=== PATIENT | male | born 1965 ===

== ENCOUNTER 2016-08-28 23:39 | Inpatient (IN) | payer MEDICAID ==
[2016-08-29] MEDS ORDERED: Albuterol-Ipratrop 3 mg / 0.5 (3 ml) UD INH STA ×2 (00:10→00:28)
[2016-08-29] MEDS ORDERED: Azithromycin 500 MG in Sodium Chloride 0.9% 250 ML IVPB STA (00:14)
[2016-08-29] MEDS ORDERED: Albuterol-Ipratrop 3 mg / 0.5 (3 ml) UD ONE (00:34)
[2016-08-29 01:06] LABS: VENOUS BLOOD GAS BASE EXCESS -0.1 mmol/L (0.0-2.0); VENOUS BLOOD GAS MODE ROOM AIR; VENOUS BLOOD GAS PCO2 36 mmHg (40-60); VENOUS BLOOD PH 7.43 (7.32-7.43)
[2016-08-29 01:21] LABS: BASO % 0.1 % (0.0-2.0); HEMATOCRIT 39.1 % (35.0-51.0); LYMPH # 0.8 K/uL (1.0-4.3); LYMPH % 11.5 % (20.0-40.0); MEAN CORPUSCULAR HEMOGLOBIN 27.6 pg (27.0-31.0); MEAN CORPUSCULAR HGB CONC 32.5 g/dL (33.0-37.0); MEAN PLATELET VOLUME 8.6 fl (7.2-11.7); MONO # 0.7 K/uL (0.0-0.8); MONO % 10.1 % (0.0-10.0); NEUT # 5.3 K/uL (1.8-7.0); NEUT % 78.3 % (50.0-75.0); RED CELL DISTRIBUTION WIDTH 14.2 % (11.5-14.5); WHITE BLOOD COUNT 6.7 K/uL (4.8-10.8)
[2016-08-29 01:32] LABS: ALB/GLOB RATIO 1.2 (1.0-2.1); BILIRUBIN,TOTAL 0.3 mg/dl (0.2-1.3); CALCIUM 9.2 mg/dL (8.4-10.2)
--- NOTE | 2016-08-29 01:32 | ED PDOC ---
HPI: General Adult Time Seen by Provider: 08/29/16 00:01 Chief Complaint (Nursing): Flu-like Symptoms Chief Complaint (Provider): Cough, Fever, Weakness History Per: Patient History/Exam Limitations: no limitations Onset/Duration Of Symptoms: Days (2 days) Have you had recent travel within the past 21 days to any of the following countries: [place], [place], [place] or [place]?: No Current Symptoms Are (Timing): Still Present Additional Complaint(s): Rodriguez Marroquin, a 51 year old male, with a PMHx of asthma and sleep apnea presents to the ED for cough, fever and weakness which he has been experiencing for 2 days. The patient states that he was seen 4 hours prior at [facility] where he was diagnosed with bronchitis and sent home. Xrays from [facility] were reviewed by the provider and show left lower lobe pneumonia. The patient reports no improvement with the medicine he has been prescribed. He states that he currently presenting to the ED for evaluation of shortness of breath, fever and cough. The patient describes having chills, fever and cough productive of yellow phlegm. No associated nausea, vomiting and diarrhea. Past Medical History Reviewed: Historical Data, Nursing Documentation, Vital Signs Vital Signs: Last Vital Signs Temp 100.8 F H 08/28/16 23:40 Pulse 129 H 08/28/16 23:40 Resp 17 08/28/16 23:40 BP 121/81 08/28/16 23:40 Pulse Ox 98 08/29/16 02:23 - Medical History PMH: Asthma, Diabetes, HTN Other PMH: Obesity, Eczema. - Surgical History Surgical History: No Surg Hx - Family History Family History: States: Unknown Family Hx - Social History Current smoker - smoking cessation education provided: No Ex-Smoker (has not smoked in the last 12 months): No Alcohol: None Drugs: Denies - Immunization History Hx Tetanus Toxoid Vaccination: Yes Hx Influenza Vaccination: Yes Hx Pneumococcal Vaccination: Yes - Home Medications Home Medications: Ambulatory Orders Medication Instructions Recorded Albuterol HFA [Ventolin HFA 90 1 puff IH Q6 #1 inhaler 08/28/16 mcg/actuation (8 g)] Benzonatate [Tessalon Perle] 100 mg PO TID #14 capsule 08/28/16 Cefdinir [Omnicef] 300 mg PO BID #14 cap 08/28/16 Metoprolol Succinate [Toprol XL] 100 mg PO DAILY 08/28/16 Prednisone [Deltasone] 40 mg PO DAILY #6 tablet 08/28/16 metFORMIN [glucOPHAGE] 500 mg PO DAILY 08/28/16 - Allergies Allergies/Adverse Reactions: Allergies Allergy/AdvReac Type Severity Reaction Status Date / Time No Known Allergies Allergy Verified 08/28/16 06:05 Review of Systems ROS Statement: Except As Marked, All Systems Reviewed And Found Negative Constitutional: Positive for: Fever, Chills, Weakness Respiratory: Positive for: Cough (Cough productive of yellow phlegm.), Shortness of Breath Gastrointestinal: Negative for: Nausea, Vomiting, Diarrhea Physical Exam - Reviewed Nursing Documentation Reviewed: Yes Vital Signs Reviewed: Yes - Physical Exam Appears: Positive for: Uncomfortable Head Exam: Positive for: ATRAUMATIC, NORMOCEPHALIC Skin: Positive for: Warm, Dry, Rash (Diffused psoriatic rash.) Eye Exam: Positive for: Normal appearance, EOMI, PERRL ENT: Positive for: Normal ENT Inspection Neck: Positive for: Normal, Painless ROM, Supple Cardiovascular/Chest: Positive for: Regular Rate, Rhythm, Chest Non Tender, Tachycardia Respiratory: Positive for: Rales (Bibasalar rales). Negative for: Wheezing, Respiratory Distress Gastrointestinal/Abdominal: Positive for: Bowel Sounds, Soft. Negative for: Tenderness Back: Positive for: Normal Inspection. Negative for: L CVA Tenderness, R CVA Tenderness Extremity: Positive for: Normal ROM. Negative for: Tenderness, Deformity, Swelling Neurologic/Psych: Positive for: Alert, Oriented - Laboratory Results Result Diagrams: 08/29/16 00:50 08/29/16 00:50 - ECG O2 Sat by Pulse Oximetry: 98 (RA) Pulse Ox Interpretation: Normal Medical Decision Making Medical Decision Makin:01 Initial Impression: 51 year old female presenting with pnuemonia in setting of known diabetes, eczema and sleep apnea. Initial plan: * VBG shock panel * EKG * CMP * CBC * Duoneb 3ml INH * Rocephin 1gm NS 100ml iVPB * Tylenol 650mg PO * Tylenol 975mg PO * Zithromax 500mg NS 250ml IVPB * Blood culture * Peak flow pre/post * ED observation * Admit 1:08 8 Patient will be placed on ED Observation status for further treatment., arrangements made with Dr. Duenas who covers Dr. Joshua. Dx: Pneumonia Condition: fair Scribe Attestation Documented by Lizy Molina acting as a scribe for Yifan Kamara MD. Provider Attestation: All medical record entries made by the Scribe were at my direction and personally dictated by me. I have reviewed the chart and agree that the record accurately reflects my personal performance of the history, physical exam, medical decision making, and the department course for this patient. I have also personally directed, reviewed, and agree with the discharge instructions and disposition. Disposition - Clinical Impression Clinical Impression: Pneumonia - Patient ED Disposition Is Patient to be Admitted: Yes Discussed With DrJoshua: Jorge Alberto Costa - Disposition Disposition Time: 01:00 Condition: FAIR - Pt Status Changed To: Hospital Disposition Of: Observation Curb-65 Severity Score - CURB-65 Severity Score Confusion: No Bun >19mg/dl (>7mmol/L): No Respiratory Rate greater than/equal to 30: No Systolic BP <90 or Diastolic BP less than/equal 60mmHg: No Age >64: No Curb-65 Score: 0 Percentage 30-day mortality: 0.6%
[2016-08-29] MEDS ORDERED: cefTRIAXone (Rocephin) 1 gm Inj ONE (02:55)
[2016-08-29] MEDS: guaiFENesin DM 200 mg-20 mg/10 ml UD PO PRN ×2 (06:28→15:26)
[2016-08-29] MEDS: Insulin Regular 100 units/ml SC SCH ×5 (06:29→23:24)
[2016-08-29] MEDS: Azithromycin 500 MG in Sodium Chloride 0.9% 250 ML IVPB SCH (09:56)
[2016-08-29] MEDS: Enoxaparin 40 mg Syringe SC SCH (12:09)
--- NOTE | 2016-08-29 12:28 | CP.PCM.HP ---
<Kamila Johnson - Last Filed: 08/29/16 12:23> History of Present Illness - History of Present Illness History of Present Illness: 51yo M with PMHx asthma, DM, HTN, and ADRIENNE admitted for PNA. c/o SOB x3 days. Denies fever, chest pain, wheezing. a/w productive cough. Pt evaluated at [facility] ED and d/c with omnicef for likely bronchitis. Final read on CXR shows likely LLL PNA. PMHx: as above SHx: denies FH: NC Allergies: NKDA Social hx: denies x3 evaluated with attending Present on Admission - Present on Admission Any Indicators Present on Admission: No Review of Systems - Constitutional Constitutional: absent: Chills, Fever - Cardiovascular Cardiovascular: absent: Chest Pain - Respiratory Respiratory: Cough, Dyspnea - Gastrointestinal Gastrointestinal: absent: Abdominal Pain, Diarrhea, Nausea, Vomiting - Genitourinary Genitourinary: absent: Dysuria, Hematuria - Musculoskeletal Musculoskeletal: absent: Back Pain - Neurological Neurological: absent: Headaches Past Patient History - Past Medical History & Family History Past Medical History?: Yes - Past Social History Smoking Status: Never Smoked - CARDIAC Hx Cardiac Disorders: Yes Hx Hypertension: Yes - PULMONARY Hx Respiratory Disorders: Yes Hx Asthma: Yes Hx Sleep Apnea: Yes - NEUROLOGICAL Hx Neurological Disorder: No - HEENT Hx HEENT Problems: No - RENAL Hx Chronic Kidney Disease: No - ENDOCRINE/METABOLIC Hx Endocrine Disorders: Yes Hx Diabetes Mellitus Type 2: Yes - HEMATOLOGICAL/ONCOLOGICAL Hx Blood Disorders: No - INTEGUMENTARY Hx Dermatological Problems: Yes Hx Psoriasis: Yes - MUSCULOSKELETAL/RHEUMATOLOGICAL Hx Falls: No - GENITOURINARY/GYNECOLOGICAL Hx Genitourinary Disorders: No - PSYCHIATRIC Hx Substance Use: No - SURGICAL HISTORY Other/Comment: right ankle,knee,hand surgery - ANESTHESIA Hx Anesthesia: Yes Hx Anesthesia Reactions: No Hx Malignant Hyperthermia: No Has any member of the family had a problem w/ anesthesia?: No Meds Allergies/Adverse Reactions: Allergies Allergy/AdvReac Type Severity Reaction Status Date / Time No Known Allergies Allergy Verified 08/28/16 06:05 Physical Exam - Head Exam Head Exam: ATRAUMATIC, NORMAL INSPECTION - Eye Exam Eye Exam: Normal appearance - ENT Exam ENT Exam: Mucous Membranes Moist - Respiratory Exam Respiratory Exam: Wheezes. absent: Rhonchi - Cardiovascular Exam Cardiovascular Exam: REGULAR RHYTHM - GI/Abdominal Exam GI & Abdominal Exam: Soft - Extremities Exam Extremities exam: Positive for: normal inspection - Back Exam Back exam: NORMAL INSPECTION - Neurological Exam Neurological exam: Alert, Oriented x3 - Skin Skin Exam: Dry, Warm Results - Vital Signs Recent Vital Signs: Last Vital Signs Temp 98.3 F 08/29/16 07:59 Pulse 89 08/29/16 08:57 Resp 20 08/29/16 07:59 BP 118/70 08/29/16 08:57 Pulse Ox 94 L 08/29/16 07:59 - Labs Result Diagrams: 08/29/16 00:50 08/29/16 00:50 Labs: Laboratory Results - last 24 hr 08/29/16 08/29/16 06:20 10:44 POC Glucose (mg/dL) 177 H 283 H Assessment & Plan - Assessment and Plan (Free Text) Assessment: 51yo M with PMHx asthma, DM, HTN, and ADRIENNE admitted for PNA. PNA -ceftriaxone, azithromycin -tessalon pearle -FU blood cx, sputum cx -O2 prn asthma -breathing tx DM -c/w home med -SSI -accuchecks HTN -c/w home med DVT ppx -lovenox Dispo: Will admit as inpatient from obs as pt has continued SOB. Decision To Admit - Pt Status Changed To: Hospital Disposition Of: Inpatient - Admit Certification Admit to Inpatient:: After my assessment, the patient will require hospitalization for at least two midnights. This is because of the severity of symptoms shown, intensity of services needed, and/or the medical risk in this patient being treated as an outpatient. - . Bed Request Type: Med/Surg Admitting Physician: Jorge Alberto Costa <Jorge Alberto Costa - Last Filed: 09/03/16 13:02> Results - Vital Signs Recent Vital Signs: Last Vital Signs Temp 98.6 F 09/03/16 07:59 Pulse 65 09/03/16 07:59 Resp 20 09/03/16 07:59 BP 113/85 09/03/16 09:16 Pulse Ox 98 09/03/16 07:59 - Labs Result Diagrams: 09/02/16 08:00 09/02/16 08:00 Labs: Laboratory Results - last 24 hr 09/02/16 09/02/16 09/03/16 16:18 21:52 06:25 POC Glucose (mg/dL) 164 H 189 H 175 H 09/03/16 10:40 POC Glucose (mg/dL) 167 H Assessment & Plan (1) Pneumonia Status: Acute (2) Diabetes mellitus type 2 in obese Status: Acute - Assessment and Plan (Free Text) Plan: I was present durng evaluation and examined patient and discussed with Dr Kamila almeida plans of care Jorge Alberto Costa M.D.
[2016-08-29] MEDS ORDERED: Dextrose 50% SYRINGE Inj (50 ml) IVP PRN (12:32)
[2016-08-29] MEDS ORDERED: Glucagon Recombinant 1 mg Inj IM PRN (12:32)
[2016-08-29] MEDS ORDERED: Sodium Chloride 3% for Inhalation 4 ML VIAL.NEB IH PRN (12:33)
[2016-08-29] MEDS: Albuterol-Ipratrop 3 mg / 0.5 (3 ml) UD INH SCH ×2 (15:56→19:30)
[2016-08-30] MEDS: Insulin Regular 100 units/ml SC SCH ×3 (06:38→16:43)
[2016-08-30] MEDS: Albuterol-Ipratrop 3 mg / 0.5 (3 ml) UD INH SCH ×4 (07:34→19:37)
[2016-08-30 07:35] LABS: HEMATOCRIT 41.1 % (35.0-51.0); MEAN CELL VOLUME 86.1 fl (80.0-94.0); MEAN CORPUSCULAR HEMOGLOBIN 27.9 pg (27.0-31.0); MEAN CORPUSCULAR HGB CONC 32.4 g/dL (33.0-37.0); RED CELL DISTRIBUTION WIDTH 14.5 % (11.5-14.5); WHITE BLOOD COUNT 6.8 K/uL (4.8-10.8)
[2016-08-30 07:42] LABS: BLOOD UREA NITROGEN 11 mg/dl (9-20); CALCIUM 8.6 mg/dL (8.4-10.2); CARBON DIOXIDE 25 mmol/L (22-30); CHLORIDE 101 mmol/L (98-107); GFR AFRICAN-AMERICAN > 60; GLUCOSE,RANDOM 157 mg/dL (75-110); SODIUM 136 mmol/l (132-148)
[2016-08-30] MEDS: Enoxaparin 40 mg Syringe SC SCH (08:42)
[2016-08-30] MEDS: Azithromycin 500 MG in Sodium Chloride 0.9% 250 ML IVPB SCH (08:46)
--- NOTE | 2016-08-30 10:48 | PQF GENQUE ---
Dr. Costa, 2 (two) queries as follows: 1. Please clarify type of asthma: if known Childhood Cough variant Exercise induced Late onset Mild intermittent Mild persistent Moderate persistent Severe persistent With bronchitis(please clarify acuity of bronchitis) With chronic lung disease (please document specific chronic lung disease) Other (please specify) OR: Unable to determine OR: Unknown 2. Please clarify acuity of asthma: if known Uncomplicated With exacerbation(acute) With status asthmaticus OR: Unable to determine OR: Unknown -H and P: diagnoses include Pneumonia and asthma -Duoneb stat x 2 in ED: followed by q 4 hrs, O2 This form is a permanent part of the medical record Clarification of your documentation is requested to better reflect the severity of illness and intensity of treatment of your patient. Indicators present [] Specify: [] [] Specify: [] [] Specify: [] [] Specify: [] Location in the medical record that reflects the above clinical findings: [] Treatment Provided: [] PHYSICIAN'S RESPONSE Based on your medical judgment of the clinical indicators outlined above please clarify the following: [] Practitioner response [] If unable to determine, please check the box, sign and date. Present On Admission (POA) Indicator: [] Present at the time of admission [] Not present at the time of admission [] Clinically Undetermined In responding to this query, please exercise your independent professional judgment. The fact that a question is asked does not imply that any particular answer is desired or expected. Thank you for your clarification on this documentation. If you have any questions please call. * Thank you, Ange Suarez RN BSN ext. #[phone] MTDD
--- NOTE | 2016-08-30 10:50 | PQF GENQUE ---
Dr. Costa, Please specify type of pneumonia :if known Aspiration pneumonia Please indicate if this is postprocedural Bacterial (specify organism) Bronchopneumonia (specify organism) Interstitual pneumonia Organizing pneumonia/BOOP Pneumonia with influenza, dario flu, or H1N1 flu RSV pneumonia Viral pneumonia Other pneumonia (specify organism or type) if known OR: Unable to determine OR:Unknown Please specify the organism causing the pneumonia: if known after the work up is completed Note: CAP, HAP, and HCAP indicate where the pneumonia was acquired, not a specific type. H and P: PNA -ceftriaxone, azithromycin -tessalon pearle -FU blood cx, sputum cx -O2 prn asthma -breathing tx WBC: 6.7->6.8 left shift blood culture prelim :no growth after 24 hrs This form is a permanent part of the medical record Clarification of your documentation is requested to better reflect the severity of illness and intensity of treatment of your patient. Indicators present [] Specify: [] [] Specify: [] [] Specify: [] [] Specify: [] Location in the medical record that reflects the above clinical findings: [] Treatment Provided: [] PHYSICIAN'S RESPONSE Based on your medical judgment of the clinical indicators outlined above please clarify the following: [] Practitioner response [] If unable to determine, please check the box, sign and date. Present On Admission (POA) Indicator: [] Present at the time of admission [] Not present at the time of admission [] Clinically Undetermined In responding to this query, please exercise your independent professional judgment. The fact that a question is asked does not imply that any particular answer is desired or expected. Thank you for your clarification on this documentation. If you have any questions please call. * Thank you, Ange Suarez RN BSN ext. #[phone] MTDD
--- NOTE | 2016-08-30 10:52 | PQF GENQUE ---
Dr. Costa, 2 (two) queries as follows: In agreement with the BMI:40.7 listed in the EMR? (1) If you agree please add the BMI to your progress note (2) Please include any associated diagnosis OR: Disagree OR: Other explanation of clinical finding OR: Unable to determine Listed in the EMR:6ft 300lb BMI:40.7 This form is a permanent part of the medical record Clarification of your documentation is requested to better reflect the severity of illness and intensity of treatment of your patient. Indicators present [] Specify: [] [] Specify: [] [] Specify: [] [] Specify: [] Location in the medical record that reflects the above clinical findings: [] Treatment Provided: [] PHYSICIAN'S RESPONSE Based on your medical judgment of the clinical indicators outlined above please clarify the following: [] Practitioner response [] If unable to determine, please check the box, sign and date. Present On Admission (POA) Indicator: [] Present at the time of admission [] Not present at the time of admission [] Clinically Undetermined In responding to this query, please exercise your independent professional judgment. The fact that a question is asked does not imply that any particular answer is desired or expected. Thank you for your clarification on this documentation. If you have any questions please call. * Thank you, Ange Suarez RN BSN ext. #[phone] MTDD
--- NOTE | 2016-08-30 11:09 | RAD ---
HISTORY: F/u pneumonia COMPARISON: No prior move TECHNIQUE: Chest PA and lateral FINDINGS: LUNGS: Left lower lobe infiltrate consistent with this patient's history of pneumonia. PLEURA: No significant pleural effusion identified. No pneumothorax apparent. CARDIOVASCULAR: Normal. OSSEOUS STRUCTURES: No significant abnormalities. VISUALIZED UPPER ABDOMEN: Normal. OTHER FINDINGS: None. IMPRESSION: Left lower lobe infiltrate consistent with this patient's history of pneumonia. Bold
--- NOTE | 2016-08-30 15:55 | CP.PCM.PN ---
<Kamila Johnson - Last Filed: 08/30/16 15:51> Subjective - Date & Time of Evaluation Date of Evaluation: 08/30/16 Time of Evaluation: 15:51 - Subjective Subjective: d/w attending. no overnight events. feeling better, SOB improved. tolerating PO. Objective - Vital Signs/Intake and Output Vital Signs (last 24 hours): Temp Pulse Resp BP Pulse Ox 99 F 95 H 22 144/70 93 L 08/30/16 08:26 08/30/16 08:40 08/30/16 08:26 08/30/16 08:40 08/30/16 08:26 - Medications Medications: Current Medications Acetaminophen (Tylenol 325mg Tab) 650 mg PO Q4 PRN PRN Reason: temp 101 and above Last Admin: 08/30/16 00:13 Dose: 650 mg Albuterol/Ipratropium (Duoneb 3 Mg/0.5 Mg (3 Ml) Ud) 3 ml INH RQID [facility] Last Admin: 08/30/16 11:12 Dose: 3 ml Benzonatate (Tessalon Perles) 100 mg PO TID [facility] Last Admin: 08/29/16 16:54 Dose: 100 mg Dextrose (Dextrose 50% Inj) 0 ml IVP STAT PRN; Protocol PRN Reason: Hypoglycemia Protocol Enoxaparin Sodium (Lovenox) 40 mg SC DAILY [facility] PRN Reason: Protocol Last Admin: 08/30/16 08:42 Dose: 40 mg Glucagon (Glucagen Diagnostic Kit) 0 mg IM STAT PRN; Protocol PRN Reason: Hypoglycemia Protocol Guaifenesin/Dextromethorphan (Robitussin Dm) 10 ml PO Q6 PRN PRN Reason: Cough Last Admin: 08/29/16 15:26 Dose: 10 ml Ceftriaxone Sodium 1 gm/ (Sodium Chloride) 100 mls @ 100 mls/hr IVPB DAILY [facility] Last Admin: 08/30/16 08:43 Dose: 100 mls/hr Azithromycin 500 mg/ Sodium (Chloride) 250 mls @ 250 mls/hr IVPB DAILY [facility] Last Admin: 08/30/16 08:46 Dose: 250 mls/hr Insulin Human Regular (Humulin R) 0 units SC ACCU-CHECK CHUN PRN Reason: Protocol Last Admin: 08/30/16 12:38 Dose: 2 unit Losartan Potassium (Cozaar) 100 mg PO DAILY [facility] Last Admin: 08/30/16 08:40 Dose: 100 mg Metformin HCl (Glucophage) 500 mg PO DAILY [facility] Last Admin: 08/30/16 08:41 Dose: 500 mg - Labs Labs: 08/30/16 07:04 08/30/16 07:04 - Constitutional Appears: Non-toxic, No Acute Distress - Head Exam Head Exam: ATRAUMATIC, NORMAL INSPECTION - Eye Exam Eye Exam: Normal appearance - ENT Exam ENT Exam: Mucous Membranes Moist - Neck Exam Neck Exam: Normal Inspection - Respiratory Exam Respiratory Exam: Clear to Ausculation Bilateral - Cardiovascular Exam Cardiovascular Exam: REGULAR RHYTHM - GI/Abdominal Exam GI & Abdominal Exam: Soft - Extremities Exam Extremities Exam: Normal Inspection - Back Exam Back Exam: NORMAL INSPECTION - Neurological Exam Neurological Exam: Alert, Oriented x3 - Skin Skin Exam: Dry, Warm Additional comments: psoriasis trunk extremities Assessment and Plan - Assessment and Plan (Free Text) Assessment: 51yo M with PMHx asthma, DM, HTN, and ADRIENNE admitted for PNA. community aquired PNA -febrile -ceftriaxone, azithromycin -tessalon pearle -blood cx NGTD -FU sputum cx -O2 prn asthma, type unspecified -breathing tx DM -c/w home med -SSI -accuchecks HTN -c/w home med morbid obesity -BMI 40.7 DVT ppx -lovenox Dispo: likely d/c tmrw if afebrile with ceftin and zithromax <Jorge Alberto Costa - Last Filed: 09/03/16 12:18> Objective - Vital Signs/Intake and Output Vital Signs (last 24 hours): Temp Pulse Resp BP Pulse Ox 98.6 F 65 20 113/85 98 09/03/16 07:59 09/03/16 07:59 09/03/16 07:59 09/03/16 09:16 09/03/16 07:59 - Medications Medications: Current Medications Acetaminophen (Tylenol 325mg Tab) 650 mg PO Q4 PRN PRN Reason: fever, headache Last Admin: 09/03/16 04:32 Dose: 650 mg Albuterol/Ipratropium (Duoneb 3 Mg/0.5 Mg (3 Ml) Ud) 3 ml INH RQID [facility] Last Admin: 09/03/16 11:35 Dose: 3 ml Dextrose (Dextrose 50% Inj) 0 ml IVP STAT PRN; Protocol PRN Reason: Hypoglycemia Protocol Enoxaparin Sodium (Lovenox) 40 mg SC DAILY [facility] PRN Reason: Protocol Last Admin: 09/03/16 09:16 Dose: 40 mg Glucagon (Glucagen Diagnostic Kit) 0 mg IM STAT PRN; Protocol PRN Reason: Hypoglycemia Protocol Insulin Human Regular (Humulin R) 0 units SC ACCU-CHECK CHUN PRN Reason: Protocol Last Admin: 09/03/16 06:36 Dose: 1 u Losartan Potassium (Cozaar) 100 mg PO DAILY [facility] Last Admin: 09/03/16 09:16 Dose: 100 mg Metformin HCl (Glucophage) 500 mg PO DAILY [facility] Last Admin: 09/03/16 09:19 Dose: Not Given - Labs Labs: 09/02/16 08:00 09/02/16 08:00 Assessment and Plan - Assessment and Plan (Free Text) Plan: I was present during evaluation and discussed with Dr Kamila almeida plans of care. Jorge Alberto Costa M.D.
[2016-08-30] MEDS: guaiFENesin DM 200 mg-20 mg/10 ml UD PO PRN (22:27)
[2016-08-31] MEDS: Insulin Regular 100 units/ml SC SCH ×5 (00:27→23:14)
[2016-08-31 02:32] LABS: RBC URINE 2 /hpf (0-3); URINE BILIRUBIN NEGATIVE (NEGATIVE); URINE BLOOD NEGATIVE (NEGATIVE); URINE COLOR YELLOW (YELLOW); URINE GLUCOSE (UA) NEG (Normal); URINE KETONE NEGATIVE (NEGATIVE); URINE LEUKOCYTE ESTERASE NEG Leu/uL (Negative); URINE PROTEIN 30 mg/dL (NEGATIVE); URINE UROBILINOGEN 0.2-1.0 mg/dL (0.2-1.0); WBC URINE 1 /hpf (0-5)
[2016-08-31 07:53] LABS: HEMATOCRIT 39.4 % (35.0-51.0); MEAN CELL VOLUME 85.7 fl (80.0-94.0); MEAN CORPUSCULAR HGB CONC 32.6 g/dL (33.0-37.0); RED CELL DISTRIBUTION WIDTH 14.5 % (11.5-14.5); WHITE BLOOD COUNT 5.8 K/uL (4.8-10.8)
[2016-08-31] MEDS: Albuterol-Ipratrop 3 mg / 0.5 (3 ml) UD INH SCH ×4 (08:05→20:04)
[2016-08-31 08:15] LABS: BLOOD UREA NITROGEN 10 mg/dl (9-20); CALCIUM 8.9 mg/dL (8.4-10.2); CARBON DIOXIDE 28 mmol/L (22-30); CHLORIDE 101 mmol/L (98-107); GFR AFRICAN-AMERICAN > 60; GLUCOSE,RANDOM 165 mg/dL (75-110); POTASSIUM 3.7 MMOL/L (3.6-5.0); SODIUM 138 mmol/l (132-148)
[2016-08-31] MEDS: Enoxaparin 40 mg Syringe SC SCH (08:36)
[2016-08-31] MEDS: Azithromycin 500 MG in Sodium Chloride 0.9% 250 ML IVPB SCH (08:37)
[2016-08-31] MEDS ORDERED: Sodium Chloride 3% for Inhalation 4 ML VIAL.NEB IH PRN (09:07)
--- NOTE | 2016-08-31 09:10 | CP.PCM.PN ---
<Kamila Johnson - Last Filed: 08/31/16 09:04> Subjective - Date & Time of Evaluation Date of Evaluation: 08/31/16 Time of Evaluation: 09:04 - Subjective Subjective: evaluated with attending. no overnight events. feeling better, SOB improved. tolerating PO. c/o blood in sputum x1 Objective - Vital Signs/Intake and Output Vital Signs (last 24 hours): Temp Pulse Resp BP Pulse Ox 98 F 63 20 120/87 94 L 08/31/16 08:16 08/31/16 08:35 08/31/16 08:16 08/31/16 08:35 08/31/16 08:16 - Medications Medications: Current Medications Acetaminophen (Tylenol 325mg Tab) 650 mg PO Q4 PRN PRN Reason: fever, headache Albuterol/Ipratropium (Duoneb 3 Mg/0.5 Mg (3 Ml) Ud) 3 ml INH RQID [facility] Last Admin: 08/31/16 08:05 Dose: 3 ml Benzonatate (Tessalon Perles) 100 mg PO TID [facility] Last Admin: 08/31/16 08:40 Dose: 100 mg Dextrose (Dextrose 50% Inj) 0 ml IVP STAT PRN; Protocol PRN Reason: Hypoglycemia Protocol Enoxaparin Sodium (Lovenox) 40 mg SC DAILY [facility] PRN Reason: Protocol Last Admin: 08/31/16 08:36 Dose: 40 mg Glucagon (Glucagen Diagnostic Kit) 0 mg IM STAT PRN; Protocol PRN Reason: Hypoglycemia Protocol Guaifenesin/Dextromethorphan (Robitussin Dm) 10 ml PO Q6 PRN PRN Reason: Cough Last Admin: 08/30/16 22:27 Dose: 10 ml Ceftriaxone Sodium 1 gm/ (Sodium Chloride) 100 mls @ 100 mls/hr IVPB DAILY [facility] Last Admin: 08/31/16 08:36 Dose: 100 mls/hr Azithromycin 500 mg/ Sodium (Chloride) 250 mls @ 250 mls/hr IVPB DAILY [facility] Last Admin: 08/31/16 08:37 Dose: 250 mls/hr Insulin Human Regular (Humulin R) 0 units SC ACCU-CHECK [facility] PRN Reason: Protocol Last Admin: 08/31/16 07:27 Dose: 1 unit Losartan Potassium (Cozaar) 100 mg PO DAILY [facility] Last Admin: 08/31/16 08:35 Dose: 100 mg Metformin HCl (Glucophage) 500 mg PO DAILY [facility] Last Admin: 08/31/16 08:36 Dose: 500 mg - Labs Labs: 08/31/16 06:50 08/31/16 06:50 - Constitutional Appears: Non-toxic, No Acute Distress - Head Exam Head Exam: NORMAL INSPECTION - Eye Exam Eye Exam: Normal appearance - ENT Exam ENT Exam: Mucous Membranes Moist - Neck Exam Neck Exam: Normal Inspection - Respiratory Exam Respiratory Exam: Clear to Ausculation Bilateral, NORMAL BREATHING PATTERN - Cardiovascular Exam Cardiovascular Exam: REGULAR RHYTHM - GI/Abdominal Exam GI & Abdominal Exam: Soft - Extremities Exam Extremities Exam: Normal Inspection - Back Exam Back Exam: NORMAL INSPECTION - Neurological Exam Neurological Exam: Alert, Oriented x3 - Skin Skin Exam: Dry, Warm Assessment and Plan - Assessment and Plan (Free Text) Assessment: 51yo M with PMHx asthma, DM, HTN, and ADRIENNE admitted for PNA. community aquired PNA -afebrile -ceftriaxone, azithromycin -tessalon pearle -blood cx NGTD -FU sputum cx -repeat sputum cx -CT chest -O2 prn asthma, type unspecified -breathing tx DM -c/w home med -SSI -accuchecks HTN -c/w home med morbid obesity -BMI 40.7 DVT ppx -lovenox Dispo: likely d/c tmrw after repeat sputum cx and CT chest with ceftin and zithromax <Jorge Alberto Costa - Last Filed: 09/03/16 12:19> Objective - Vital Signs/Intake and Output Vital Signs (last 24 hours): Temp Pulse Resp BP Pulse Ox 98.6 F 65 20 113/85 98 09/03/16 07:59 09/03/16 07:59 09/03/16 07:59 09/03/16 09:16 09/03/16 07:59 - Medications Medications: Current Medications Acetaminophen (Tylenol 325mg Tab) 650 mg PO Q4 PRN PRN Reason: fever, headache Last Admin: 09/03/16 04:32 Dose: 650 mg Albuterol/Ipratropium (Duoneb 3 Mg/0.5 Mg (3 Ml) Ud) 3 ml INH RQID [facility] Last Admin: 09/03/16 11:35 Dose: 3 ml Dextrose (Dextrose 50% Inj) 0 ml IVP STAT PRN; Protocol PRN Reason: Hypoglycemia Protocol Enoxaparin Sodium (Lovenox) 40 mg SC DAILY [facility] PRN Reason: Protocol Last Admin: 09/03/16 09:16 Dose: 40 mg Glucagon (Glucagen Diagnostic Kit) 0 mg IM STAT PRN; Protocol PRN Reason: Hypoglycemia Protocol Insulin Human Regular (Humulin R) 0 units SC ACCU-CHECK [facility] PRN Reason: Protocol Last Admin: 09/03/16 06:36 Dose: 1 u Losartan Potassium (Cozaar) 100 mg PO DAILY [facility] Last Admin: 09/03/16 09:16 Dose: 100 mg Metformin HCl (Glucophage) 500 mg PO DAILY [facility] Last Admin: 09/03/16 09:19 Dose: Not Given - Labs Labs: 09/02/16 08:00 09/02/16 08:00 Assessment and Plan - Assessment and Plan (Free Text) Plan: I was present during evaluation and discussed with Dr Kamila almeida plans of care. Jorge Alberto Costa M.D.
--- NOTE | 2016-08-31 16:05 | CT ---
PROCEDURE: CT Chest without contrast HISTORY: PNA COMPARISON: None. TECHNIQUE: Contiguous axial images were obtained through the chest without intravenous contrast enhancement. Sagittal and coronal reconstructions were performed. Radiation dose (DLP): 719 mGy-cm. This CT exam was performed using one or more of the following dose reduction techniques: Automated exposure control, adjustment of the mA and/or kV according to patient size, and/or use of iterative reconstruction technique. FINDINGS: LUNGS: Large left lower lobe infiltrate with areas of ground-glass density predominantly and few areas of consolidation. MEDIASTINUM: Unremarkable thoracic aorta. No aneurysm. Normal sized heart. Main pulmonary artery unremarkable. No vascular congestion. No lymphadenopathy. PLEURA: No pleural fluid. No pneumothorax. BONES: No fracture. No destructive lesion. UPPER ABDOMEN: Grossly unremarkable. OTHER FINDINGS: None. IMPRESSION: Large ground-glass density infiltrates/pneumonia at the left base.
[2016-08-31] MEDS: guaiFENesin DM 200 mg-20 mg/10 ml UD PO PRN (23:57)
[2016-09-01] MEDS: Insulin Regular 100 units/ml SC SCH ×4 (06:40→22:00)
[2016-09-01] MEDS: Albuterol-Ipratrop 3 mg / 0.5 (3 ml) UD INH SCH ×4 (07:52→19:01)
[2016-09-01] MEDS: Enoxaparin 40 mg Syringe SC SCH (09:12)
[2016-09-01] MEDS: Azithromycin 500 MG in Sodium Chloride 0.9% 250 ML IVPB SCH (09:14)
[2016-09-01 10:47] LABS: HEMATOCRIT 39.5 % (35.0-51.0); MEAN CELL VOLUME 85.7 fl (80.0-94.0); MEAN CORPUSCULAR HEMOGLOBIN 27.9 pg (27.0-31.0); MEAN CORPUSCULAR HGB CONC 32.6 g/dL (33.0-37.0); RED CELL DISTRIBUTION WIDTH 14.5 % (11.5-14.5); WHITE BLOOD COUNT 4.7 K/uL (4.8-10.8)
[2016-09-01 10:57] LABS: BLOOD UREA NITROGEN 10 mg/dl (9-20); CALCIUM 9.3 mg/dL (8.4-10.2); CARBON DIOXIDE 27 mmol/L (22-30); CHLORIDE 100 mmol/L (98-107); GFR AFRICAN-AMERICAN > 60; GLUCOSE,RANDOM 213 mg/dL (75-110); SODIUM 136 mmol/l (132-148)
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
--- NOTE | 2016-09-01 14:58 | CP.PCM.PN ---
<Kamila Johnson - Last Filed: 09/01/16 14:52> Subjective - Date & Time of Evaluation Date of Evaluation: 09/01/16 Time of Evaluation: 14:52 - Subjective Subjective: evaluated with attending. no overnight events. feeling better, SOB improved. tolerating PO. Objective - Vital Signs/Intake and Output Vital Signs (last 24 hours): Temp Pulse Resp BP Pulse Ox 98.2 F 74 18 136/83 93 L 09/01/16 08:18 09/01/16 09:11 09/01/16 08:18 09/01/16 09:11 09/01/16 08:18 - Medications Medications: Current Medications Acetaminophen (Tylenol 325mg Tab) 650 mg PO Q4 PRN PRN Reason: fever, headache Albuterol/Ipratropium (Duoneb 3 Mg/0.5 Mg (3 Ml) Ud) 3 ml INH RQID [facility] Last Admin: 09/01/16 11:03 Dose: 3 ml Dextrose (Dextrose 50% Inj) 0 ml IVP STAT PRN; Protocol PRN Reason: Hypoglycemia Protocol Enoxaparin Sodium (Lovenox) 40 mg SC DAILY [facility] [place] PRN Reason: Protocol Last Admin: 09/01/16 09:12 Dose: 40 mg Glucagon (Glucagen Diagnostic Kit) 0 mg IM STAT PRN; Protocol PRN Reason: Hypoglycemia Protocol Guaifenesin/Dextromethorphan (Mucinex-Dm 600-30 Mg) 2 tab PO BID [facility] Ceftriaxone Sodium 1 gm/ (Sodium Chloride) 100 mls @ 100 mls/hr IVPB DAILY [facility] [place] Last Admin: 09/01/16 09:13 Dose: 100 mls/hr Azithromycin 500 mg/ Sodium (Chloride) 250 mls @ 250 mls/hr IVPB DAILY [facility] [place] Last Admin: 09/01/16 09:14 Dose: 250 mls/hr Insulin Human Regular (Humulin R) 0 units SC ACCU-CHECK [facility] [place] PRN Reason: Protocol Last Admin: 09/01/16 13:34 Dose: 1 unit Losartan Potassium (Cozaar) 100 mg PO DAILY [facility] [place] Last Admin: 09/01/16 09:11 Dose: 100 mg Metformin HCl (Glucophage) 500 mg PO DAILY [facility] [place] Last Admin: 09/01/16 11:07 Dose: 500 mg - Labs Labs: 09/01/16 10:15 09/01/16 10:15 - Constitutional Appears: Non-toxic, No Acute Distress - Head Exam Head Exam: NORMAL INSPECTION - Eye Exam Eye Exam: Normal appearance - ENT Exam ENT Exam: Mucous Membranes Moist - Neck Exam Neck Exam: Normal Inspection - Respiratory Exam Respiratory Exam: Rales (LML) - Cardiovascular Exam Cardiovascular Exam: REGULAR RHYTHM - GI/Abdominal Exam GI & Abdominal Exam: Soft - Extremities Exam Extremities Exam: Normal Inspection - Back Exam Back Exam: NORMAL INSPECTION - Neurological Exam Neurological Exam: Alert, Oriented x3 - Skin Skin Exam: Dry, Warm Assessment and Plan - Assessment and Plan (Free Text) Assessment: 51yo M with PMHx asthma, DM, HTN, and ADRIENNE admitted for PNA. community aquired PNA -afebrile -ceftriaxone, azithromycin -tessalon pearle -blood cx NGTD -FU sputum cx -repeat sputum cx -CT chest: PNA -O2 prn -pulm c/s asthma, type unspecified -breathing tx DM -c/w home med -SSI -accuchecks HTN -c/w home med morbid obesity -BMI 40.7 DVT ppx -lovenox Dispo: likely d/c tmrw if afebrile <Jorge Alberto Costa - Last Filed: 09/03/16 12:19> Objective - Vital Signs/Intake and Output Vital Signs (last 24 hours): Temp Pulse Resp BP Pulse Ox 98.6 F 65 20 113/85 98 09/03/16 07:59 09/03/16 07:59 09/03/16 07:59 09/03/16 09:16 09/03/16 07:59 - Medications Medications: Current Medications Acetaminophen (Tylenol 325mg Tab) 650 mg PO Q4 PRN PRN Reason: fever, headache Last Admin: 09/03/16 04:32 Dose: 650 mg Albuterol/Ipratropium (Duoneb 3 Mg/0.5 Mg (3 Ml) Ud) 3 ml INH RQID [facility] Last Admin: 09/03/16 11:35 Dose: 3 ml Dextrose (Dextrose 50% Inj) 0 ml IVP STAT PRN; Protocol PRN Reason: Hypoglycemia Protocol Enoxaparin Sodium (Lovenox) 40 mg SC DAILY [facility] PRN Reason: Protocol Last Admin: 09/03/16 09:16 Dose: 40 mg Glucagon (Glucagen Diagnostic Kit) 0 mg IM STAT PRN; Protocol PRN Reason: Hypoglycemia Protocol Insulin Human Regular (Humulin R) 0 units SC ACCU-CHECK [facility] PRN Reason: Protocol Last Admin: 09/03/16 06:36 Dose: 1 u Losartan Potassium (Cozaar) 100 mg PO DAILY [facility] [place] Last Admin: 09/03/16 09:16 Dose: 100 mg Metformin HCl (Glucophage) 500 mg PO DAILY [facility] [place] Last Admin: 09/03/16 09:19 Dose: Not Given - Labs Labs: 09/02/16 08:00 09/02/16 08:00 Assessment and Plan - Assessment and Plan (Free Text) Plan: I was present during evaluation and discussed with Dr Kamila almeida plans of care and mgt. Jorge Alberto Costa M.D.
[2016-09-01] MEDS ORDERED: guaiFENesin-DM 600-30 mg ER Tab PO SCH (17:00)
[2016-09-01] MEDS: guaiFENesin-DM 600-30 mg ER Tab PO SCH (18:40)
--- NOTE | 2016-09-01 19:12 | CARD ---
APPROVED REPORT EKG Measurement Heart [id number] <Conclusion> Sinus tachycardia Possible Left atrial enlargement Left ventricular hypertrophy Nonspecific ST abnormality Abnormal ECG
[2016-09-02] MEDS: Albuterol-Ipratrop 3 mg / 0.5 (3 ml) UD INH SCH ×5 (07:48→20:02)
[2016-09-02 09:32] LABS: HEMATOCRIT 40.9 % (35.0-51.0); MEAN CELL VOLUME 84.1 fl (80.0-94.0); MEAN CORPUSCULAR HEMOGLOBIN 28.2 pg (27.0-31.0); MEAN CORPUSCULAR HGB CONC 33.5 g/dL (33.0-37.0); RED CELL DISTRIBUTION WIDTH 14.5 % (11.5-14.5); WHITE BLOOD COUNT 4.5 K/uL (4.8-10.8)
[2016-09-02 09:39] LABS: ALKALINE PHOSPHATASE 68 U/L (38-126); ALT/SGPT 74 U/L (21-72); AST/SGOT 63 U/L (17-59); BILIRUBIN,TOTAL 0.6 mg/dl (0.2-1.3); BLOOD UREA NITROGEN 12 mg/dl (9-20); CALCIUM 9.4 mg/dL (8.4-10.2); CARBON DIOXIDE 24 mmol/L (22-30); CHLORIDE 102 mmol/L (98-107); GFR AFRICAN-AMERICAN > 60; GLUCOSE,RANDOM 157 mg/dL (75-110); POTASSIUM 4.2 MMOL/L (3.6-5.0); SODIUM 137 mmol/l (132-148); TOTAL PROTEIN 7.8 G/DL (6.3-8.2)
[2016-09-02] MEDS: Insulin Regular 100 units/ml SC SCH ×4 (09:55→21:59)
[2016-09-02] MEDS: guaiFENesin-DM 600-30 mg ER Tab PO SCH (09:57)
[2016-09-02] MEDS: Enoxaparin 40 mg Syringe SC SCH (09:57)
[2016-09-02] MEDS: Azithromycin 500 MG in Sodium Chloride 0.9% 250 ML IVPB SCH (09:58)
--- NOTE | 2016-09-02 11:53 | CP.PCM.PN ---
Subjective - Date & Time of Evaluation Date of Evaluation: 09/02/16 Time of Evaluation: 11:52 - Subjective Subjective: patient still has cough and not comfortable going home Has no fever in the last 24 hrs. Objective - Vital Signs/Intake and Output Vital Signs (last 24 hours): Temp Pulse Resp BP Pulse Ox 98.3 F 75 20 138/85 96 09/02/16 07:38 09/02/16 09:54 09/02/16 07:38 09/02/16 09:54 09/02/16 07:38 - Medications Medications: Current Medications Acetaminophen (Tylenol 325mg Tab) 650 mg PO Q4 PRN PRN Reason: fever, headache Albuterol/Ipratropium (Duoneb 3 Mg/0.5 Mg (3 Ml) Ud) 3 ml INH RQID [facility] Last Admin: 09/02/16 07:48 Dose: 3 ml Dextrose (Dextrose 50% Inj) 0 ml IVP STAT PRN; Protocol PRN Reason: Hypoglycemia Protocol Enoxaparin Sodium (Lovenox) 40 mg SC DAILY [facility] PRN Reason: Protocol Last Admin: 09/02/16 09:57 Dose: 40 mg Glucagon (Glucagen Diagnostic Kit) 0 mg IM STAT PRN; Protocol PRN Reason: Hypoglycemia Protocol Guaifenesin/Dextromethorphan (Mucinex-Dm 600-30 Mg) 2 tab PO BID [facility] Last Admin: 09/02/16 09:57 Dose: 2 tab Ceftriaxone Sodium 1 gm/ (Sodium Chloride) 100 mls @ 100 mls/hr IVPB DAILY [facility] Last Admin: 09/02/16 09:57 Dose: 100 mls/hr Azithromycin 500 mg/ Sodium (Chloride) 250 mls @ 250 mls/hr IVPB DAILY [facility] Last Admin: 09/02/16 09:58 Dose: 250 mls/hr Insulin Human Regular (Humulin R) 0 units SC ACCU-CHECK [facility] PRN Reason: Protocol Last Admin: 09/02/16 09:55 Dose: 1 u Losartan Potassium (Cozaar) 100 mg PO DAILY [facility] Last Admin: 09/02/16 09:54 Dose: 100 mg Metformin HCl (Glucophage) 500 mg PO DAILY [facility] Last Admin: 09/02/16 10:04 Dose: Not Given - Labs Labs: 09/02/16 08:00 09/02/16 08:00 - Head Exam Head Exam: NORMAL INSPECTION - Eye Exam Eye Exam: Normal appearance - ENT Exam ENT Exam: Mucous Membranes Moist - Respiratory Exam Respiratory Exam: Decreased Breath Sounds, Clear to Ausculation Bilateral - Cardiovascular Exam Cardiovascular Exam: REGULAR RHYTHM - GI/Abdominal Exam GI & Abdominal Exam: Normal Bowel Sounds Assessment and Plan (1) Pneumonia Status: Acute (2) Diabetes mellitus type 2 in obese Status: Acute - Assessment and Plan (Free Text) Plan: cont meds cont tx metfomrin IV antibiotics DCplans.
--- NOTE | 2016-09-02 12:31 | CP.PCM.PN ---
Subjective - Date & Time of Evaluation Date of Evaluation: 09/02/16 Time of Evaluation: 12:27 - Subjective Subjective: Discussed with attending. Vital signs have been stable. Had an episode of dizziness overnight. Labs noted with mild increase in transaminase levels. Observed while asleep and noted to have snoring and apneic episodes even in a lateral position. Had discussion with him regarding his ADRIENNE: he does have nCPAP at home, but it sounds like he uses it only 'at times when I need it'. Advised him of the need for nightly use, every night, that it is not a PRN treatment. He does feel better in general and can still be discharged tomorrow which is the present plan. He will follow up with Dr Joshua as an outpatient. Objective - Vital Signs/Intake and Output Vital Signs (last 24 hours): Temp Pulse Resp BP Pulse Ox 98.3 F 75 20 138/85 96 09/02/16 07:38 09/02/16 09:54 09/02/16 07:38 09/02/16 09:54 09/02/16 07:38 - Medications Medications: Current Medications Acetaminophen (Tylenol 325mg Tab) 650 mg PO Q4 PRN PRN Reason: fever, headache Albuterol/Ipratropium (Duoneb 3 Mg/0.5 Mg (3 Ml) Ud) 3 ml INH RQID [facility] Last Admin: 09/02/16 07:48 Dose: 3 ml Dextrose (Dextrose 50% Inj) 0 ml IVP STAT PRN; Protocol PRN Reason: Hypoglycemia Protocol Enoxaparin Sodium (Lovenox) 40 mg SC DAILY [facility] PRN Reason: Protocol Last Admin: 09/02/16 09:57 Dose: 40 mg Glucagon (Glucagen Diagnostic Kit) 0 mg IM STAT PRN; Protocol PRN Reason: Hypoglycemia Protocol Guaifenesin/Dextromethorphan (Mucinex-Dm 600-30 Mg) 2 tab PO BID [facility] Last Admin: 09/02/16 09:57 Dose: 2 tab Ceftriaxone Sodium 1 gm/ (Sodium Chloride) 100 mls @ 100 mls/hr IVPB DAILY [facility] Last Admin: 09/02/16 09:57 Dose: 100 mls/hr Azithromycin 500 mg/ Sodium (Chloride) 250 mls @ 250 mls/hr IVPB DAILY [facility] Last Admin: 09/02/16 09:58 Dose: 250 mls/hr Insulin Human Regular (Humulin R) 0 units SC ACCU-CHECK [facility] PRN Reason: Protocol Last Admin: 09/02/16 09:55 Dose: 1 u Losartan Potassium (Cozaar) 100 mg PO DAILY [facility] Last Admin: 09/02/16 09:54 Dose: 100 mg Metformin HCl (Glucophage) 500 mg PO DAILY [facility] Last Admin: 09/02/16 10:04 Dose: Not Given - Labs Labs: 09/02/16 08:00 09/02/16 08:00 Assessment and Plan (1) Cough with hemoptysis Status: Acute (2) Pneumonia Status: Acute
[2016-09-03 00:34] VITALS: RESP 20
[2016-09-03] MEDS: Insulin Regular 100 units/ml SC SCH ×2 (06:36→12:44)
[2016-09-03 08:00] VITALS: BP 113/85; PULSE 65; TEMP 98.6; O2SAT 98
[2016-09-03] MEDS: Albuterol-Ipratrop 3 mg / 0.5 (3 ml) UD INH SCH ×2 (09:09→11:35)
[2016-09-03] MEDS: Enoxaparin 40 mg Syringe SC SCH (09:16)
[2016-09-03] MEDS: Azithromycin 500 MG in Sodium Chloride 0.9% 250 ML IVPB SCH (09:22)
--- NOTE | 2016-09-03 12:23 | CP.PCM.DIS ---
Provider - Provider Date of Admission: 08/29/16 15:17 Attending physician: Jorge Alberto Costa MD Time Spent in preparation of Discharge (in minutes): 45 Diagnosis - Discharge Diagnosis (1) Pneumonia Status: Acute (2) Diabetes mellitus type 2 in obese Status: Acute Hospital Course - Lab Results Lab Results: Micro Results 08/31/16 14:00 Sputum Gram Stain - Final 08/31/16 14:00 Sputum Sputum Culture - Final NORMAL ORAL INO 08/30/16 02:50 Sputum Gram Stain - Final 08/30/16 02:50 Sputum Sputum Culture - Final NORMAL ORAL INO 08/31/16 07:53 Urine,Clean Catch Urine Culture - Final No Growth (<1,000 CFU/ML) Most Recent Lab Values WBC 4.5 K/uL (4.8-10.8) L 09/02/16 08:00 RBC 4.86 Mil/uL (4.40-5.90) 09/02/16 08:00 Hgb 13.7 g/dL (12.0-18.0) 09/02/16 08:00 Hct 40.9 % (35.0-51.0) 09/02/16 08:00 MCV 84.1 fl (80.0-94.0) 09/02/16 08:00 MCH 28.2 pg (27.0-31.0) 09/02/16 08:00 MCHC 33.5 g/dL (33.0-37.0) 09/02/16 08:00 RDW 14.5 % (11.5-14.5) 09/02/16 08:00 Plt Count 277 K/uL (130-400) 09/02/16 08:00 MPV 8.6 fl (7.2-11.7) 08/29/16 00:50 Neut % (Auto) 78.3 % (50.0-75.0) H 08/29/16 00:50 Lymph % (Auto) 11.5 % (20.0-40.0) L 08/29/16 00:50 [place] % (Auto) 10.1 % (0.0-10.0) H 08/29/16 00:50 Eos % (Auto) 0.0 % (0.0-4.0) 08/29/16 00:50 Baso % (Auto) 0.1 % (0.0-2.0) 08/29/16 00:50 Neut # 5.3 K/uL (1.8-7.0) 08/29/16 00:50 Lymph # 0.8 K/uL (1.0-4.3) L 08/29/16 00:50 [place] # 0.7 K/uL (0.0-0.8) 08/29/16 00:50 Eos # 0.0 K/uL (0.0-0.7) 08/29/16 00:50 Baso # 0.0 K/uL (0.0-0.2) 08/29/16 00:50 pO2 53 mm/Hg (30-55) 08/29/16 00:57 VBG pH 7.43 (7.32-7.43) 08/29/16 00:57 VBG pCO2 36 mmHg (40-60) L 08/29/16 00:57 VBG HCO3 24.6 mmol/L 08/29/16 00:57 VBG Total CO2 25.0 mmol/L (22-28) 08/29/16 00:57 VBG O2 Sat (Calc) 93.5 % (40-65) H 08/29/16 00:57 VBG Base Excess -0.1 mmol/L (0.0-2.0) L 08/29/16 00:57 VBG Potassium 3.8 mmol/L (3.6-5.2) 08/29/16 00:57 Sodium 133.0 mmol/L (132-148) 08/29/16 00:57 Chloride 104.0 mmol/L (98-107) 08/29/16 00:57 Glucose 209 mg/dL (75-110) H 08/29/16 00:57 Lactate 2.1 mmol/L (0.7-2.1) 08/29/16 00:57 FiO2 21.0 % 08/29/16 00:57 Crit Value Called To pablo Kamara md 08/29/16 00:57 Crit Value Called By Roni 08/29/16 00:57 Crit Value Read Back Y 08/29/16 00:57 Blood Gas Notified Time 105 08/29/16 00:57 Sodium 137 mmol/l (132-148) 09/02/16 08:00 Potassium 4.2 MMOL/L (3.6-5.0) 09/02/16 08:00 Chloride 102 mmol/L (98-107) 09/02/16 08:00 Carbon Dioxide 24 mmol/L (22-30) 09/02/16 08:00 Anion Gap 15 (10-20) 09/02/16 08:00 BUN 12 mg/dl (9-20) 09/02/16 08:00 Creatinine 0.9 mg/dL (0.8-1.5) 09/02/16 08:00 Est GFR ( Amer) > 60 09/02/16 08:00 Est GFR (Non-Af Amer) > 60 09/02/16 08:00 POC Glucose (mg/dL) 167 mg/dL (65-110) H 09/03/16 10:40 Random Glucose 157 mg/dL (75-110) H 09/02/16 08:00 Calcium 9.4 mg/dL (8.4-10.2) 09/02/16 08:00 Total Bilirubin 0.6 mg/dl (0.2-1.3) 09/02/16 08:00 AST 63 U/L (17-59) H D 09/02/16 08:00 ALT 74 U/L (21-72) H D 09/02/16 08:00 Alkaline Phosphatase 68 U/L (38-126) 09/02/16 08:00 Total Protein 7.8 G/DL (6.3-8.2) 09/02/16 08:00 Albumin 4.0 g/dL (3.5-5.0) 09/02/16 08:00 Globulin 3.8 gm/dL (2.2-3.9) 09/02/16 08:00 Albumin/Globulin Ratio 1.0 (1.0-2.1) 09/02/16 08:00 Venous Blood Potassium 3.8 mmol/L (3.6-5.2) 08/29/16 00:57 Urine Color Yellow (YELLOW) 08/31/16 02:15 Urine Clarity Clear (Clear) 08/31/16 02:15 Urine pH 6.0 (5.0-8.0) 08/31/16 02:15 Ur Specific [place] 1.017 (1.003-1.030) 08/31/16 02:15 Urine Protein 30 mg/dL (NEGATIVE) 08/31/16 02:15 Urine Glucose (UA) Neg mg/dL (Normal) 08/31/16 02:15 Urine Ketones Negative mg/dL (NEGATIVE) 08/31/16 02:15 Urine Blood Negative (NEGATIVE) 08/31/16 02:15 Urine Nitrate Negative (NEGATIVE) 08/31/16 02:15 Urine Bilirubin Negative (NEGATIVE) 08/31/16 02:15 Urine Urobilinogen 0.2-1.0 mg/dL (0.2-1.0) 08/31/16 02:15 Ur Leukocyte Esterase Neg [place]/uL (Negative) 08/31/16 02:15 Urine RBC (Auto) 2 /hpf (0-3) 08/31/16 02:15 Urine Microscopic WBC 1 /hpf (0-5) 08/31/16 02:15 Ur Squamous Epith Cells < 1 /hpf (0-5) 08/31/16 02:15 - Hospital Course Hospital Course: This is a 51 y/o male with hx of DM 2 was seen at the ER [facility] and was noted to have pnemonia. He was sent home on po meds but sx worsen hence seen at [place] ER and admitted. Has hx of DM 2 , obesity/. He was started on IV antibioics and responded well, CT scam showed a large left lower pneumonia. He was sent home on po antibiotics and was advised follow up CXR in 1 to 2 weeks and follow up with PMD. Discharge Exam - Head Exam Head Exam: NORMAL INSPECTION - Eye Exam Eye Exam: Normal appearance - Respiratory Exam Respiratory Exam: NORMAL BREATHING PATTERN - Cardiovascular Exam Cardiovascular Exam: REGULAR RHYTHM - GI/Abdominal Exam GI & Abdominal Exam: Normal Bowel Sounds - Neurological Exam Neurological exam: CN II-XII Intact, Oriented x3, Reflexes Normal Discharge Plan - Follow Up Plan Condition: FAIR Disposition: HOME/ ROUTINE Additional Instructions: Rx given follow CXR in 1 to 2 weeks.
== END 2016-09-03 13:49 | disposition home or self-care (01) | DRG 90 ==
LOC: H.ER 23:39 → H.ERHOLD 08-29 01:08 → H.MEDSURG1 08-29 04:22 → OBSVTOIN 08-29 15:17
PROVIDERS: ADMIT Family Medicine; ATTEND Family Medicine
PROC: 3E0F73Z Introduction of Anti-inflammatory into Respiratory Tract, Via Natural or Artificial Opening (ICD-10-PCS; principal; 2016-08-29)
DX: J18.9 Pneumonia, unspecified organism (principal); R04.2 Hemoptysis; Z68.41 Body mass index [BMI] 40.0-44.9, adult; I10 Essential (primary) hypertension; E66.01 Morbid (severe) obesity due to excess calories; E11.9 Type 2 diabetes mellitus without complications; G47.33 Obstructive sleep apnea (adult) (pediatric); J45.909 Unspecified asthma, uncomplicated; L40.8 Other psoriasis; Z87.891 Personal history of nicotine dependence

== ENCOUNTER 2017-07-19 19:39 | Emergency (ER) | payer MEDICAID ==
[2017-07-19 19:45] VITALS: BMI 51.1
--- NOTE | 2017-07-19 21:23 | ED PDOC ---
HPI: Headache Time Seen by Provider: 07/19/17 19:56 Chief Complaint (Nursing): Headache Chief Complaint (Provider): Headache History Per: Patient History/Exam Limitations: no limitations Additional Complaint(s): 52 y/o male presents to the ED complaining of headache, cough and fever (101.3) since this morning. States that he feels like his eyes are bulging out of his head. Also states that this is the worst headache of his life. Reports taking Motrin at 10am. Denies any further medical complaints. Past Medical History Reviewed: Historical Data, Nursing Documentation, Vital Signs Vital Signs: Last Vital Signs Temp 100.2 F H 07/19/17 19:43 Pulse 123 H 07/19/17 19:43 Resp 16 07/19/17 19:43 BP 140/94 H 07/19/17 19:43 Pulse Ox 93 L 07/19/17 19:43 - Medical History PMH: Asthma, Diabetes, HTN, Sleep Apnea Denies: Chronic Kidney Disease - Surgical History Surgical History: No Surg Hx - Family History Family History: States: Unknown Family Hx - Social History Current smoker - smoking cessation education provided: No Alcohol: Other (Yes) Drugs: Denies - Immunization History Hx Tetanus Toxoid Vaccination: Yes Hx Influenza Vaccination: Yes Hx Pneumococcal Vaccination: Yes - Home Medications Home Medications: Ambulatory Orders Medication Instructions Recorded Metoprolol Succinate [Toprol XL] 100 mg PO DAILY #30 09/03/16 metFORMIN [glucOPHAGE] 500 mg PO BID #120 tab 09/03/16 Ibuprofen [Motrin] 600 mg PO Q6 07/18/17 Meclizine [Meclizine*] 25 mg PO Q6 #30 tab 07/18/17 Oseltamivir [Tamiflu] 75 mg PO BID #10 cap 07/19/17 - Allergies Allergies/Adverse Reactions: Allergies Allergy/AdvReac Type Severity Reaction Status Date / Time No Known Allergies Allergy Verified 07/18/17 11:44 Review of Systems ROS Statement: Except As Marked, All Systems Reviewed And Found Negative (As per HPI, otherwise negative) Constitutional: Positive for: Fever Respiratory: Positive for: Cough Neurological: Positive for: Headache Physical Exam - Reviewed Nursing Documentation Reviewed: Yes Vital Signs Reviewed: Yes - Physical Exam Appears: Positive for: Non-toxic, No Acute Distress Head Exam: Positive for: ATRAUMATIC, NORMAL INSPECTION, NORMOCEPHALIC Skin: Positive for: Normal Color, Warm, Dry Eye Exam: Positive for: Normal appearance ENT: Positive for: Normal ENT Inspection Neck: Positive for: Normal Cardiovascular/Chest: Positive for: Regular Rate, Rhythm. Negative for: Murmur Respiratory: Positive for: Normal Breath Sounds. Negative for: Accessory Muscle Use, Respiratory Distress Gastrointestinal/Abdominal: Positive for: Normal Exam Back: Positive for: Normal Inspection Extremity: Positive for: Normal ROM. Negative for: Deformity Neurologic/Psych: Positive for: Alert, Oriented - ECG O2 Sat by Pulse Oximetry: 93 (RA) Pulse Ox Interpretation: Normal Medical Decision Making Medical Decision Making: Time: 20:43 Plan: CT head w/o contrast Acetaminophen 975mg PO Ibuprofen 600mg PO Influenza A B Reevaluation Head CT normal. (+) influenza A Scribe Attestation: Documented by Rossana Leach acting as a scribe for RIKI Montes. Scribe Attestation: All medical record entries made by the Scribe were at my direction and personally dictated by me. I have reviewed the chart and agree that the record accurately reflects my personal performance of the history, physical exam, medical decision making, and the department course for this patient. I have also personally Disposition - Clinical Impression Clinical Impression: Influenza A - Patient ED Disposition Is Patient to be Admitted: No - Disposition Referrals: Provider TBSherry, [Primary Care Provider] - Disposition: Routine/Home Disposition Time: 22:38 Condition: GOOD Prescriptions: Oseltamivir [Tamiflu] 75 mg PO BID #10 cap Instructions: Flu, Adult (DC) Forms: [employer] ([place]ombian)
--- NOTE | 2017-07-19 21:37 | CT ---
EXAM: CT Head Without Intravenous Contrast CLINICAL HISTORY: 52 years old, male; Pain; Headache; Headache not specified TECHNIQUE: Axial computed tomography images of the head/brain without intravenous contrast. All CT scans at this facility use one or more dose reduction techniques, viz.: automated exposure control; ma/kV adjustment per patient size (including targeted exams where dose is matched to indication; i.e. head); or iterative reconstruction technique. Coronal and sagittal reformatted images were created and reviewed. COMPARISON: No relevant prior studies available. FINDINGS: Artifacts: Motion artifact. Brain: Unremarkable. No significant white matter disease. No edema. No intracranial mass, mass effect, or midline shift. Ventricles: Unremarkable. No ventriculomegaly. Bones/joints: Unremarkable. No acute fracture. Soft tissues: Unremarkable. Sinuses: Unremarkable as visualized. No acute sinusitis. Mastoid air cells: Unremarkable as visualized. No mastoid effusion. IMPRESSION: No acute intracranial abnormality.
[2017-07-19 23:16] VITALS: BP 119/70; PULSE 99; RESP 18; TEMP 98.7; O2SAT 95
== END 2017-07-19 23:21 | disposition home or self-care (01) ==
LOC: H.ER 19:39 → SUPCPDRO 19:39 → H.ER 23:21
DX: J09.X2 Influenza due to identified novel influenza A virus with other respiratory manifestations (principal); E11.9 Type 2 diabetes mellitus without complications; I10 Essential (primary) hypertension; J45.909 Unspecified asthma, uncomplicated; Z79.84 Long term (current) use of oral hypoglycemic drugs

== ENCOUNTER 2018-02-12 00:33 | Inpatient (IN) | payer MEDICAID ==
[2018-02-12 00:33] VITALS: BMI 51.1
[2018-02-12 01:39] LABS: BASO % 0.9 % (0.0-2.0); EOS # 0.1 K/uL (0.0-0.7); EOS % 2.4 % (0.0-4.0); HEMOGLOBIN 14.2 g/dL (12.0-18.0); LYMPH # 1.5 K/uL (1.0-4.3); MEAN CELL VOLUME 86.4 fl (80.0-94.0); MEAN CORPUSCULAR HEMOGLOBIN 27.6 pg (27.0-31.0); MEAN PLATELET VOLUME 8.6 fl (7.2-11.7); MONO # 0.4 K/uL (0.0-0.8); MONO % 9.7 % (0.0-10.0); NEUT # 2.3 K/uL (1.8-7.0); RBC 5.12 Mil/uL (4.40-5.90); RED CELL DISTRIBUTION WIDTH 14.3 % (11.5-14.5); WHITE BLOOD COUNT 4.4 K/uL (4.8-10.8)
--- NOTE | 2018-02-12 01:48 | ED PDOC ---
HPI: Abdomen Time Seen by Provider: 02/12/18 00:49 Chief Complaint (Nursing): Abdominal Pain Chief Complaint (Provider): Abdominal Pain History Per: Patient History/Exam Limitations: no limitations Onset/Duration Of Symptoms: Days (x7) Location Of Pain/Discomfort: Diffuse Associated Symptoms: denies: Fever, Vomiting, Diarrhea Additional Complaint(s): 52 years old male with history of diabetes, sleep apnea and hypertension presents to ER for evaluation of abdominal pain and bloating for 1 week. Patient was here on 02/04 and had colonoscopy on 02/06. He states the abdominal pain has increased with increasing nausea and bloating. Patient reports his last bowel movement was small and hard but is passing gas. He denies fever, vomiting, and diarrhea. dr bone sent him here for barium swallow test. PMD: Jamir Bone Past Medical History Reviewed: Historical Data, Nursing Documentation, Vital Signs Vital Signs: Last Vital Signs Temp 97.9 F 02/12/18 00:40 Pulse 56 L 02/12/18 00:40 Resp 16 02/12/18 00:40 BP 176/106 H 02/12/18 00:40 Pulse Ox 97 02/12/18 00:40 - Medical History PMH: Asthma, Diabetes, HTN, Sleep Apnea Denies: Chronic Kidney Disease - Surgical History Other surgeries: Colonoscopy - Family History Family History: States: Unknown Family Hx - Social History Current smoker - smoking cessation education provided: No Alcohol: None Drugs: Denies - Immunization History Hx Tetanus Toxoid Vaccination: Yes Hx Influenza Vaccination: Yes Hx Pneumococcal Vaccination: Yes - Home Medications Home Medications: Ambulatory Orders Medication Instructions Recorded RX: Metoprolol Succinate XL 100 mg PO DAILY #30 09/03/16 [Toprol XL] RX: metFORMIN [glucOPHAGE] 500 mg PO BID #120 tab 09/03/16 RX: Meclizine [Meclizine*] 25 mg PO Q6 #30 tab 07/18/17 RX: Albuterol HFA [Ventolin HFA 90 1 puff IH BID PRN #1 unit 07/19/17 mcg/actuation (8 g)] Docusate [Colace] 100 mg PO BID PRN #20 cap 02/05/18 Polyethylene Glycol 3350 [Miralax] 17 g PO QAM PRN #7 pkg 02/05/18 - Allergies Allergies/Adverse Reactions: Allergies Allergy/AdvReac Type Severity Reaction Status Date / Time No Known Allergies Allergy Verified 07/18/17 11:44 Review of Systems ROS Statement: Except As Marked, All Systems Reviewed And Found Negative Constitutional: Negative for: Fever Gastrointestinal: Positive for: Nausea, Abdominal Pain. Negative for: Vomiting, Diarrhea Physical Exam - Reviewed Nursing Documentation Reviewed: Yes Vital Signs Reviewed: Yes - Physical Exam Appears: Positive for: Non-toxic, No Acute Distress Head Exam: Positive for: ATRAUMATIC, NORMOCEPHALIC Skin: Positive for: Normal Color, Warm, Dry Eye Exam: Positive for: Normal appearance ENT: Positive for: Normal ENT Inspection Neck: Positive for: Normal Cardiovascular/Chest: Positive for: Regular Rate, Rhythm. Negative for: Murmur Respiratory: Positive for: Normal Breath Sounds. Negative for: Wheezing Gastrointestinal/Abdominal: Positive for: Normal Exam, Soft, Other (Diffused abdominal discomfort). Negative for: Tenderness Back: Positive for: Normal Inspection. Negative for: L CVA Tenderness, R CVA Tenderness Extremity: Positive for: Normal ROM. Negative for: Pedal Edema, Swelling Neurologic/Psych: Positive for: Alert, Oriented (x3) - Laboratory Results Result Diagrams: 02/12/18 01:31 02/12/18 01:31 - ECG O2 Sat by Pulse Oximetry: 97 (RA) Pulse Ox Interpretation: Normal Medical Decision Making Medical Decision Making: Time: 107 Initial Plan: abdominal pain, possible stricture vs neoplasm - here for admission/workup --Labs --Pepcid 20 mg IVP --Zofran 4 mg IV pt has more pain, given morphine 230 pts pcp josé miguel, covered by armida, spoke w dr cook who accepted patient placed consult for dr bone as well pt aware and agreeable Scribe Attestation: Documented by Farrah Joshi, acting as a scribe for Thomas MD. Provider Scribe Attestation: All medical record entries made by the Scribe were at my direction and personally dictated by me. I have reviewed the chart and agree that the record accurately reflects my personal performance of the history, physical exam, medical decision making, and the department course for this patient. I have also personally directed, reviewed, and agree with the discharge instructions and disposition. Disposition - Clinical Impression Clinical Impression: Abdominal pain, Partial small bowel obstruction - Patient ED Disposition Is Patient to be Admitted: Yes Counseled Patient/Family Regarding: Studies Performed, Diagnosis - Disposition Disposition Time: 03:40 Condition: IMPROVED
[2018-02-12 01:49] LABS: ALB/GLOB RATIO 1.2 (1.0-2.1); ALBUMIN 4.3 g/dL (3.5-5.0); ALT/SGPT 41 U/L (21-72); AST/SGOT 27 U/L (17-59); BLOOD UREA NITROGEN 19 mg/dl (9-20); CALCIUM 9.6 mg/dL (8.4-10.2); GFR NON-AFRICAN AMERICAN 53; LIPASE 221 U/L (23-300)
[2018-02-12] MEDS ORDERED: Morphine 4 MG/ML VIAL IV ONE (03:14)
[2018-02-12] MEDS ORDERED: Morphine 4 MG/ML VIAL ONE (03:18)
[2018-02-12 03:33] LABS: SQUAMOUS EPITHIAL < 1 /hpf (0-5); URINE BILIRUBIN NEGATIVE (NEGATIVE); URINE BLOOD MODERATE (NEGATIVE); URINE CLARITY CLEAR (Clear); URINE COLOR YELLOW (YELLOW); URINE GLUCOSE (UA) NEG (Normal); URINE LEUKOCYTE ESTERASE NEG Leu/uL (Negative); URINE PROTEIN NEGATIVE (NEGATIVE); URINE UROBILINOGEN 0.2-1.0 mg/dL (0.2-1.0)
[2018-02-12] MEDS ORDERED: POLYETHYLENE GLYCOL 3350 17 GM/Dose PACKET PO PRN (06:14)
[2018-02-12] MEDS ORDERED: Albuterol HFA 90 mcg/actuation (8 g) IH PRN (06:14)
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
[2018-02-12] MEDS ORDERED: Pneumococcal 23-Valent Vaccine IM ONE (09:00)
[2018-02-12] MEDS ORDERED: Influenza Vaccine (5 YR UP)/PF 60 MCG/0.5 ML SYR IM ONE (09:00)
[2018-02-12] MEDS: Metoprolol Succinate 100 mg XL Tab PO SCH (09:10)
[2018-02-12] MEDS ORDERED: Barium Sulfate Susp 2.1% w/v, 2.0% w/w 450 mL Bottle PO ONE ×3 (09:12→09:15)
[2018-02-12] MEDS ORDERED: Barium Sulfate for Susp 96% w/w 176g Bottle PR ONE (10:14)
[2018-02-12] MEDS ORDERED: Barium Sulfate Susp 105% w/v, 58% w/w 1900 ml Bottle PO ONE (12:00)
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
[2018-02-12] MEDS: Enoxaparin 40 mg Syringe SC SCH (14:05)
--- NOTE | 2018-02-12 14:09 | RAD ---
Date of service: 02/12/2018 HISTORY: dr arias COMPARISON: CT abdomen and pelvis from 02/04/2018. FINDINGS: BOWEL: There is large amount of stool in the ascending colon. There is moderate gaseous distension of the transverse and left hemicolon. There is small amount of stool in the rectum. BONES: Normal. OTHER FINDINGS: None. IMPRESSION: Fecal impaction in the ascending colon and moderate gaseous distension of the transverse colon and left hemicolon.
[2018-02-12] MEDS: Lactulose 10 gm/15 ml Syrup PO SCH ×2 (16:53→21:30)
[2018-02-12] MEDS: Sodium Chloride 0.45% 1,000 ML IV SCH ×2 (16:54→21:30)
[2018-02-13] MEDS: Lactulose 10 gm/15 ml Syrup PO SCH ×6 (02:37→21:22)
[2018-02-13] MEDS: Metoprolol Succinate 100 mg XL Tab PO SCH (09:06)
[2018-02-13] MEDS: Enoxaparin 40 mg Syringe SC SCH (09:07)
--- NOTE | 2018-02-13 15:18 | RAD ---
Date of service: 02/13/2018 PROCEDURE: Radiographs of the chest and abdomen (obstructive series) HISTORY: constipation COMPARISON: Comparison made with prior abdominal radiograph 02/12/[address] scan 02/04/2018. TECHNIQUE: AP radiograph of the chest, with upright and supine radiographs of the abdomen. FINDINGS: CHEST: Lungs: Suspect minor bibasilar atelectasis. Cardiovascular: Normal size heart. No pulmonary vascular congestion.. Minor aortic atherosclerotic calcified plaque Pleura: No pleural fluid. No pneumothorax. Other findings: None. ABDOMEN AND PELVIS: Redemonstrated is moderate to significantly distended air-filled colon.. Please refer to prior CT scan for additional details regarding apparent narrowing of the descending/sigmoid colon junction. No evidence of free intraperitoneal air. IMPRESSION: Minor bibasilar atelectasis. Moderate to fairly significantly distended air-filled colon. See above discussion for additional details
--- NOTE | 2018-02-13 17:48 | CP.PCM.PN ---
<Henrique De León - Last Filed: 02/13/18 17:46> Subjective - Date & Time of Evaluation Date of Evaluation: 02/13/18 Time of Evaluation: 11:50 - Subjective Subjective: 53 y/o M was seen and examined by bedside with Dr Costa. Pt complains of diffuse abdominal pain and distension, pt reports he had a small bowel movement this morning. Pt reports mild nausea but no vomiting. Pt afebrile, tolerating PO, with NO acute events overnight. Objective - Vital Signs/Intake and Output Vital Signs (last 24 hours): Temp Pulse Resp BP Pulse Ox 98.6 F 57 L 20 144/83 93 L 02/13/18 16:37 02/13/18 16:37 02/13/18 16:37 02/13/18 16:37 02/13/18 16:37 - Medications Medications: Current Medications Albuterol (Ventolin Hfa 90 Mcg/Actuation (8 G)) 1 puff IH BID PRN PRN Reason: cough, sob Docusate Sodium (Colace) 100 mg PO BID PRN PRN Reason: Constipation Enoxaparin Sodium (Lovenox) 40 mg SC DAILY [facility]; Protocol Last Admin: 02/13/18 09:07 Dose: 40 mg Lactulose (Enulose) 10 gm PO Q4 [facility] Last Admin: 02/13/18 17:06 Dose: 10 gm Meclizine HCl (Antivert) 25 mg PO Q6 [facility] Last Admin: 02/13/18 17:06 Dose: 25 mg Metoprolol Succinate (Toprol Xl) 100 mg PO DAILY [facility] Last Admin: 02/13/18 09:06 Dose: Not Given Ondansetron HCl (Zofran Inj) 4 mg IVP Q6 PRN PRN Reason: Nausea/Vomiting Last Admin: 02/13/18 17:06 Dose: 4 mg Pantoprazole Sodium (Protonix Inj) 40 mg IVP DAILY [facility] Last Admin: 02/13/18 09:08 Dose: 40 mg Polyethylene Glycol (Miralax) 17 gm PO QAM PRN PRN Reason: Constipation Last Admin: 02/13/18 09:14 Dose: 17 gm - Labs Labs: 02/12/18 01:31 02/12/18 01:31 - Additional Findings Additional findings: - Constitutional Appears: No Acute Distress - Head Exam Head Exam: ATRAUMATIC, NORMAL INSPECTION - Eye Exam Eye Exam: EOMI, Normal appearance - ENT Exam ENT Exam: absent: Mucous Membranes Dry - Neck Exam Neck exam: Positive for: Full Rom, Normal Inspection - Respiratory Exam Respiratory Exam: NORMAL BREATHING PATTERN. absent: Rales, Rhonchi, Wheezes - Cardiovascular Exam Cardiovascular Exam: REGULAR RHYTHM, +S1 - GI/Abdominal Exam GI & Abdominal Exam: Distended, Soft, Tenderness (mostly on LLQ). absent: Guarding Additional comments: Presence of scattered psoriatic lesion covering all abdomen. - Back Exam Back exam: absent: CVA tenderness (L), CVA tenderness (R) Assessment and Plan - Assessment and Plan (Free Text) Assessment: 51 y/o M with a PMHx asthma, DM, HTN, ADRIENNE and psoriasis admitted for abdominal pain and distension. PLAN: --Stable --Abdominal pain most probably due to constipation --Lactulose Q4H --Enema per rectum --GI on board, Dr Johnson --Barium Enema was cancelled --Zofran , Pantoprazole and IV fluids --Home medications resumed. --Continue management as ordered. Case discussed with Dr Julissa Morel, PGY-2 <Jorge Alberto Costa - Last Filed: 02/18/18 01:46> Objective - Vital Signs/Intake and Output Vital Signs (last 24 hours): Temp Pulse Resp BP Pulse Ox 97.6 F 94 H 18 126/86 91 L 02/17/18 17:00 02/17/18 17:00 02/17/18 17:00 02/17/18 17:00 02/17/18 17:00 Intake and Output: 02/17/18 02/18/18 18:59 06:59 Output Total 1000 1650 Balance -1000 -1650 - Medications Medications: Current Medications Albuterol (Ventolin Hfa 90 Mcg/Actuation (8 G)) 1 puff IH BID PRN PRN Reason: cough, sob Docusate Sodium (Colace) 100 mg PO BID PRN PRN Reason: Constipation Last Admin: 02/14/18 16:23 Dose: 100 mg Lactated Ringer's (Lactated Ringer's) 1,000 mls @ 120 mls/hr IV .Q8H20M CHUN Last Admin: 02/17/18 22:01 Dose: 120 mls/hr Ketorolac Tromethamine (Toradol) 30 mg IVP Q6 PRN PRN Reason: Pain, moderate (4-7) Last Admin: 02/17/18 06:42 Dose: 30 mg Lactulose (Enulose) 10 gm PO Q6 PRN PRN Reason: Constipation Metoprolol Succinate (Toprol Xl) 100 mg PO DAILY [facility] Last Admin: 02/17/18 09:48 Dose: Not Given Ondansetron HCl (Zofran Inj) 4 mg IVP Q4 PRN PRN Reason: Nausea/Vomiting Last Admin: 02/17/18 06:19 Dose: 4 mg Pantoprazole Sodium (Protonix Inj) 40 mg IVP DAILY [facility] Last Admin: 02/17/18 08:24 Dose: 40 mg Polyethylene Glycol (Miralax) 17 gm PO QAM PRN PRN Reason: Constipation Last Admin: 02/13/18 09:14 Dose: 17 gm - Labs Labs: 02/16/18 05:30 02/16/18 05:30 Assessment and Plan - Assessment and Plan (Free Text) Plan: I was present during evaluation and discussed with DR De León re plans of care and mgt. Jorge Alberto Costa M.D.
--- NOTE | 2018-02-13 18:01 | CP.PCM.PN ---
Subjective - Date & Time of Evaluation Date of Evaluation: 02/13/18 Time of Evaluation: 17:51 - Subjective Subjective: Patient remains with abdominal pain and distention. Minimal BMs. Objective - Vital Signs/Intake and Output Vital Signs (last 24 hours): Temp Pulse Resp BP Pulse Ox 98.6 F 57 L 20 144/83 93 L 02/13/18 16:37 02/13/18 16:37 02/13/18 16:37 02/13/18 16:37 02/13/18 16:37 - Medications Medications: Current Medications Albuterol (Ventolin Hfa 90 Mcg/Actuation (8 G)) 1 puff IH BID PRN PRN Reason: cough, sob Docusate Sodium (Colace) 100 mg PO BID PRN PRN Reason: Constipation Enoxaparin Sodium (Lovenox) 40 mg SC DAILY [facility]; Protocol Last Admin: 02/13/18 09:07 Dose: 40 mg Lactulose (Enulose) 10 gm PO Q4 [facility] Last Admin: 02/13/18 17:06 Dose: 10 gm Meclizine HCl (Antivert) 25 mg PO Q6 [facility] Last Admin: 02/13/18 17:06 Dose: 25 mg Metoprolol Succinate (Toprol Xl) 100 mg PO DAILY [facility] Last Admin: 02/13/18 09:06 Dose: Not Given Ondansetron HCl (Zofran Inj) 4 mg IVP Q6 PRN PRN Reason: Nausea/Vomiting Last Admin: 02/13/18 17:06 Dose: 4 mg Pantoprazole Sodium (Protonix Inj) 40 mg IVP DAILY [facility] Last Admin: 02/13/18 09:08 Dose: 40 mg Polyethylene Glycol (Miralax) 17 gm PO QAM PRN PRN Reason: Constipation Last Admin: 02/13/18 09:14 Dose: 17 gm - Labs Labs: 02/12/18 01:31 02/12/18 01:31 - Head Exam Head Exam: ATRAUMATIC - Eye Exam Eye Exam: Normal appearance - ENT Exam ENT Exam: Mucous Membranes Moist - Neck Exam Neck Exam: Full ROM - Respiratory Exam Respiratory Exam: NORMAL BREATHING PATTERN - Cardiovascular Exam Cardiovascular Exam: REGULAR RHYTHM, +S1, +S2 - GI/Abdominal Exam GI & Abdominal Exam: Distended, Tenderness Assessment and Plan - Assessment and Plan (Free Text) Assessment: Ongoing abdominal distention. Will discuss with radiology tomorrow posssible unprepped BE. Toradol given for pain.
[2018-02-13] MEDS: Dextrose 5%/Lactated Ringer's 1,000 ML IV SCH (22:20)
[2018-02-14] MEDS: Lactulose 10 gm/15 ml Syrup PO SCH ×6 (01:00→22:05)
[2018-02-14 06:39] LABS: HEMOGLOBIN 14.2 g/dL (12.0-18.0); MEAN CORPUSCULAR HEMOGLOBIN 28.4 pg (27.0-31.0); RBC 4.99 Mil/uL (4.40-5.90); RED CELL DISTRIBUTION WIDTH 13.9 % (11.5-14.5); WHITE BLOOD COUNT 3.5 K/uL (4.8-10.8)
[2018-02-14 06:56] LABS: ALB/GLOB RATIO 1.2 (1.0-2.1); ALBUMIN 3.8 g/dL (3.5-5.0); ALT/SGPT 37 U/L (21-72); AST/SGOT 21 U/L (17-59); BLOOD UREA NITROGEN 10 mg/dl (9-20); CALCIUM 8.9 mg/dL (8.4-10.2); GFR NON-AFRICAN AMERICAN > 60
[2018-02-14] MEDS: Metoprolol Succinate 100 mg XL Tab PO SCH (09:05)
--- NOTE | 2018-02-14 10:07 | CP.PCM.PN ---
Subjective - Date & Time of Evaluation Date of Evaluation: 02/14/18 Time of Evaluation: 10:05 - Subjective Subjective: GI note for Dr. Johnson 52M seen and examined at bedside. Patient states pain is improving, admits to flatus and admits to BMs. Abdomen is distended however. Objective - Vital Signs/Intake and Output Vital Signs (last 24 hours): Temp Pulse Resp BP Pulse Ox 97.9 F 59 L 20 142/97 H 95 02/14/18 08:34 02/14/18 09:05 02/14/18 08:34 02/14/18 08:34 02/14/18 08:34 - Medications Medications: Current Medications Albuterol (Ventolin Hfa 90 Mcg/Actuation (8 G)) 1 puff IH BID PRN PRN Reason: cough, sob Docusate Sodium (Colace) 100 mg PO BID PRN PRN Reason: Constipation Enoxaparin Sodium (Lovenox) 40 mg SC DAILY [facility]; Protocol Last Admin: 02/13/18 09:07 Dose: 40 mg Dextrose/Lactated Ringer's (Dextrose 5%/Lactated Ringer's) 1,000 mls @ 80 mls/hr IV .[id number] [facility] Stop: 02/14/18 22:16 Last Admin: 02/13/18 22:20 Dose: 80 mls/hr Lactulose (Enulose) 10 gm PO Q4 [facility] Last Admin: 02/14/18 05:00 Dose: Not Given Meclizine HCl (Antivert) 25 mg PO Q6 [facility] Last Admin: 02/14/18 04:39 Dose: Not Given Metoprolol Succinate (Toprol Xl) 100 mg PO DAILY [facility] Last Admin: 02/14/18 09:05 Dose: Not Given Ondansetron HCl (Zofran Inj) 4 mg IVP Q6 PRN PRN Reason: Nausea/Vomiting Last Admin: 02/13/18 17:06 Dose: 4 mg Pantoprazole Sodium (Protonix Inj) 40 mg IVP DAILY [facility] Last Admin: 02/14/18 09:45 Dose: 40 mg Polyethylene Glycol (Miralax) 17 gm PO QAM PRN PRN Reason: Constipation Last Admin: 02/13/18 09:14 Dose: 17 gm - Labs Labs: 02/14/18 05:40 02/14/18 05:40 - Constitutional Appears: Non-toxic, No Acute Distress - Respiratory Exam Respiratory Exam: Clear to Ausculation Bilateral, NORMAL BREATHING PATTERN - Cardiovascular Exam Cardiovascular Exam: REGULAR RHYTHM, +S1, +S2 - GI/Abdominal Exam GI & Abdominal Exam: Distended, Soft. absent: Firm, Guarding, Rigid, Tenderness, Rebound Assessment and Plan - Assessment and Plan (Free Text) Assessment: 52M with abdominal distention 2/2 colonic source Plan: - plan for CT enterograpy to evaluate colon for sign of obstruction Discussed with Dr. Elizabeth Armendariz, PGY3
[2018-02-14] MEDS ORDERED: Barium Sulfate Susp 0.1% w/v, 0.1% w/w 450 mL Bottle PO STA ×3 (11:05→12:52)
[2018-02-14] MEDS ORDERED: Barium Sulfate Susp 0.1% w/v, 0.1% w/w 450 mL Bottle PO ONE ×2 (12:15)
[2018-02-14] MEDS: Dextrose 5%/Lactated Ringer's 1,000 ML IV SCH (13:51)
[2018-02-14] MEDS: Enoxaparin 40 mg Syringe SC SCH (13:53)
[2018-02-14] MEDS ORDERED: Iodixanol 320 MG/ML 100 ML BOTTLE IV ONE (14:28)
[2018-02-14] MEDS ORDERED: Sodium Chloride 0.9% 50 ML IV ONE (14:28)
--- NOTE | 2018-02-14 15:52 | CT ---
Date of service: 02/14/2018 PROCEDURE: CT Abdomen and Pelvis with contrast HISTORY: evaluate for obstruction COMPARISON: None. TECHNIQUE: The examination is reportedly performed following the oral administration of 1350 mL of Volumen. Contrast dose: 99 cc Visipaque 320 Radiation dose: Total exam DLP = 1004.09 mGy-cm. This CT exam was performed using one or more of the following dose reduction techniques: Automated exposure control, adjustment of the mA and/or kV according to patient size, and/or use of iterative reconstruction technique. FINDINGS: LOWER THORAX: Unremarkable. LIVER: Unremarkable. No gross lesion or ductal dilatation. GALLBLADDER AND BILE DUCTS: Unremarkable. PANCREAS: Unremarkable. No gross lesion or ductal dilatation. SPLEEN: Unremarkable. ADRENALS: Unremarkable. No mass. KIDNEYS AND URETERS: Multiple small nonobstructing calculi in both kidneys. No renal mass. No hydronephrosis. VASCULATURE: Unremarkable. No aortic aneurysm. No aortic atherosclerotic calcification or mural plaque present. BOWEL: No evidence of small-bowel obstruction. Inadequate distention of small bowel for proper evaluation. Please note that there is inadequate intravenous contrast enhancement for evaluation of the bowel wall. There is mild distention of the colon with liquified feces throughout the ascending and descending colon. At the descending/sigmoid colonic junction there is abrupt change in caliber. There is no associated soft tissue mass. Nevertheless, neoplasm must be considered as possibly etiology in addition to stricture. There is mild mural thickening of the descending colon, decreased in extent when compared to the prior CT examination. There is no pericolonic inflammatory change. There is no mural thickening appreciated elsewhere. There is mild sigmoid diverticulosis without evidence of diverticulitis. APPENDIX: Normal appendix. PERITONEUM: Trace fluid in the paracolic gutters. No generalized ascites. No pneumoperitoneum. LYMPH NODES: Unremarkable. No enlarged lymph nodes. BLADDER: Unremarkable. REPRODUCTIVE: Normal prostate BONES: No acute fracture. OTHER FINDINGS: None. IMPRESSION: Abrupt transition in colonic lumen diameter at the descending/sigmoid colonic junction. No soft tissue mass identified. No focal inflammatory change identified. Possible stricture. Cannot rule out neoplasm. Consider evaluation with colonoscopy. Mild circumferential mural thickening of the descending colon decreased in extent compared to 02/05/2018. Consistent with nonspecific colitis. Sigmoid diverticulosis without evidence of diverticulitis. Limited evaluation of small bowel. No small bowel obstruction. Multiple small bilateral nonobstructing renal calculi. No other significant abnormality identified.
--- NOTE | 2018-02-14 16:54 | CP.PCM.PN ---
<Henrique De León - Last Filed: 02/14/18 16:50> Subjective - Date & Time of Evaluation Date of Evaluation: 02/14/18 Time of Evaluation: 11:30 - Subjective Subjective: 53 y/o M was seen and examined by bedside with Dr Costa. Pt still complains of abdominal pain and distension, pt reports he had more than 3 bowel movements overnight. Pt reports mild nausea but no vomiting. Pt afebrile, tolerating PO, with NO acute events overnight. Objective - Vital Signs/Intake and Output Vital Signs (last 24 hours): Temp Pulse Resp BP Pulse Ox 97.9 F 59 L 20 142/97 H 95 02/14/18 09:00 02/14/18 09:05 02/14/18 09:00 02/14/18 09:00 02/14/18 09:00 - Medications Medications: Current Medications Albuterol (Ventolin Hfa 90 Mcg/Actuation (8 G)) 1 puff IH BID PRN PRN Reason: cough, sob Docusate Sodium (Colace) 100 mg PO BID PRN PRN Reason: Constipation Last Admin: 02/14/18 16:23 Dose: 100 mg Enoxaparin Sodium (Lovenox) 40 mg SC DAILY [facility]; Protocol Last Admin: 02/14/18 13:53 Dose: 40 mg Dextrose/Lactated Ringer's (Dextrose 5%/Lactated Ringer's) 1,000 mls @ 80 mls/hr IV .[id number] [facility] Stop: 02/14/18 22:16 Last Admin: 02/14/18 13:51 Dose: 80 mls/hr Ketorolac Tromethamine (Toradol) 30 mg IVP Q6 PRN PRN Reason: Pain, moderate (4-7) Last Admin: 02/14/18 16:22 Dose: 30 mg Lactulose (Enulose) 10 gm PO Q4 [facility] Last Admin: 02/14/18 16:22 Dose: 10 gm Meclizine HCl (Antivert) 25 mg PO Q6 [facility] Last Admin: 02/14/18 16:22 Dose: 25 mg Metoprolol Succinate (Toprol Xl) 100 mg PO DAILY [facility] Last Admin: 02/14/18 09:05 Dose: Not Given Ondansetron HCl (Zofran Inj) 4 mg IVP Q6 PRN PRN Reason: Nausea/Vomiting Last Admin: 02/13/18 17:06 Dose: 4 mg Pantoprazole Sodium (Protonix Inj) 40 mg IVP DAILY [facility] Last Admin: 02/14/18 09:45 Dose: 40 mg Polyethylene Glycol (Miralax) 17 gm PO QAM PRN PRN Reason: Constipation Last Admin: 02/13/18 09:14 Dose: 17 gm Sodium Phosphate (Fleet Enema) 135 ml GA ONCE ONE Stop: 02/14/18 20:01 - Labs Labs: 02/14/18 05:40 02/14/18 05:40 - Additional Findings Additional findings: - Constitutional Appears: No Acute Distress - Head Exam Head Exam: ATRAUMATIC, NORMAL INSPECTION - Eye Exam Eye Exam: EOMI, Normal appearance - ENT Exam ENT Exam: absent: Mucous Membranes Dry - Neck Exam Neck exam: Positive for: Full Rom, Normal Inspection - Respiratory Exam Respiratory Exam: NORMAL BREATHING PATTERN. absent: Rales, Rhonchi, Wheezes - Cardiovascular Exam Cardiovascular Exam: REGULAR RHYTHM, +S1 - GI/Abdominal Exam GI & Abdominal Exam: Distended, Soft, Tenderness (mostly on LLQ). absent: Guarding Additional comments: Presence of scattered psoriatic lesion covering all abdomen. - Back Exam Back exam: absent: CVA tenderness (L), CVA tenderness (R) Assessment and Plan - Assessment and Plan (Free Text) Assessment: 52 y/o M with a PMHx asthma, DM, HTN, ADRIENNE and psoriasis admitted for abdominal pain and distension. -Pt visited ER last week adn d/c on same day; however, CT abdomen on 02/04 showed colitis vs diverticulitis, neoplasm cannot be excluded. -Letter was sent to pt to return to hospital. PLAN: --Stable, still with abdominal pain --CT enterograpy to evaluate colon for sign of obstruction. --Lactulose Q4H --GI on board, Dr Johnson --Zofran , Pantoprazole and IV fluids --Home medications resumed. --Continue management as ordered. Case discussed with Dr Julissa Morel, PGY-2 <Jorge Alberto Costa - Last Filed: 02/18/18 01:47> Objective - Vital Signs/Intake and Output Vital Signs (last 24 hours): Temp Pulse Resp BP Pulse Ox 97.6 F 94 H 18 126/86 91 L 02/17/18 17:00 02/17/18 17:00 02/17/18 17:00 02/17/18 17:00 02/17/18 17:00 Intake and Output: 02/17/18 02/18/18 18:59 06:59 Output Total 1000 1650 Balance -1000 -1650 - Medications Medications: Current Medications Albuterol (Ventolin Hfa 90 Mcg/Actuation (8 G)) 1 puff IH BID PRN PRN Reason: cough, sob Docusate Sodium (Colace) 100 mg PO BID PRN PRN Reason: Constipation Last Admin: 02/14/18 16:23 Dose: 100 mg Lactated Ringer's (Lactated Ringer's) 1,000 mls @ 120 mls/hr IV .[id number] [facility] Last Admin: 02/17/18 22:01 Dose: 120 mls/hr Ketorolac Tromethamine (Toradol) 30 mg IVP Q6 PRN PRN Reason: Pain, moderate (4-7) Last Admin: 02/17/18 06:42 Dose: 30 mg Lactulose (Enulose) 10 gm PO Q6 PRN PRN Reason: Constipation Metoprolol Succinate (Toprol Xl) 100 mg PO DAILY [facility] Last Admin: 02/17/18 09:48 Dose: Not Given Ondansetron HCl (Zofran Inj) 4 mg IVP Q4 PRN PRN Reason: Nausea/Vomiting Last Admin: 02/17/18 06:19 Dose: 4 mg Pantoprazole Sodium (Protonix Inj) 40 mg IVP DAILY [facility] Last Admin: 02/17/18 08:24 Dose: 40 mg Polyethylene Glycol (Miralax) 17 gm PO QAM PRN PRN Reason: Constipation Last Admin: 02/13/18 09:14 Dose: 17 gm - Labs Labs: 02/16/18 05:30 02/16/18 05:30 Assessment and Plan - Assessment and Plan (Free Text) Plan: I was present during evaluation and discussed with Dr De León re plans of care and mgt Jorge Alberto Costa M.D.
[2018-02-14] MEDS: Lactated Ringer's 1,000 ML IV SCH ×2 (20:00→23:45)
[2018-02-15] MEDS: Lactulose 10 gm/15 ml Syrup PO SCH ×6 (01:49→22:00)
[2018-02-15] MEDS ORDERED: Simethicone 80 mg Chewtab PO ONE (02:00)
[2018-02-15] MEDS ORDERED: Chlorhexidine Gluconate 1 APPL/PKT TP ONE (05:05)
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
[2018-02-15] MEDS: Metoprolol Succinate 100 mg XL Tab PO SCH (08:00)
[2018-02-15] MEDS ORDERED: Lactated Ringer's 500 ML IV ONE (08:45)
[2018-02-15] MEDS ORDERED: Lidocaine 1% 5ml Abboject ONE (08:52)
[2018-02-15] MEDS ORDERED: Propofol 10 mg/ml Inj (20 ML) ONE ×2 (08:52→09:24)
[2018-02-15] MEDS ORDERED: Lidocaine 2% Jelly (5 ml) TOP ONE (09:21)
--- NOTE | 2018-02-15 09:34 | CP.PCM.PN ---
<Enio Armendariz - Last Filed: 02/15/18 12:33> Subjective - Date & Time of Evaluation Date of Evaluation: 02/15/18 Time of Evaluation: 09:31 - Subjective Subjective: GI Note for Dr. Johnson 52M seen and examined at bedside. Patient received colonoscopy today. A lot of liquid stool in colon, was able to pass by stenosis during this procedure but very difficult to identify lumen due to stenosis. No intraluminal mass vis ualized but stool obstructing view. Cannot rule out extraluminal compression. Objective - Vital Signs/Intake and Output Vital Signs (last 24 hours): Temp Pulse Resp BP Pulse Ox 98.1 F 104 H 20 134/98 H 95 02/15/18 08:46 02/15/18 08:46 02/15/18 08:46 02/15/18 08:46 02/15/18 08:46 Intake and Output: 02/15/18 02/15/18 06:59 18:59 Intake Total 250 Balance 250 - Medications Medications: Current Medications Albuterol (Ventolin Hfa 90 Mcg/Actuation (8 G)) 1 puff IH BID PRN PRN Reason: cough, sob Docusate Sodium (Colace) 100 mg PO BID PRN PRN Reason: Constipation Last Admin: 02/14/18 16:23 Dose: 100 mg Enoxaparin Sodium (Lovenox) 40 mg SC DAILY [facility]; Protocol Last Admin: 02/14/18 13:53 Dose: 40 mg Lactated Ringer's (Lactated Ringer's) 1,000 mls @ 60 mls/hr IV .[id number] [facility] Last Admin: 02/14/18 23:45 Dose: 60 mls/hr Ketorolac Tromethamine (Toradol) 30 mg IVP Q6 PRN PRN Reason: Pain, moderate (4-7) Last Admin: 02/14/18 16:22 Dose: 30 mg Lactulose (Enulose) 10 gm PO Q4 [facility] Last Admin: 02/15/18 05:26 Dose: Not Given Meclizine HCl (Antivert) 25 mg PO Q6 [facility] Last Admin: 02/15/18 04:25 Dose: Not Given Metoprolol Succinate (Toprol Xl) 100 mg PO DAILY [facility] Last Admin: 02/15/18 08:00 Dose: 100 mg Ondansetron HCl (Zofran Inj) 4 mg IVP Q6 PRN PRN Reason: Nausea/Vomiting Last Admin: 02/15/18 08:23 Dose: 4 mg Pantoprazole Sodium (Protonix Inj) 40 mg IVP DAILY [facility] Last Admin: 02/15/18 08:03 Dose: 40 mg Polyethylene Glycol (Miralax) 17 gm PO QAM PRN PRN Reason: Constipation Last Admin: 02/13/18 09:14 Dose: 17 gm - Labs Labs: 02/14/18 05:40 02/14/18 05:40 - Constitutional Appears: Non-toxic, No Acute Distress - Respiratory Exam Respiratory Exam: Clear to Ausculation Bilateral, NORMAL BREATHING PATTERN - Cardiovascular Exam Cardiovascular Exam: REGULAR RHYTHM, +S1, +S2 - GI/Abdominal Exam GI & Abdominal Exam: Distended, Soft. absent: Firm, Guarding, Rigid, Tenderness, Rebound - Neurological Exam Neurological Exam: Alert, Awake Assessment and Plan - Assessment and Plan (Free Text) Assessment: 52M with abdominal distention from colonic compression/stricture s/p colonoscopy - A lot of liquid stool in colon, was able to pass by stenosis during this procedure but very difficult to identify lumen due to stenosis. No intraluminal mass visualized but stool obstructing view. Obstruction likely due to extraluminal compression. Plan: - clear liquid diet - Recommend stat surgical evaluation for laparoscopy as obstruction likely due to extraluminal compression, obstruction not improving Discussed with Dr. Elizabeth Armendariz, PGY3 <Jamir Johnson - Last Filed: 02/15/18 13:22> Objective - Vital Signs/Intake and Output Vital Signs (last 24 hours): Temp Pulse Resp BP Pulse Ox 98.1 F 85 20 153/105 H 94 L 02/15/18 11:00 02/15/18 11:00 02/15/18 11:00 02/15/18 11:00 02/15/18 11:00 Intake and Output: 02/15/18 02/15/18 06:59 18:59 Intake Total 500 Balance 500 - Medications Medications: Current Medications Albuterol (Ventolin Hfa 90 Mcg/Actuation (8 G)) 1 puff IH BID PRN PRN Reason: cough, sob Docusate Sodium (Colace) 100 mg PO BID PRN PRN Reason: Constipation Last Admin: 02/14/18 16:23 Dose: 100 mg Enoxaparin Sodium (Lovenox) 40 mg SC DAILY [facility]; Protocol Last Admin: 02/15/18 11:47 Dose: 40 mg Lactated Ringer's (Lactated Ringer's) 1,000 mls @ 60 mls/hr IV .[id number] [facility] Last Admin: 02/14/18 23:45 Dose: 60 mls/hr Lactated Ringer's (Lactated Ringer's) 1,000 mls @ 100 mls/hr IV .Q10H [facility] Ketorolac Tromethamine (Toradol) 30 mg IVP Q6 PRN PRN Reason: Pain, moderate (4-7) Last Admin: 02/15/18 11:45 Dose: 30 mg Lactulose (Enulose) 10 gm PO Q4 [facility] Last Admin: 02/15/18 10:09 Dose: Not Given Meclizine HCl (Antivert) 25 mg PO Q6 [facility] Last Admin: 02/15/18 11:49 Dose: 25 mg Metoprolol Succinate (Toprol Xl) 100 mg PO DAILY [facility] Last Admin: 02/15/18 08:00 Dose: 100 mg Ondansetron HCl (Zofran Inj) 4 mg IVP Q6 PRN PRN Reason: Nausea/Vomiting Last Admin: 02/15/18 08:23 Dose: 4 mg Pantoprazole Sodium (Protonix Inj) 40 mg IVP DAILY [facility] Last Admin: 02/15/18 08:03 Dose: 40 mg Polyethylene Glycol (Miralax) 17 gm PO QAM PRN PRN Reason: Constipation Last Admin: 02/13/18 09:14 Dose: 17 gm Pyridostigmine [place] (Mestinon Tab) 30 mg PO TID [facility] - Labs Labs: 02/14/18 05:40 02/14/18 05:40 Assessment and Plan - Assessment and Plan (Free Text) Assessment: Colonoscopy c/w repeated imaging studies showing change in colon caliber at area of sigmoid/ descending colon. Scope was able to pass through and no intraluminal lesion seen. Proximal to this area colon was distended. Findings c/w partial obstruction likely extraluminal. In view of patient's symptoms recommend exploratory laparoscopy.
[2018-02-15] MEDS: Enoxaparin 40 mg Syringe SC SCH ×2 (10:09→11:47)
--- NOTE | 2018-02-15 16:35 | CP.PCM.PN ---
<Henrique De León - Last Filed: 02/15/18 16:30> Subjective - Date & Time of Evaluation Date of Evaluation: 02/15/18 Time of Evaluation: 10:55 - Subjective Subjective: 53 y/o M was seen and examined by bedside with Dr Costa. Pt seems midly confused as he just had a colonoscopy performed. Pt afebrile, tolerating PO, with NO acute events overnight. Objective - Vital Signs/Intake and Output Vital Signs (last 24 hours): Temp Pulse Resp BP Pulse Ox 98.1 F 55 L 20 126/79 94 L 02/15/18 14:00 02/15/18 14:00 02/15/18 14:00 02/15/18 14:00 02/15/18 14:00 Intake and Output: 02/15/18 02/15/18 06:59 18:59 Intake Total 500 Balance 500 - Medications Medications: Current Medications Albuterol (Ventolin Hfa 90 Mcg/Actuation (8 G)) 1 puff IH BID PRN PRN Reason: cough, sob Docusate Sodium (Colace) 100 mg PO BID PRN PRN Reason: Constipation Last Admin: 02/14/18 16:23 Dose: 100 mg Enoxaparin Sodium (Lovenox) 40 mg SC DAILY [facility]; Protocol Last Admin: 02/15/18 11:47 Dose: 40 mg Lactated Ringer's (Lactated Ringer's) 1,000 mls @ 60 mls/hr IV .[id number] [facility] Last Admin: 02/14/18 23:45 Dose: 60 mls/hr Lactated Ringer's (Lactated Ringer's) 1,000 mls @ 100 mls/hr IV .Q10H [facility] Ketorolac Tromethamine (Toradol) 30 mg IVP Q6 PRN PRN Reason: Pain, moderate (4-7) Last Admin: 02/15/18 11:45 Dose: 30 mg Lactulose (Enulose) 10 gm PO Q4 [facility] Last Admin: 02/15/18 13:25 Dose: 10 gm Meclizine HCl (Antivert) 25 mg PO Q6 [facility] Last Admin: 02/15/18 11:49 Dose: 25 mg Metoprolol Succinate (Toprol Xl) 100 mg PO DAILY [facility] Last Admin: 02/15/18 08:00 Dose: 100 mg Ondansetron HCl (Zofran Inj) 4 mg IVP Q6 PRN PRN Reason: Nausea/Vomiting Last Admin: 02/15/18 08:23 Dose: 4 mg Pantoprazole Sodium (Protonix Inj) 40 mg IVP DAILY [facility] Last Admin: 02/15/18 08:03 Dose: 40 mg Polyethylene Glycol (Miralax) 17 gm PO QAM PRN PRN Reason: Constipation Last Admin: 02/13/18 09:14 Dose: 17 gm Pyridostigmine [place] (Mestinon Tab) 30 mg PO TID [facility] Last Admin: 02/15/18 14:41 Dose: 30 mg - Labs Labs: 02/14/18 05:40 02/14/18 05:40 - Additional Findings Additional findings: - Constitutional Appears: No Acute Distress - Head Exam Head Exam: ATRAUMATIC, NORMAL INSPECTION - Eye Exam Eye Exam: EOMI, Normal appearance - ENT Exam ENT Exam: absent: Mucous Membranes Dry - Neck Exam Neck exam: Positive for: Full Rom, Normal Inspection - Respiratory Exam Respiratory Exam: NORMAL BREATHING PATTERN. absent: Rales, Rhonchi, Wheezes - Cardiovascular Exam Cardiovascular Exam: REGULAR RHYTHM, +S1 - GI/Abdominal Exam GI & Abdominal Exam: Distended, Soft, Tenderness (mostly on LLQ). absent: Guarding Additional comments: Presence of scattered psoriatic lesion covering all abdomen. - Back Exam Back exam: absent: CVA tenderness (L), CVA tenderness (R) Assessment and Plan - Assessment and Plan (Free Text) Assessment: 52 y/o M with a PMHx asthma, DM, HTN, ADRIENNE and psoriasis admitted for abdominal pain and distension. -Pt visited ER last week adn d/c on same day; however, CT abdomen on 02/04 showed colitis vs diverticulitis, neoplasm cannot be excluded. -Letter was sent to pt to return to hospital. PLAN: --Stable, still with abdominal pain --CT enterograpy: abrupt transition in lumen diameter at descending-sigmois junction. Colonoscopy recommended. --Colonoscopy performed early today. F/U final report. --Lactulose Q4H --GI on board, Dr Johnson --Home medications resumed. --Continue management as ordered. Case discussed with Dr Julissa oMrel, PGY-2 <Jorge Alberto Costa L - Last Filed: 02/18/18 01:48> Objective - Vital Signs/Intake and Output Vital Signs (last 24 hours): Temp Pulse Resp BP Pulse Ox 97.6 F 94 H 18 126/86 91 L 02/17/18 17:00 02/17/18 17:00 02/17/18 17:00 02/17/18 17:00 02/17/18 17:00 Intake and Output: 02/17/18 02/18/18 18:59 06:59 Output Total 1000 1650 Balance -1000 -1650 - Medications Medications: Current Medications Albuterol (Ventolin Hfa 90 Mcg/Actuation (8 G)) 1 puff IH BID PRN PRN Reason: cough, sob Docusate Sodium (Colace) 100 mg PO BID PRN PRN Reason: Constipation Last Admin: 02/14/18 16:23 Dose: 100 mg Lactated Ringer's (Lactated Ringer's) 1,000 mls @ 120 mls/hr IV .[id number] [facility] Last Admin: 02/17/18 22:01 Dose: 120 mls/hr Ketorolac Tromethamine (Toradol) 30 mg IVP Q6 PRN PRN Reason: Pain, moderate (4-7) Last Admin: 02/17/18 06:42 Dose: 30 mg Lactulose (Enulose) 10 gm PO Q6 PRN PRN Reason: Constipation Metoprolol Succinate (Toprol Xl) 100 mg PO DAILY [facility] Last Admin: 02/17/18 09:48 Dose: Not Given Ondansetron HCl (Zofran Inj) 4 mg IVP Q4 PRN PRN Reason: Nausea/Vomiting Last Admin: 02/17/18 06:19 Dose: 4 mg Pantoprazole Sodium (Protonix Inj) 40 mg IVP DAILY [facility] Last Admin: 02/17/18 08:24 Dose: 40 mg Polyethylene Glycol (Miralax) 17 gm PO QAM PRN PRN Reason: Constipation Last Admin: 02/13/18 09:14 Dose: 17 gm - Labs Labs: 02/16/18 05:30 02/16/18 05:30 Assessment and Plan - Assessment and Plan (Free Text) Plan: I was present during evaluation and discussed with Dr De León re plans of care and mgt. Jorge Alberto Costa M.D.
[2018-02-15] MEDS: Lactated Ringer's 1,000 ML IV SCH (16:53)
[2018-02-16] MEDS: Lactulose 10 gm/15 ml Syrup PO SCH ×3 (01:00→10:13)
--- NOTE | 2018-02-16 06:10 | CP.PCM.PN ---
Subjective - Date & Time of Evaluation Date of Evaluation: 02/16/18 Time of Evaluation: 06:45 - Subjective Subjective: Surgery: Dr. Gray Patient seen and examined this am at bedside. Overnight he became nauseous and vomited once with bile tinged emesis. An attempt was made to place NGT but patient was not able to tolerate. Patient now NPO. Patient had no further emesis throughout the night. Patient endorses mild epigastric pain. Patient endorses l oose/liquid BM overnight and this AM. Patient otherwise denies PRYOR, f/c, PRYRO, CP, SOB, n/v and extremity pain. Objective - Vital Signs/Intake and Output Vital Signs (last 24 hours): Temp Pulse Resp BP Pulse Ox 97.8 F 61 18 142/89 96 02/15/18 23:54 02/15/18 23:54 02/15/18 23:54 02/15/18 23:54 02/15/18 23:54 Intake and Output: 02/15/18 02/16/18 18:59 06:59 Intake Total 500 Balance 500 - Medications Medications: Current Medications Albuterol (Ventolin Hfa 90 Mcg/Actuation (8 G)) 1 puff IH BID PRN PRN Reason: cough, sob Docusate Sodium (Colace) 100 mg PO BID PRN PRN Reason: Constipation Last Admin: 02/14/18 16:23 Dose: 100 mg Enoxaparin Sodium (Lovenox) 40 mg SC DAILY [facility]; Protocol Last Admin: 02/15/18 11:47 Dose: 40 mg Lactated Ringer's (Lactated Ringer's) 1,000 mls @ 60 mls/hr IV .[id number] [facility] Last Admin: 02/15/18 16:53 Dose: Not Given Lactated Ringer's (Lactated Ringer's) 1,000 mls @ 100 mls/hr IV .Q10H [facility] Last Admin: 02/14/18 20:00 Dose: 100 mls/hr Ketorolac Tromethamine (Toradol) 30 mg IVP Q6 PRN PRN Reason: Pain, moderate (4-7) Last Admin: 02/15/18 17:42 Dose: 30 mg Lactulose (Enulose) 10 gm PO Q4 [facility] Last Admin: 02/15/18 22:00 Dose: Not Given Meclizine HCl (Antivert) 25 mg PO Q6 [facility] Last Admin: 02/15/18 22:00 Dose: Not Given Metoprolol Succinate (Toprol Xl) 100 mg PO DAILY [facility] Last Admin: 02/15/18 08:00 Dose: 100 mg Ondansetron HCl (Zofran Inj) 4 mg IVP Q4 PRN PRN Reason: Nausea/Vomiting Last Admin: 02/15/18 23:43 Dose: 4 mg Pantoprazole Sodium (Protonix Inj) 40 mg IVP DAILY [facility] Last Admin: 02/15/18 08:03 Dose: 40 mg Polyethylene Glycol (Miralax) 17 gm PO QAM PRN PRN Reason: Constipation Last Admin: 02/13/18 09:14 Dose: 17 gm Pyridostigmine [place] (Mestinon Tab) 30 mg PO TID [facility] Last Admin: 02/15/18 17:49 Dose: Not Given - Labs Labs: 02/14/18 05:40 02/14/18 05:40 - Constitutional Appears: Well, Non-toxic, No Acute Distress - Head Exam Head Exam: ATRAUMATIC, NORMOCEPHALIC - Eye Exam Eye Exam: EOMI - ENT Exam ENT Exam: Mucous Membranes Moist - Respiratory Exam Respiratory Exam: NORMAL BREATHING PATTERN - Cardiovascular Exam Cardiovascular Exam: REGULAR RHYTHM - GI/Abdominal Exam GI & Abdominal Exam: Distended, Soft, Tenderness (mild epigastric). absent: Gu arding - Extremities Exam Extremities Exam: Normal Capillary Refill. absent: Calf Tenderness, Pedal Edema - Neurological Exam Neurological Exam: Alert, Awake, Oriented x3 - Psychiatric Exam Psychiatric exam: Normal Affect, Normal Mood - Skin Skin Exam: Dry, Intact, Warm Additional comments: diffuse rash consistent with psoriasis present over abdomen and legs bilaterally Assessment and Plan - Assessment and Plan (Free Text) Assessment: 52 yr old male with colonic obstruction, no mass on colonoscopy, narrowing seen on CT Plan: Trial of CLD today IVF monitor for N/V c/w zofran for N/V will d/w Dr. Isaac Ruth, PGY 1
[2018-02-16] MEDS: Lactated Ringer's 1,000 ML IV SCH ×2 (06:29→10:09)
[2018-02-16 07:55] LABS: HEMOGLOBIN 14.4 g/dL (12.0-18.0); MEAN CELL VOLUME 85.6 fl (80.0-94.0); MEAN CORPUSCULAR HGB CONC 32.7 g/dL (33.0-37.0); RBC 5.13 Mil/uL (4.40-5.90); RED CELL DISTRIBUTION WIDTH 14.1 % (11.5-14.5)
[2018-02-16 07:56] LABS: CALCIUM 9.1 mg/dL (8.4-10.2)
[2018-02-16] MEDS: Metoprolol Succinate 100 mg XL Tab PO SCH (09:57)
[2018-02-16] MEDS: Enoxaparin 40 mg Syringe SC SCH (09:57)
[2018-02-16] MEDS ORDERED: Lactulose 10 gm/15 ml Syrup PO PRN (10:21)
--- NOTE | 2018-02-16 12:47 | RAD ---
Date of service: 02/16/2018 HISTORY: bowel obstruction COMPARISON: CT enterography 02/14/2018, obstruction series 02/13/2018 FINDINGS: BOWEL: Moderate multiple persistent dilated bowel loops are identified with possible transition in the left lower quadrant region suggesting distal colonic obstruction with additional secondary small bowel obstruction. No pneumatosis intestinalis seen. Free air is limited on supine radiographs. BONES: Unchanged OTHER FINDINGS: None. IMPRESSION: Persistent colonic and small bowel dilatation seen on prior studies.
[2018-02-17] MEDS: Lactated Ringer's 1,000 ML IV SCH ×4 (01:40→22:01)
[2018-02-17] MEDS ORDERED: Chlorhexidine Gluconate 1 APPL/PKT TP ONE (06:54)
--- NOTE | 2018-02-17 07:36 | CP.PCM.PN ---
Subjective - Date & Time of Evaluation Date of Evaluation: 02/17/18 Time of Evaluation: 07:34 - Subjective Subjective: Surgery PT seen and examined. Pt had multiple episodes of emesis overnight. REports foul smelling thick yellow material. Also reports watery BM. NGT was placed this AM. put out 1.5 L succus thick yellow foul smelling fluids immediately. Pt voiding freely. Objective - Vital Signs/Intake and Output Vital Signs (last 24 hours): Temp Pulse Resp BP Pulse Ox 98.5 F 59 L 19 118/76 95 02/17/18 00:09 02/17/18 00:09 02/17/18 00:09 02/17/18 00:09 02/17/18 00:09 - Medications Medications: Current Medications Albuterol (Ventolin Hfa 90 Mcg/Actuation (8 G)) 1 puff IH BID PRN PRN Reason: cough, sob Docusate Sodium (Colace) 100 mg PO BID PRN PRN Reason: Constipation Last Admin: 02/14/18 16:23 Dose: 100 mg Enoxaparin Sodium (Lovenox) 40 mg SC DAILY [facility]; Protocol Last Admin: 02/16/18 09:57 Dose: 40 mg Lactated Ringer's (Lactated Ringer's) 1,000 mls @ 60 mls/hr IV .[id number] [facility] Last Admin: 02/17/18 01:40 Dose: 60 mls/hr Ketorolac Tromethamine (Toradol) 30 mg IVP Q6 PRN PRN Reason: Pain, moderate (4-7) Last Admin: 02/17/18 06:42 Dose: 30 mg Lactulose (Enulose) 10 gm PO Q6 PRN PRN Reason: Constipation Metoprolol Succinate (Toprol Xl) 100 mg PO DAILY [facility] Last Admin: 02/16/18 09:57 Dose: 100 mg Ondansetron HCl (Zofran Inj) 4 mg IVP Q4 PRN PRN Reason: Nausea/Vomiting Last Admin: 02/17/18 06:19 Dose: 4 mg Pantoprazole Sodium (Protonix Inj) 40 mg IVP DAILY [facility] Last Admin: 02/16/18 09:56 Dose: 40 mg Polyethylene Glycol (Miralax) 17 gm PO QAM PRN PRN Reason: Constipation Last Admin: 02/13/18 09:14 Dose: 17 gm Pyridostigmine [place] (Mestinon Tab) 30 mg PO TID [facility] Last Admin: 02/16/18 17:16 Dose: Not Given - Labs Labs: 02/16/18 05:30 02/16/18 05:30 - Constitutional Appears: In Acute Distress - Head Exam Head Exam: ATRAUMATIC, NORMAL INSPECTION, NORMOCEPHALIC - Eye Exam Eye Exam: EOMI - ENT Exam ENT Exam: Mucous Membranes Moist - Neck Exam Neck Exam: Normal Inspection - Respiratory Exam Respiratory Exam: NORMAL BREATHING PATTERN - Cardiovascular Exam Cardiovascular Exam: REGULAR RHYTHM - GI/Abdominal Exam GI & Abdominal Exam: Distended, Soft, Tenderness - Extremities Exam Extremities Exam: Full ROM, Normal Inspection - Back Exam Back Exam: NORMAL INSPECTION - Neurological Exam Neurological Exam: Alert, Awake, Normal Gait, Oriented x3 - Psychiatric Exam Psychiatric exam: Normal Affect, Normal Mood - Skin Skin Exam: Dry, Rash, Warm. absent: Normal Color Assessment and Plan - Assessment and Plan (Free Text) Assessment: 52 yr old male with colonic obstruction, no mass on colonoscopy, narrowing seen on CT Plan: NGT output NPO IVF encourage ambulation monitor for N/V c/w zofran for N/V will d/w Dr. Gray
[2018-02-17] MEDS: Enoxaparin 40 mg Syringe SC SCH (08:24)
[2018-02-17] MEDS: Metoprolol Succinate 100 mg XL Tab PO SCH (09:48)
--- NOTE | 2018-02-17 10:27 | CP.PCM.PN ---
Subjective - Date & Time of Evaluation Date of Evaluation: 02/17/18 Time of Evaluation: 10:20 - Subjective Subjective: Patient had NG tube placed and large amount of fluid aspirated Objective - Vital Signs/Intake and Output Vital Signs (last 24 hours): Temp Pulse Resp BP Pulse Ox 97.8 F 108 H 20 130/90 95 02/17/18 08:14 02/17/18 08:14 02/17/18 08:14 02/17/18 08:14 02/17/18 08:14 - Medications Medications: Current Medications Albuterol (Ventolin Hfa 90 Mcg/Actuation (8 G)) 1 puff IH BID PRN PRN Reason: cough, sob Docusate Sodium (Colace) 100 mg PO BID PRN PRN Reason: Constipation Last Admin: 02/14/18 16:23 Dose: 100 mg Enoxaparin Sodium (Lovenox) 40 mg SC DAILY [facility]; Protocol Last Admin: 02/17/18 08:24 Dose: 40 mg Lactated Ringer's (Lactated Ringer's) 1,000 mls @ 120 mls/hr IV .Q8H20M [facility] Last Admin: 02/17/18 08:26 Dose: 120 mls/hr Ketorolac Tromethamine (Toradol) 30 mg IVP Q6 PRN PRN Reason: Pain, moderate (4-7) Last Admin: 02/17/18 06:42 Dose: 30 mg Lactulose (Enulose) 10 gm PO Q6 PRN PRN Reason: Constipation Metoprolol Succinate (Toprol Xl) 100 mg PO DAILY [facility] Last Admin: 02/16/18 09:57 Dose: 100 mg Ondansetron HCl (Zofran Inj) 4 mg IVP Q4 PRN PRN Reason: Nausea/Vomiting Last Admin: 02/17/18 06:19 Dose: 4 mg Pantoprazole Sodium (Protonix Inj) 40 mg IVP DAILY [facility] Last Admin: 02/17/18 08:24 Dose: 40 mg Polyethylene Glycol (Miralax) 17 gm PO QAM PRN PRN Reason: Constipation Last Admin: 02/13/18 09:14 Dose: 17 gm Pyridostigmine [place] (Mestinon Tab) 30 mg PO TID [facility] Last Admin: 02/16/18 17:16 Dose: Not Given - Labs Labs: 02/16/18 05:30 02/16/18 05:30 - Head Exam Head Exam: ATRAUMATIC - Eye Exam Eye Exam: Normal appearance - ENT Exam ENT Exam: Mucous Membranes Moist - Respiratory Exam Respiratory Exam: Clear to Ausculation Bilateral - Cardiovascular Exam Cardiovascular Exam: REGULAR RHYTHM - GI/Abdominal Exam GI & Abdominal Exam: Distended, Normal Bowel Sounds Assessment and Plan (1) Colon obstruction Assessment & Plan: Persistent calber change of colon in mid descending colon seen at the same location over the past few weeks on repeat CT exams and c/w colonoscopy findings 3 days ago. Exploratory laparoscopy recommended. Surgery consulted on Sunday and are following patient, though so far no plans for surgery in their notes. Discussed yesterday with Dr. Costa. Status: Acute
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
[2018-02-17] MEDS ORDERED: DiphenhydrAMINE 50 mg/ml Inj IVP ONE (21:45)
--- NOTE | 2018-02-18 01:55 | CP.PCM.PN ---
Subjective - Date & Time of Evaluation Date of Evaluation: 02/16/18 Time of Evaluation: 17:00 - Subjective Subjective: Patient remains to have a very distended abdomen. Xray showed dilated loops with possible obstruction distal colon Had a discussion with Dr Johnson who suggested that patient may need to have explore lap Colonoscopy was unremarkable except for collapse of the distal colon which may mean an extraluminal cause of the obstruction. Objective - Vital Signs/Intake and Output Vital Signs (last 24 hours): Temp Pulse Resp BP Pulse Ox 97.6 F 94 H 18 126/86 91 L 02/17/18 17:00 02/17/18 17:00 02/17/18 17:00 02/17/18 17:00 02/17/18 17:00 Intake and Output: 02/17/18 02/18/18 18:59 06:59 Output Total 1000 1650 Balance -1000 -1650 - Medications Medications: Current Medications Albuterol (Ventolin Hfa 90 Mcg/Actuation (8 G)) 1 puff IH BID PRN PRN Reason: cough, sob Docusate Sodium (Colace) 100 mg PO BID PRN PRN Reason: Constipation Last Admin: 02/14/18 16:23 Dose: 100 mg Lactated Ringer's (Lactated Ringer's) 1,000 mls @ 120 mls/hr IV .Q8H20M [facility] Last Admin: 02/17/18 22:01 Dose: 120 mls/hr Ketorolac Tromethamine (Toradol) 30 mg IVP Q6 PRN PRN Reason: Pain, moderate (4-7) Last Admin: 02/17/18 06:42 Dose: 30 mg Lactulose (Enulose) 10 gm PO Q6 PRN PRN Reason: Constipation Metoprolol Succinate (Toprol Xl) 100 mg PO DAILY [facility] Last Admin: 02/17/18 09:48 Dose: Not Given Ondansetron HCl (Zofran Inj) 4 mg IVP Q4 PRN PRN Reason: Nausea/Vomiting Last Admin: 02/17/18 06:19 Dose: 4 mg Pantoprazole Sodium (Protonix Inj) 40 mg IVP DAILY [facility] Last Admin: 02/17/18 08:24 Dose: 40 mg Polyethylene Glycol (Miralax) 17 gm PO QAM PRN PRN Reason: Constipation Last Admin: 02/13/18 09:14 Dose: 17 gm - Labs Labs: 02/16/18 05:30 02/16/18 05:30 - Head Exam Head Exam: NORMAL INSPECTION - Respiratory Exam Respiratory Exam: Clear to Ausculation Bilateral - Cardiovascular Exam Cardiovascular Exam: Tachycardia - GI/Abdominal Exam GI & Abdominal Exam: Distended, Rigid Assessment and Plan (1) Intestinal obstruction Status: Acute (2) Diabetes mellitus type 2 in obese Status: Acute (3) HTN (hypertension) Status: Acute - Assessment and Plan (Free Text) Plan: Cont NPO or clear liquids Discussed with patient and daughter and suggested getting a second opinion.
--- NOTE | 2018-02-18 02:01 | CP.PCM.PN ---
Subjective - Date & Time of Evaluation Date of Evaluation: 02/17/18 Time of Evaluation: 14:00 - Subjective Subjective: Patient remains very distended(abdomen) Inserted NGT and had more than 2 liters of fluid collected. Has no fever repeat Xray of abd showed persistent obstruction Objective - Vital Signs/Intake and Output Vital Signs (last 24 hours): Temp Pulse Resp BP Pulse Ox 98.4 F 102 H 19 115/74 91 L 02/18/18 00:53 02/18/18 00:53 02/18/18 00:53 02/18/18 00:53 02/17/18 17:00 Intake and Output: 02/17/18 02/18/18 18:59 06:59 Output Total 1000 1650 Balance -1000 -1650 - Medications Medications: Current Medications Albuterol (Ventolin Hfa 90 Mcg/Actuation (8 G)) 1 puff IH BID PRN PRN Reason: cough, sob Docusate Sodium (Colace) 100 mg PO BID PRN PRN Reason: Constipation Last Admin: 02/14/18 16:23 Dose: 100 mg Lactated Ringer's (Lactated Ringer's) 1,000 mls @ 120 mls/hr IV .Q8H20M [facility] Last Admin: 02/17/18 22:01 Dose: 120 mls/hr Ketorolac Tromethamine (Toradol) 30 mg IVP Q6 PRN PRN Reason: Pain, moderate (4-7) Last Admin: 02/17/18 06:42 Dose: 30 mg Lactulose (Enulose) 10 gm PO Q6 PRN PRN Reason: Constipation Metoprolol Succinate (Toprol Xl) 100 mg PO DAILY [facility] Last Admin: 02/17/18 09:48 Dose: Not Given Ondansetron HCl (Zofran Inj) 4 mg IVP Q4 PRN PRN Reason: Nausea/Vomiting Last Admin: 02/17/18 06:19 Dose: 4 mg Pantoprazole Sodium (Protonix Inj) 40 mg IVP DAILY [facility] Last Admin: 02/17/18 08:24 Dose: 40 mg Polyethylene Glycol (Miralax) 17 gm PO QAM PRN PRN Reason: Constipation Last Admin: 02/13/18 09:14 Dose: 17 gm - Labs Labs: 02/16/18 05:30 11/10/18 05:30 - Head Exam Head Exam: NORMAL INSPECTION - Eye Exam Eye Exam: Normal appearance - ENT Exam ENT Exam: Mucous Membranes Moist - Respiratory Exam Respiratory Exam: Clear to Ausculation Bilateral - Cardiovascular Exam Cardiovascular Exam: Tachycardia - GI/Abdominal Exam GI & Abdominal Exam: Distended Assessment and Plan (1) Intestinal obstruction Status: Acute (2) Diabetes mellitus type 2 in obese Status: Acute (3) HTN (hypertension) Status: Acute - Assessment and Plan (Free Text) Plan: will do EKG and CXR check Pt PTT cont NGT keep NPO Called DR Lowery for second opinion as per family and patient's request medically stable for surgery in am
[2018-02-18] MEDS: Lactated Ringer's 1,000 ML IV SCH ×4 (05:55→23:36)
[2018-02-18 06:35] LABS: INR 1.3; PROTHROMBIN TIME 14.4 Seconds (9.8-13.1)
[2018-02-18 06:36] LABS: BASO % 0.2 % (0.0-2.0); EOS % 0.9 % (0.0-4.0); LYMPH # 1.4 K/uL (1.0-4.3); LYMPH % 27.9 % (20.0-40.0); MEAN CELL VOLUME 85.9 fl (80.0-94.0); MEAN CORPUSCULAR HEMOGLOBIN 28.4 pg (27.0-31.0); MEAN PLATELET VOLUME 7.9 fl (7.2-11.7); MONO # 0.7 K/uL (0.0-0.8); MONO % 13.3 % (0.0-10.0); NEUT # 2.9 K/uL (1.8-7.0); NEUT % 57.7 % (50.0-75.0); NRBC % 0.1 % (0.0-0.0); RBC 5.27 Mil/uL (4.40-5.90); WHITE BLOOD COUNT 5.1 K/uL (4.8-10.8)
[2018-02-18 06:45] LABS: ALB/GLOB RATIO 1.2 (1.0-2.1); ALBUMIN 4.3 g/dL (3.5-5.0); ALT/SGPT 39 U/L (21-72); AST/SGOT 19 U/L (17-59); BLOOD UREA NITROGEN 27 mg/dl (9-20); CALCIUM 9.6 mg/dL (8.4-10.2); GFR NON-AFRICAN AMERICAN 53
--- NOTE | 2018-02-18 08:28 | RAD ---
Date of service: 02/17/2018 HISTORY: pre-op COMPARISON: Frontal chest radiograph 02/04/2018. FINDINGS: LUNGS: History put pal volume remains relatively low. Limited linear atelectasis in the inferior left lung zone laterally with remaining lung woodruff clear. PLEURA: No significant pleural effusion identified, no pneumothorax apparent. CARDIOVASCULAR: No aortic atherosclerotic calcification present. Cardiomediastinal silhouette appears stable. No pulmonary vascular congestion. OSSEOUS STRUCTURES: No significant abnormalities. VISUALIZED UPPER ABDOMEN: Nasogastric tube terminates in the epigastric region. OTHER FINDINGS: None. IMPRESSION: Nasogastric tube terminates at the epigastric region. Limited linear atelectasis left base.
[2018-02-18] MEDS: Metoprolol Succinate 100 mg XL Tab PO SCH (08:55)
[2018-02-18] MEDS ORDERED: Lidocaine 1% Inj (20ml) ONE (12:11)
[2018-02-18] MEDS ORDERED: Bupivacaine HCl 0.5% PF (30 ml) Inj ONE (12:11)
[2018-02-18] MEDS ORDERED: metroNIDAZOLE 500mg/100ml NS 0 ML IVPB ONE (12:13)
[2018-02-18] MEDS ORDERED: Bupivacaine 0.25%-Epinephrine 1:200,000 (30 ml) Inj ONE (12:13)
[2018-02-18] MEDS ORDERED: Propofol 10 mg/ml Inj (20 ML) ONE (12:53)
[2018-02-18] MEDS ORDERED: ePHEDrine 50 mg/ml Inj ONE (12:53)
[2018-02-18] MEDS ORDERED: Midazolam 2 MG/2 ML VIAL ONE (12:53)
[2018-02-18] MEDS ORDERED: Succinylcholine 200 mg/10 ml Inj IV ONE (12:54)
[2018-02-18] MEDS ORDERED: Rocuronium 10 mg/ml (5 ml) ONE ×3 (12:54→15:41)
[2018-02-18] MEDS ORDERED: Lactated Ringer's 1,000 ML IV ONE ×4 (13:23→16:30)
[2018-02-18] MEDS ORDERED: ERTAPENEM 1 GM IVPB ONE (14:00)
[2018-02-18] MEDS ORDERED: Bupivacaine-Epi 0.25%-1:200,000 PF Inj IJ ONE (14:00)
[2018-02-18] MEDS ORDERED: Dexamethasone 4 mg/1 ml ONE (14:05)
--- NOTE | 2018-02-18 14:06 | CARD ---
APPROVED REPORT Date of service: 02/18/2018 EKG Measurement Heart [id number] <Conclusion> Normal sinus rhythm Possible Left atrial enlargement Left ventricular hypertrophy Nonspecific ST abnormality Prolonged QT Abnormal ECG
--- NOTE | 2018-02-18 14:57 | CP.PCM.PN ---
Subjective - Date & Time of Evaluation Date of Evaluation: 02/18/18 Time of Evaluation: 14:55 - Subjective Subjective: GI note for Dr. Johnson 52M currently in the operating room for Diag laparoscopy, poss exploratory laparotomy. Episode of vomiting over the weekend. Continues abdominal distention. High NGT output. Objective - Vital Signs/Intake and Output Vital Signs (last 24 hours): Temp Pulse Resp BP Pulse Ox 97.6 F 97 H 19 123/87 93 L 02/18/18 09:00 02/18/18 09:00 02/18/18 09:00 02/18/18 09:00 02/18/18 09:00 Intake and Output: 02/18/18 02/18/18 06:59 18:59 Intake Total 1440 Output Total 1650 1300 Balance -1650 140 - Medications Medications: Current Medications Albuterol (Ventolin Hfa 90 Mcg/Actuation (8 G)) 1 puff IH BID PRN PRN Reason: cough, sob Docusate Sodium (Colace) 100 mg PO BID PRN PRN Reason: Constipation Last Admin: 02/14/18 16:23 Dose: 100 mg Lactated Ringer's (Lactated Ringer's) 1,000 mls @ 120 mls/hr IV .Q8H20M [facility] Last Admin: 02/18/18 05:55 Dose: 120 mls/hr Ertapenem 1 gm/ Sodium (Chloride) 100 mls @ 100 mls/hr IVPB DAILY [facility] Ketorolac Tromethamine (Toradol) 30 mg IVP Q6 PRN PRN Reason: Pain, moderate (4-7) Last Admin: 02/17/18 06:42 Dose: 30 mg Lactulose (Enulose) 10 gm PO Q6 PRN PRN Reason: Constipation Metoprolol Succinate (Toprol Xl) 100 mg PO DAILY [facility] Last Admin: 02/18/18 08:55 Dose: 100 mg Ondansetron HCl (Zofran Inj) 4 mg IVP Q4 PRN PRN Reason: Nausea/Vomiting Last Admin: 02/17/18 06:19 Dose: 4 mg Pantoprazole Sodium (Protonix Inj) 40 mg IVP DAILY [facility] Last Admin: 02/18/18 08:53 Dose: 40 mg Polyethylene Glycol (Miralax) 17 gm PO QAM PRN PRN Reason: Constipation Last Admin: 02/13/18 09:14 Dose: 17 gm - Labs Labs: 02/18/18 05:40 02/18/18 05:40 PT 14.4 Seconds (9.8-13.1) H 02/18/18 05:40 INR 1.3 02/18/18 05:40 APTT 32.0 Seconds (25.6-37.1) 02/18/18 05:40 Assessment and Plan - Assessment and Plan (Free Text) Assessment: 52M with abdominal distention 2/2 colonic obstruction Plan: - currently in OR for exploratory - will follow up findings Further recs discuss with Dr. Johnson
[2018-02-18] MEDS ORDERED: Ropivacaine 0.5% 30ML IV ONE (17:11)
[2018-02-18] MEDS ORDERED: Neostigmine 1:1000 (1 mg/ml) Inj ONE (17:48)
--- NOTE | 2018-02-18 18:23 | PCM.SURG1 ---
Surgeon's Initial Post Op Note - Surgeon's Notes Surgeon: Sebastián [employer] Operator: Joselyn PGY4, Radha PGY1 Type of Anesthesia: General Endo, Local Pre-Operative Diagnosis: Large Bowel Obstruction Operative Findings: Chronically inflamed sigmoid Post-Operative Diagnosis: large bowel obstruction secondary sigmoid diverticulitis/mass Operation Performed: laparoscopic converted to open avila's procedure Specimen/Specimens Removed: sigmoid colon Estimated Blood Loss: EBL {In ML}: 200 Blood Products Given: N/A Drains Used: Ostomy Device Post-Op Condition: Good Date of Surgery/Procedure: 02/18/18 Time of Surgery/Procedure: 18:23
[2018-02-18] MEDS ORDERED: HYDROmorphone 0.5 mg/0.5 ml ISec IVP PRN (18:58)
[2018-02-18] MEDS ORDERED: Naloxone 0.4 mg/ml Inj (Adult) IVP PRN (18:59)
[2018-02-19] MEDS: Lactated Ringer's 1,000 ML IV SCH ×6 (01:37→21:12)
[2018-02-19 06:02] LABS: HEMOGLOBIN 13.7 g/dL (12.0-18.0); MEAN CELL VOLUME 86.2 fl (80.0-94.0); MEAN CORPUSCULAR HEMOGLOBIN 27.8 pg (27.0-31.0); MEAN CORPUSCULAR HGB CONC 32.2 g/dL (33.0-37.0); RBC 4.95 Mil/uL (4.40-5.90); RED CELL DISTRIBUTION WIDTH 14.3 % (11.5-14.5); WHITE BLOOD COUNT 4.7 K/uL (4.8-10.8)
[2018-02-19 06:14] LABS: BLOOD UREA NITROGEN 24 mg/dl (9-20); GFR NON-AFRICAN AMERICAN 58
--- NOTE | 2018-02-19 07:13 | CP.PCM.PN ---
Subjective - Date & Time of Evaluation Date of Evaluation: 02/19/18 Time of Evaluation: 07:10 - Subjective Subjective: Surgery: Dr. Lowery Pt seen and examined. No acute events overnight. Pain controlled. No N/V. Objective - Vital Signs/Intake and Output Vital Signs (last 24 hours): Temp Pulse Resp BP Pulse Ox 97.8 F 76 21 124/76 95 02/19/18 05:00 02/19/18 05:00 02/19/18 05:00 02/19/18 05:00 02/19/18 05:00 Intake and Output: 02/19/18 02/19/18 06:59 18:59 Intake Total 3000 Output Total 1100 Balance 1900 - Medications Medications: Current Medications Albuterol (Ventolin Hfa 90 Mcg/Actuation (8 G)) 1 puff IH BID PRN PRN Reason: cough, sob Docusate Sodium (Colace) 100 mg PO BID PRN PRN Reason: Constipation Last Admin: 02/14/18 16:23 Dose: 100 mg Enoxaparin Sodium (Lovenox) 40 mg SC DAILY [facility]; Protocol Hydromorphone HCl (Dilaudid 0.2 Mg/Ml V[place]er S[place]) 0 mg IV PRN PRN; Protocol PRN Reason: Pain, moderate (4-7) Last Admin: 02/18/18 20:00 Dose: 0 mg Ertapenem 1 gm/ Sodium (Chloride) 100 mls @ 100 mls/hr IVPB DAILY [facility] Last Admin: 02/18/18 14:00 Dose: 100 mls Acetaminophen (Ofirmev) 100 mls @ 400 mls/hr IVPB Q6H [facility]; Protocol Stop: 02/19/18 17:46 Last Admin: 02/19/18 05:32 Dose: 400 mls/hr Lactated Ringer's (Lactated Ringer's) 1,000 mls @ 150 mls/hr IV .Q6H40M [facility] Last Admin: 02/19/18 01:37 Dose: Not Given Lactated Ringer's (Lactated Ringer's) 1,000 mls @ 250 mls/hr IV .Q4H [facility] Last Admin: 02/19/18 06:43 Dose: Not Given Lactulose (Enulose) 10 gm PO Q6 PRN PRN Reason: Constipation Metoprolol Succinate (Toprol Xl) 100 mg PO DAILY [facility] Last Admin: 02/18/18 08:55 Dose: 100 mg Naloxone HCl (Narcan) 0.1 mg IVP Q2M PRN PRN Reason: Shortness of Breath Ondansetron HCl (Zofran Inj) 4 mg IVP Q4 PRN PRN Reason: Nausea/Vomiting Last Admin: 02/17/18 06:19 Dose: 4 mg Pantoprazole Sodium (Protonix Inj) 40 mg IVP DAILY [facility] Last Admin: 02/18/18 08:53 Dose: 40 mg Polyethylene Glycol (Miralax) 17 gm PO QAM PRN PRN Reason: Constipation Last Admin: 02/13/18 09:14 Dose: 17 gm - Labs Labs: 02/19/18 05:40 02/19/18 05:40 PT 14.4 Seconds (9.8-13.1) H 02/18/18 05:40 INR 1.3 02/18/18 05:40 APTT 32.0 Seconds (25.6-37.1) 02/18/18 05:40 - Constitutional Appears: Non-toxic, No Acute Distress - Head Exam Head Exam: ATRAUMATIC, NORMOCEPHALIC - Eye Exam Eye Exam: EOMI - ENT Exam ENT Exam: Mucous Membranes Moist - Neck Exam Neck Exam: Full ROM - Respiratory Exam Respiratory Exam: NORMAL BREATHING PATTERN. absent: Accessory Muscle Use, Respiratory Distress - GI/Abdominal Exam GI & Abdominal Exam: Soft. absent: Distended, Firm, Guarding, Rigid, Tenderness, Rebound Additional comments: Stoma pink and patent w. gas in bag Dressings in place, C/D/I - Extremities Exam Extremities Exam: absent: Calf Tenderness, Pedal Edema - Neurological Exam Neurological Exam: Alert, Awake, Oriented x3 Assessment and Plan - Assessment and Plan (Free Text) Assessment: 52M w. large bowel obstruction 2/2 sigmoid diverticulitis/sigmoid mass, s/p Goins's POD#1 -Good U/O overnight, d/c silveira -D/C NGT -will start ice chips -Ivanz for one additional dose -OOB to chair / PT -encourage IS use -c/w IVF -monitor bowel fxn -dvt ppx -d/w attending Grantitis PGY2
--- NOTE | 2018-02-19 07:27 | CP.PCM.PN ---
Subjective - Date & Time of Evaluation Date of Evaluation: 02/18/18 Time of Evaluation: 10:00 - Subjective Subjective: patient remains very distended scheduled for lap today Dr fong was called for surgica opinion as per family's request. Objective - Vital Signs/Intake and Output Vital Signs (last 24 hours): Temp Pulse Resp BP Pulse Ox 97.8 F 76 21 124/76 95 02/19/18 05:00 02/19/18 05:00 02/19/18 05:00 02/19/18 05:00 02/19/18 05:00 Intake and Output: 02/19/18 02/19/18 06:59 18:59 Intake Total 3000 Output Total 1100 Balance 1900 - Medications Medications: Current Medications Albuterol (Ventolin Hfa 90 Mcg/Actuation (8 G)) 1 puff IH BID PRN PRN Reason: cough, sob Docusate Sodium (Colace) 100 mg PO BID PRN PRN Reason: Constipation Last Admin: 02/14/18 16:23 Dose: 100 mg Enoxaparin Sodium (Lovenox) 40 mg SC DAILY [facility]; Protocol Hydromorphone HCl (Dilaudid 0.2 Mg/Ml [employer]) 0 mg IV PRN PRN; Protocol PRN Reason: Pain, moderate (4-7) Last Admin: 02/18/18 20:00 Dose: 0 mg Ertapenem 1 gm/ Sodium (Chloride) 100 mls @ 100 mls/hr IVPB DAILY [facility] Stop: 02/19/18 10:01 Last Admin: 02/18/18 14:00 Dose: 100 mls Acetaminophen (Ofirmev) 100 mls @ 400 mls/hr IVPB Q6H [facility]; Protocol Stop: 02/19/18 17:46 Last Admin: 02/19/18 05:32 Dose: 400 mls/hr Lactated Ringer's (Lactated Ringer's) 1,000 mls @ 150 mls/hr IV .Q6H40M [facility] Last Admin: 02/19/18 01:37 Dose: Not Given Lactated Ringer's (Lactated Ringer's) 1,000 mls @ 250 mls/hr IV .Q4H [facility] Last Admin: 02/19/18 06:43 Dose: Not Given Lactulose (Enulose) 10 gm PO Q6 PRN PRN Reason: Constipation Metoprolol Succinate (Toprol Xl) 100 mg PO DAILY [facility] Last Admin: 02/18/18 08:55 Dose: 100 mg Naloxone HCl (Narcan) 0.1 mg IVP Q2M PRN PRN Reason: Shortness of Breath Ondansetron HCl (Zofran Inj) 4 mg IVP Q4 PRN PRN Reason: Nausea/Vomiting Last Admin: 02/17/18 06:19 Dose: 4 mg Pantoprazole Sodium (Protonix Inj) 40 mg IVP DAILY [facility] Last Admin: 02/18/18 08:53 Dose: 40 mg Polyethylene Glycol (Miralax) 17 gm PO QAM PRN PRN Reason: Constipation Last Admin: 02/13/18 09:14 Dose: 17 gm - Labs Labs: 02/19/18 05:40 02/19/18 05:40 PT 14.4 Seconds (9.8-13.1) H 02/18/18 05:40 INR 1.3 02/18/18 05:40 APTT 32.0 Seconds (25.6-37.1) 02/18/18 05:40 - Head Exam Head Exam: NORMAL INSPECTION - Eye Exam Eye Exam: Normal appearance - ENT Exam ENT Exam: Mucous Membranes Moist - Respiratory Exam Respiratory Exam: NORMAL BREATHING PATTERN - Cardiovascular Exam Cardiovascular Exam: REGULAR RHYTHM - GI/Abdominal Exam GI & Abdominal Exam: Distended, Tenderness Assessment and Plan (1) Intestinal obstruction Status: Acute (2) Diabetes mellitus type 2 in obese Status: Acute (3) HTN (hypertension) Status: Acute (4) Diverticulitis Status: Acute - Assessment and Plan (Free Text) Plan: Cont meds NPO hydrate for surgery today
[2018-02-19] MEDS: Metoprolol Succinate 100 mg XL Tab PO SCH (09:14)
[2018-02-19] MEDS: Enoxaparin 40 mg Syringe SC SCH (09:15)
[2018-02-19] MEDS ORDERED: ERTAPENEM 1 GM IVPB ONE (11:00)
[2018-02-19] MEDS ORDERED: Oxycodone/Acetaminophen 5/325 mg Tab PO PRN (18:34)
--- NOTE | 2018-02-19 18:43 | CP.PCM.PN ---
Subjective - Date & Time of Evaluation Date of Evaluation: 02/19/18 Time of Evaluation: 18:40 - Subjective Subjective: Patient doing as well as can be expected. Pain controlled. Objective - Vital Signs/Intake and Output Vital Signs (last 24 hours): Temp Pulse Resp BP Pulse Ox 98.3 F 62 18 130/84 96 02/19/18 16:11 02/19/18 16:11 02/19/18 16:11 02/19/18 16:11 02/19/18 16:11 Intake and Output: 02/19/18 02/19/18 06:59 18:59 Intake Total 3000 1500 Output Total 1100 775 Balance 1900 725 - Medications Medications: Current Medications Albuterol (Ventolin Hfa 90 Mcg/Actuation (8 G)) 1 puff IH BID PRN PRN Reason: cough, sob Docusate Sodium (Colace) 100 mg PO BID PRN PRN Reason: Constipation Last Admin: 02/14/18 16:23 Dose: 100 mg Enoxaparin Sodium (Lovenox) 40 mg SC DAILY [facility]; Protocol Last Admin: 02/19/18 09:15 Dose: 40 mg Hydromorphone HCl (Dilaudid 0.2 Mg/Ml Lpn [employer]) 0 mg IV PRN PRN; Protocol PRN Reason: Pain, moderate (4-7) Last Admin: 02/18/18 20:00 Dose: 0 mg Lactated Ringer's (Lactated Ringer's) 1,000 mls @ 150 mls/hr IV .Q6H40M [facility] Last Admin: 02/19/18 13:29 Dose: 150 mls/hr Lactulose (Enulose) 10 gm PO Q6 PRN PRN Reason: Constipation Metoprolol Succinate (Toprol Xl) 100 mg PO DAILY [facility] Last Admin: 02/19/18 09:14 Dose: 100 mg Naloxone HCl (Narcan) 0.1 mg IVP Q2M PRN PRN Reason: Shortness of Breath Ondansetron HCl (Zofran Inj) 4 mg IVP Q4 PRN PRN Reason: Nausea/Vomiting Last Admin: 02/17/18 06:19 Dose: 4 mg Oxycodone/Acetaminophen (Percocet 5/325 Mg Tab) 2 tab PO Q4 PRN PRN Reason: Pain, moderate (4-7) Stop: 02/22/18 18:35 Pantoprazole Sodium (Protonix Inj) 40 mg IVP DAILY [facility] Last Admin: 02/19/18 09:11 Dose: 40 mg Polyethylene Glycol (Miralax) 17 gm PO QAM PRN PRN Reason: Constipation Last Admin: 02/13/18 09:14 Dose: 17 gm - Labs Labs: 02/19/18 05:40 02/19/18 05:40 PT 14.4 Seconds (9.8-13.1) H 02/18/18 05:40 INR 1.3 02/18/18 05:40 APTT 32.0 Seconds (25.6-37.1) 02/18/18 05:40 - Head Exam Head Exam: ATRAUMATIC - ENT Exam ENT Exam: Normal Exam - Neck Exam Neck Exam: Full ROM - Respiratory Exam Respiratory Exam: Clear to Ausculation Bilateral - Cardiovascular Exam Cardiovascular Exam: REGULAR RHYTHM - GI/Abdominal Exam GI & Abdominal Exam: Distended, Tenderness Assessment and Plan (1) Colon obstruction Assessment & Plan: surgical findings c/w what was expected based on CT and colonoscopy results. Surgery was warranted to relieve colonic obstruction. Recuperating as would be expected. Status: Acute
[2018-02-20] MEDS: Lactated Ringer's 1,000 ML IV SCH ×4 (05:02→23:50)
[2018-02-20] MEDS: Enoxaparin 40 mg Syringe SC SCH (09:25)
[2018-02-20] MEDS: Metoprolol Succinate 100 mg XL Tab PO SCH (09:27)
--- NOTE | 2018-02-20 10:58 | CP.PCM.PN ---
Subjective - Date & Time of Evaluation Date of Evaluation: 02/20/18 Time of Evaluation: 10:05 - Subjective Subjective: General Surgery progress note: Dr. Lowery Patient seen and examined this am at bedside. DESMOND per nursing. Patient states that his pain is well controlled and that he has been able to get out of bed to the bathroom and around his room. He is voiding appropriately. He is having output from the stoma site. He denies PRYOR, CP, SOB, n/v, extremity pain or weakness. Objective - Vital Signs/Intake and Output Vital Signs (last 24 hours): Temp Pulse Resp BP Pulse Ox 99.2 F 74 22 148/84 96 02/20/18 08:54 02/20/18 08:54 02/20/18 08:54 02/20/18 08:54 02/20/18 08:54 Intake and Output: 02/20/18 02/20/18 06:59 18:59 Intake Total 1800 Output Total 50 Balance 1750 - Medications Medications: Current Medications Albuterol (Ventolin Hfa 90 Mcg/Actuation (8 G)) 1 puff IH BID PRN PRN Reason: cough, sob Docusate Sodium (Colace) 100 mg PO BID PRN PRN Reason: Constipation Last Admin: 02/14/18 16:23 Dose: 100 mg Enoxaparin Sodium (Lovenox) 40 mg SC DAILY [facility]; Protocol Last Admin: 02/20/18 09:25 Dose: 40 mg Hydromorphone HCl (Dilaudid) 1 mg IVP Q4 PRN PRN Reason: Pain, severe (8-10) Lactated Ringer's (Lactated Ringer's) 1,000 mls @ 150 mls/hr IV .Q6H40M [facility] Last Admin: 02/20/18 05:02 Dose: 150 mls/hr Lactulose (Enulose) 10 gm PO Q6 PRN PRN Reason: Constipation Metoprolol Succinate (Toprol Xl) 100 mg PO DAILY [facility] Last Admin: 02/20/18 09:27 Dose: 100 mg Naloxone HCl (Narcan) 0.1 mg IVP Q2M PRN PRN Reason: Shortness of Breath Ondansetron HCl (Zofran Inj) 4 mg IVP Q4 PRN PRN Reason: Nausea/Vomiting Last Admin: 02/17/18 06:19 Dose: 4 mg Oxycodone/Acetaminophen (Percocet 5/325 Mg Tab) 2 tab PO Q4 PRN PRN Reason: Pain, moderate (4-7) Stop: 02/22/18 18:35 Pantoprazole Sodium (Protonix Inj) 40 mg IVP DAILY [facility] Last Admin: 02/20/18 09:26 Dose: 40 mg Polyethylene Glycol (Miralax) 17 gm PO QAM PRN PRN Reason: Constipation Last Admin: 02/13/18 09:14 Dose: 17 gm - Labs Labs: 02/19/18 05:40 02/19/18 05:40 PT 14.4 Seconds (9.8-13.1) H 02/18/18 05:40 INR 1.3 02/18/18 05:40 APTT 32.0 Seconds (25.6-37.1) 02/18/18 05:40 - Constitutional Appears: Well, Toxic, No Acute Distress - Head Exam Head Exam: ATRAUMATIC, NORMOCEPHALIC - Eye Exam Eye Exam: EOMI, Normal appearance - ENT Exam ENT Exam: Mucous Membranes Moist - Respiratory Exam Respiratory Exam: NORMAL BREATHING PATTERN - Cardiovascular Exam Cardiovascular Exam: REGULAR RHYTHM - GI/Abdominal Exam GI & Abdominal Exam: Soft, Tenderness. absent: Distended, Guarding Additional comments: Incision site is clean and dry, packing and dressing changed at bedside, willy in place, ostomy site is pink patent and productive of stool - Extremities Exam Extremities Exam: absent: Calf Tenderness, Pedal Edema - Neurological Exam Neurological Exam: Alert, Awake, Oriented x3 - Psychiatric Exam Psychiatric exam: Normal Affect, Normal Mood - Skin Skin Exam: Dry, Normal Color, Warm Additional comments: incision site is clean and dry with willy in place, packing and dressing changed at bedside Assessment and Plan - Assessment and Plan (Free Text) Assessment: 52M w. large bowel obstruction 2/2 sigmoid diverticulitis/sigmoid mass, s/p Goins's POD#2 Plan: advance slowly to CLD c/w abdominal binder, reposition to accommodate colostomy encourage OOB and ambulation monitor for continued bowel function and n/v plan for packing change and possible D/c with VNS on Sunday d/w Dr. Sebastián Ruth, PGY 1
--- NOTE | 2018-02-20 13:36 | CP.PCM.PN ---
Subjective - Date & Time of Evaluation Date of Evaluation: 02/20/18 Time of Evaluation: 13:32 - Subjective Subjective: GI note Pt seen and examined. No acute events. Gas and liquid stool in the bag. Denies fever, nausea , vomiting, CP, SOB. Voiding, OOB. Objective - Vital Signs/Intake and Output Vital Signs (last 24 hours): Temp Pulse Resp BP Pulse Ox 99.2 F 74 22 148/84 96 02/20/18 08:54 02/20/18 08:54 02/20/18 08:54 02/20/18 08:54 02/20/18 08:54 Intake and Output: 02/20/18 02/20/18 06:59 18:59 Intake Total 1800 Output Total 50 Balance 1750 - Medications Medications: Current Medications Albuterol (Ventolin Hfa 90 Mcg/Actuation (8 G)) 1 puff IH BID PRN PRN Reason: cough, sob Docusate Sodium (Colace) 100 mg PO BID PRN PRN Reason: Constipation Last Admin: 02/14/18 16:23 Dose: 100 mg Enoxaparin Sodium (Lovenox) 40 mg SC DAILY [facility]; Protocol Last Admin: 02/20/18 09:25 Dose: 40 mg Hydromorphone HCl (Dilaudid) 1 mg IVP Q4 PRN PRN Reason: Pain, severe (8-10) Lactated Ringer's (Lactated Ringer's) 1,000 mls @ 150 mls/hr IV .Q6H40M [facility] Last Admin: 02/20/18 11:48 Dose: 150 mls/hr Lactulose (Enulose) 10 gm PO Q6 PRN PRN Reason: Constipation Metoprolol Succinate (Toprol Xl) 100 mg PO DAILY [facility] Last Admin: 02/20/18 09:27 Dose: 100 mg Naloxone HCl (Narcan) 0.1 mg IVP Q2M PRN PRN Reason: Shortness of Breath Ondansetron HCl (Zofran Inj) 4 mg IVP Q4 PRN PRN Reason: Nausea/Vomiting Last Admin: 02/17/18 06:19 Dose: 4 mg Oxycodone/Acetaminophen (Percocet 5/325 Mg Tab) 2 tab PO Q4 PRN PRN Reason: Pain, moderate (4-7) Stop: 02/22/18 18:35 Pantoprazole Sodium (Protonix Inj) 40 mg IVP DAILY [facility] Last Admin: 02/20/18 09:26 Dose: 40 mg Polyethylene Glycol (Miralax) 17 gm PO QAM PRN PRN Reason: Constipation Last Admin: 02/13/18 09:14 Dose: 17 gm - Labs Labs: 02/19/18 05:40 02/19/18 05:40 PT 14.4 Seconds (9.8-13.1) H 02/18/18 05:40 INR 1.3 02/18/18 05:40 APTT 32.0 Seconds (25.6-37.1) 02/18/18 05:40 - Constitutional Appears: No Acute Distress - Head Exam Head Exam: ATRAUMATIC, NORMAL INSPECTION, NORMOCEPHALIC - Eye Exam Eye Exam: EOMI, Normal appearance, PERRL Pupil Exam: NORMAL ACCOMODATION, PERRL - ENT Exam ENT Exam: Mucous Membranes Moist - Neck Exam Neck Exam: Full ROM, Normal Inspection. absent: Lymphadenopathy - Respiratory Exam Respiratory Exam: NORMAL BREATHING PATTERN - Cardiovascular Exam Cardiovascular Exam: REGULAR RHYTHM - GI/Abdominal Exam GI & Abdominal Exam: Distended, Soft, Tenderness. absent: Firm Additional comments: Stoma in place pink gas and liquid stool - Extremities Exam Extremities Exam: Full ROM - Back Exam Back Exam: NORMAL INSPECTION - Neurological Exam Neurological Exam: Alert, Awake, Oriented x3 - Psychiatric Exam Psychiatric exam: Normal Affect, Normal Mood - Skin Skin Exam: Dry, Intact, Normal Color, Warm Assessment and Plan - Assessment and Plan (Free Text) Assessment: Bolwe obstruction S/P avila's procedure Advance diet as tolerated Monitor stoma output surgical findings c/w what was expected based on CT and colonoscopy results. Surgery was warranted to relieve colonic obstruction. Recuperating as would be expected. Musa Johnson
[2018-02-20] MEDS: Alum-Mag Hydrox-Simethicone Susp (30 mL) PO ONE ×2 (18:32→18:55)
[2018-02-21] MEDS: Lactated Ringer's 1,000 ML IV SCH ×4 (02:14→13:57)
[2018-02-21] MEDS ORDERED: Alum-Mag Hydrox-Simethicone Susp (30 mL) PO ONE (06:20)
[2018-02-21 07:00] LABS: BASO % 0.4 % (0.0-2.0); EOS % 0.7 % (0.0-4.0); LYMPH # 0.8 K/uL (1.0-4.3); LYMPH % 12.1 % (20.0-40.0); MEAN CELL VOLUME 88.6 fl (80.0-94.0); MEAN CORPUSCULAR HGB CONC 31.6 g/dL (33.0-37.0); MEAN PLATELET VOLUME 8.2 fl (7.2-11.7); MONO # 0.9 K/uL (0.0-0.8); NEUT % 73.8 % (50.0-75.0); NRBC % 0.3 % (0.0-0.0); RBC 4.28 Mil/uL (4.40-5.90); RED CELL DISTRIBUTION WIDTH 14.4 % (11.5-14.5); WHITE BLOOD COUNT 6.8 K/uL (4.8-10.8)
[2018-02-21 07:07] LABS: ALB/GLOB RATIO 0.9 (1.0-2.1); ALT/SGPT 39 U/L (21-72); AST/SGOT 42 U/L (17-59); BLOOD UREA NITROGEN 15 mg/dl (9-20); CALCIUM 8.6 mg/dL (8.4-10.2); GFR NON-AFRICAN AMERICAN > 60
--- NOTE | 2018-02-21 07:33 | CP.PCM.PN ---
Subjective - Date & Time of Evaluation Date of Evaluation: 02/21/18 Time of Evaluation: 07:30 - Subjective Subjective: Surgery: Dr. Lowery Pt seen and examined. Multiple episodes of emesis overnight. Pain controlled. + Stool output in colostomy. Objective - Vital Signs/Intake and Output Vital Signs (last 24 hours): Temp Pulse Resp BP Pulse Ox 98.8 F 69 20 143/86 95 02/20/18 23:56 02/20/18 23:56 02/20/18 23:56 02/20/18 23:56 02/20/18 23:56 Intake and Output: 02/21/18 02/21/18 06:59 18:59 Intake Total 2140 Output Total 50 Balance -50 2140 - Medications Medications: Current Medications Albuterol (Ventolin Hfa 90 Mcg/Actuation (8 G)) 1 puff IH BID PRN PRN Reason: cough, sob Docusate Sodium (Colace) 100 mg PO BID PRN PRN Reason: Constipation Last Admin: 02/14/18 16:23 Dose: 100 mg Enoxaparin Sodium (Lovenox) 40 mg SC DAILY [facility]; Protocol Last Admin: 02/20/18 09:25 Dose: 40 mg Hydromorphone HCl (Dilaudid) 1 mg IVP Q4 PRN PRN Reason: Pain, severe (8-10) Last Admin: 02/20/18 16:47 Dose: 1 mg Lactated Ringer's (Lactated Ringer's) 1,000 mls @ 150 mls/hr IV .Q6H40M [facility] Last Admin: 02/21/18 06:30 Dose: Not Given Lactulose (Enulose) 10 gm PO Q6 PRN PRN Reason: Constipation Metoprolol Succinate (Toprol Xl) 100 mg PO DAILY [facility] Last Admin: 02/20/18 09:27 Dose: 100 mg Naloxone HCl (Narcan) 0.1 mg IVP Q2M PRN PRN Reason: Shortness of Breath Ondansetron HCl (Zofran Inj) 4 mg IVP Q4 PRN PRN Reason: Nausea/Vomiting Last Admin: 02/21/18 06:12 Dose: 4 mg Oxycodone/Acetaminophen (Percocet 5/325 Mg Tab) 2 tab PO Q4 PRN PRN Reason: Pain, moderate (4-7) Stop: 02/22/18 18:35 Pantoprazole Sodium (Protonix Inj) 40 mg IVP DAILY [facility] Last Admin: 02/20/18 09:26 Dose: 40 mg Polyethylene Glycol (Miralax) 17 gm PO QAM PRN PRN Reason: Constipation Last Admin: 02/13/18 09:14 Dose: 17 gm - Labs Labs: 02/21/18 05:55 02/21/18 05:55 PT 14.4 Seconds (9.8-13.1) H 02/18/18 05:40 INR 1.3 02/18/18 05:40 APTT 32.0 Seconds (25.6-37.1) 02/18/18 05:40 - Constitutional Appears: Non-toxic, No Acute Distress - Head Exam Head Exam: ATRAUMATIC, NORMOCEPHALIC - Eye Exam Eye Exam: EOMI - ENT Exam ENT Exam: Mucous Membranes Moist - Neck Exam Neck Exam: Full ROM - Respiratory Exam Respiratory Exam: NORMAL BREATHING PATTERN. absent: Accessory Muscle Use, Respiratory Distress - GI/Abdominal Exam GI & Abdominal Exam: Soft. absent: Distended, Firm, Guarding, Rigid, Tenderness Additional comments: Stoma pink/patent + loose brown stool Midline incision w. packing - Extremities Exam Extremities Exam: absent: Calf Tenderness, Pedal Edema - Neurological Exam Neurological Exam: Alert, Awake, Oriented x3 Assessment and Plan - Assessment and Plan (Free Text) Assessment: 52M w. large bowel obstruction, POD# 3 [place] -NPO for now -c/w IVF -consider CLD this afternoon if nausea resolved -Pain control -OOB to chair / ambulate -DVT ppx -d/w attending Grantitis PGY4
[2018-02-21] MEDS: Metoprolol Succinate 100 mg XL Tab PO SCH (08:45)
[2018-02-21] MEDS: Enoxaparin 40 mg Syringe SC SCH (10:55)
[2018-02-21] MEDS ORDERED: Alum-Mag Hydrox-Simethicone Susp (30 mL) PO PRN (12:01)
[2018-02-21] MEDS ORDERED: Simethicone 40 mg/0.6 ml Liquid (30 ml) PO PRN (12:09)
--- NOTE | 2018-02-21 19:02 | OP ---
PROCEDURE DATE: 02/18/2018 PREOPERATIVE DIAGNOSES: Large bowel obstruction and diverticulitis. POSTOPERATIVE DIAGNOSES: Large bowel obstruction and diverticulitis. PROCEDURES: 1. Exploratory laparotomy. 2. Sigmoidectomy. 3. Mobilization of splenic flexure. 4. End colostomy. 5. Enterolysis. SURGEON: Ming Lowery M.D. ANESTHESIA: General endotracheal. DESCRIPTION OF THE PROCEDURE: The patient was brought into the operating room and placed on the operating table in a supine position. After smooth induction of general endotracheal anesthesia, Venodyne boots were placed on both legs, and prophylactic antibiotics were given. The entire abdomen was prepped and draped in the usual sterile fashion. Using a #15 blade, a small incision was performed in the supraumbilical midline, and a Veress needle was inserted, and pneumoperitoneum was generated. A 0-degree, 5-mm laparoscope video camera was mounted on a Visiport and inserted through the abdominal wall and through the successful layers of tissue into the abdominal cavity. The obturator was removed. The port was connected to the CO2 tank, and the camera was changed to 5-mm 30-degree. The abdomen was then inspected. Multiple dense adhesions were encountered, mostly on the left lower quadrant where the left colon appeared to be strapped and anchored to the lateral pelvic and abdominal joyce. Three more 5-mm ports were inserted in an attempt to perform the surgery laparoscopically using Endo Nies attached to Bovie electrocautery and a 5-mm LigaSure. Unfortunately, the sigmoid colon appeared to be fairly adherent to the left lateral abdominal wall. In order to avoid any potential collateral damage, it was decided to convert this laparoscopic surgery to an open laparotomy after attempting to perform laparoscopic surgery for more than 30 minutes. A #10-blade was used to perform infraumbilical midline incision all the way down to pubis. The incision was brought down to subcutaneous tissue using Bovie electrocautery. The linea alba was incised, and the peritoneal cavity was accessed. An extensive enterolysis was performed to expose the abdominal contents. The small bowel was very distended, and it necessitated a venting enterotomy, and the succus and air was aspirated from the proximal and distal small bowel, after placing a purse string stitch using a 0 silk and advancing an NG tube connected to suction. Upon retrieving over a liter of succus and having the proximal bowel decompressed, the NG tube was removed from the enterotomy, and the enterotomy was closed with interrupted 0 silk sutures. The Bookwalter was placed in order to have better exposure of the abdominal cavity contents. The sigmoid colon appeared to be fairly adherent to the left lateral abdominal wall and requiring tedious mobilization, which resulted in removing the sigmoid colon with part of the abdominal wall but while visualizing and preserving the ureter. The sigmoid colon appeared to be inflamed, thickened and narrowed. The LETICIA 75 green stapler was fired at the border between the descending colon and the sigmoid colon. After dissecting the mesocolon free from the attachments of the retroperitoneum all the way to peritoneal reflection, a TA 60 green stapler was fired across the proximal rectum, and the corresponding mesocolon was secured in a sequential fashion using a 10-mm LigaSure. The specimen was removed from the operating field and sent to Pathology, appropriately labelled for permanent sections. There was a mismatch between the caliber of the large bowel which was filled with stool and the rectum at a ratio of 3:1; therefore, it was decided that it was not safe to perform primary anastomosis, and an end-colostomy was performed by cutting disk of the skin and then dissecting through the subcutaneous tissue and making a cross-like incision of the fascia in a muscle-sparing fashion, reaching through the transversalis fascia into the abdominal cavity. A Jumana was used to retrieve the colon through the opening. The midline incision was closed with a continuous #1 loop PDS, which was reinforced by internal retention sutures using a #1 PDS. The skin was closed with willy, and the opening between the willy was packed with 1-inch Iodoform gauze. Sterile dressing was applied. The colostomy was matured by using a 2-0 silk and stitching together the full-thickness colonic wall to the dermis of the colostomy site. An ostomy bag was applied. At the end of the surgery, the counts of instruments, gauze and needles were correct x2. The patient tolerated the surgery well and was transferred in stable condition to the recovery room. Ming Lowery MD
[2018-02-21] MEDS: Simethicone 80 mg Chewtab PO PRN (21:53)
[2018-02-22] MEDS: Simethicone 80 mg Chewtab PO PRN (05:54)
[2018-02-22 06:42] LABS: BASO % 0.3 % (0.0-2.0); EOS # 0.1 K/uL (0.0-0.7); EOS % 1.4 % (0.0-4.0); HEMOGLOBIN 12.2 g/dL (12.0-18.0); LYMPH # 1.1 K/uL (1.0-4.3); LYMPH % 15.5 % (20.0-40.0); MEAN CELL VOLUME 88.7 fl (80.0-94.0); MEAN CORPUSCULAR HEMOGLOBIN 28.2 pg (27.0-31.0); MEAN CORPUSCULAR HGB CONC 31.8 g/dL (33.0-37.0); MEAN PLATELET VOLUME 8.5 fl (7.2-11.7); MONO # 0.6 K/uL (0.0-0.8); MONO % 9.3 % (0.0-10.0); NEUT % 73.5 % (50.0-75.0); NRBC % 0.2 % (0.0-0.0); RBC 4.32 Mil/uL (4.40-5.90); RED CELL DISTRIBUTION WIDTH 14.6 % (11.5-14.5); WHITE BLOOD COUNT 6.9 K/uL (4.8-10.8)
[2018-02-22 06:59] LABS: ALB/GLOB RATIO 0.8 (1.0-2.1); ALBUMIN 2.9 g/dL (3.5-5.0); ALT/SGPT 36 U/L (21-72); AST/SGOT 40 U/L (17-59); BLOOD UREA NITROGEN 14 mg/dl (9-20); CALCIUM 8.3 mg/dL (8.4-10.2); GFR NON-AFRICAN AMERICAN > 60
--- NOTE | 2018-02-22 08:10 | CP.PCM.PN ---
Subjective - Date & Time of Evaluation Date of Evaluation: 02/22/18 Time of Evaluation: 08:08 - Subjective Subjective: Surgery: Dr. Lowery Pt seen and examined. No acute events overnight. Tolerating clear liquid diet. No N/V. + Stool output. Ambulating. Objective - Vital Signs/Intake and Output Vital Signs (last 24 hours): Temp Pulse Resp BP Pulse Ox 98.8 F 60 18 158/80 H 96 02/21/18 23:40 02/21/18 23:40 02/21/18 23:40 02/21/18 23:40 02/21/18 23:40 Intake and Output: 02/22/18 02/22/18 06:59 18:59 Intake Total 720 Output Total 1575 Balance -855 - Medications Medications: Current Medications Albuterol (Ventolin Hfa 90 Mcg/Actuation (8 G)) 1 puff IH BID PRN PRN Reason: cough, sob Docusate Sodium (Colace) 100 mg PO BID PRN PRN Reason: Constipation Last Admin: 02/14/18 16:23 Dose: 100 mg Enoxaparin Sodium (Lovenox) 40 mg SC DAILY [facility]; Protocol Last Admin: 02/21/18 10:55 Dose: 40 mg Hydromorphone HCl (Dilaudid) 1 mg IVP Q4 PRN PRN Reason: Pain, severe (8-10) Last Admin: 02/21/18 18:41 Dose: 1 mg Lactated Ringer's (Lactated Ringer's) 1,000 mls @ 150 mls/hr IV .Q6H40M [facility] Last Admin: 02/21/18 13:57 Dose: Not Given Lactulose (Enulose) 10 gm PO Q6 PRN PRN Reason: Constipation Metoclopramide HCl (Reglan) 5 mg PO ACHS [facility] Last Admin: 02/21/18 21:52 Dose: 5 mg Metoprolol Succinate (Toprol Xl) 100 mg PO DAILY [facility] Last Admin: 02/21/18 08:45 Dose: 100 mg Naloxone HCl (Narcan) 0.1 mg IVP Q2M PRN PRN Reason: Shortness of Breath Ondansetron HCl (Zofran Inj) 4 mg IVP Q4 PRN PRN Reason: Nausea/Vomiting Last Admin: 02/21/18 18:37 Dose: 4 mg Oxycodone/Acetaminophen (Percocet 5/325 Mg Tab) 2 tab PO Q4 PRN PRN Reason: Pain, moderate (4-7) Stop: 02/22/18 18:35 Pantoprazole Sodium (Protonix Inj) 40 mg IVP DAILY [facility] Last Admin: 02/21/18 08:45 Dose: 40 mg Polyethylene Glycol (Miralax) 17 gm PO QAM PRN PRN Reason: Constipation Last Admin: 02/13/18 09:14 Dose: 17 gm Simethicone (Mylicon Chew Tab) 80 mg PO Q6 PRN PRN Reason: Flatulence Last Admin: 02/22/18 05:54 Dose: 80 mg - Labs Labs: 02/22/18 05:40 02/22/18 05:40 PT 14.4 Seconds (9.8-13.1) H 02/18/18 05:40 INR 1.3 02/18/18 05:40 APTT 32.0 Seconds (25.6-37.1) 02/18/18 05:40 - Constitutional Appears: Non-toxic, No Acute Distress - Head Exam Head Exam: ATRAUMATIC, NORMOCEPHALIC - Eye Exam Eye Exam: EOMI - ENT Exam ENT Exam: Mucous Membranes Moist - Neck Exam Neck Exam: Full ROM - Respiratory Exam Respiratory Exam: NORMAL BREATHING PATTERN. absent: Accessory Muscle Use, Respiratory Distress - GI/Abdominal Exam GI & Abdominal Exam: Soft. absent: Distended, Firm, Guarding, Rigid, Tenderness Additional comments: stoma pink and patent with stool output midline incision w. packing, clean no drainage - Extremities Exam Extremities Exam: absent: Calf Tenderness, Pedal Edema - Neurological Exam Neurological Exam: Alert, Awake, Oriented x3 Assessment and Plan - Assessment and Plan (Free Text) Assessment: 52M w. large bowel obstruction, POD# 4 Hartmans -Will advance diet to full liquid -change packing q2 days -encourage OOB and ambulation -c/w DVT ppx -d/w attending Zemaitis PGY4
[2018-02-22] MEDS: Metoprolol Succinate 100 mg XL Tab PO SCH (08:41)
[2018-02-22] MEDS: Enoxaparin 40 mg Syringe SC SCH (08:41)
[2018-02-22] MEDS: Lactated Ringer's 1,000 ML IV SCH (09:30)
--- NOTE | 2018-02-23 08:22 | CP.PCM.PN ---
Subjective - Date & Time of Evaluation Date of Evaluation: 02/23/18 Time of Evaluation: 08:20 - Subjective Subjective: Surgery: Dr. Lowery Pt seen and examined. No acute events overnight. Tolerating soft diet. No N/V. +Stool output. Ambulating w. out difficulty. Objective - Vital Signs/Intake and Output Vital Signs (last 24 hours): Temp Pulse Resp BP Pulse Ox 99.6 F 67 18 142/80 95 02/23/18 00:00 02/23/18 00:00 02/23/18 00:00 02/23/18 00:00 02/23/18 00:00 Intake and Output: 02/23/18 02/23/18 06:59 18:59 Output Total 650 250 Balance -650 -250 - Medications Medications: Current Medications Albuterol (Ventolin Hfa 90 Mcg/Actuation (8 G)) 1 puff IH BID PRN PRN Reason: cough, sob Chlorpromazine (Thorazine) 25 mg PO Q6 [facility] Last Admin: 02/23/18 03:22 Dose: 25 mg Docusate Sodium (Colace) 100 mg PO BID PRN PRN Reason: Constipation Last Admin: 02/14/18 16:23 Dose: 100 mg Enoxaparin Sodium (Lovenox) 40 mg SC DAILY [facility]; Protocol Last Admin: 02/22/18 08:41 Dose: 40 mg Lactulose (Enulose) 10 gm PO Q6 PRN PRN Reason: Constipation Metoclopramide HCl (Reglan) 5 mg PO [facility] Last Admin: 02/22/18 21:17 Dose: 5 mg Metoprolol Succinate (Toprol Xl) 100 mg PO DAILY [facility] Last Admin: 02/22/18 08:41 Dose: 100 mg Naloxone HCl (Narcan) 0.1 mg IVP Q2M PRN PRN Reason: Shortness of Breath Ondansetron HCl (Zofran Inj) 4 mg IVP Q4 PRN PRN Reason: Nausea/Vomiting Last Admin: 02/21/18 18:37 Dose: 4 mg Pantoprazole Sodium (Protonix Inj) 40 mg IVP DAILY [facility] Last Admin: 02/22/18 08:40 Dose: 40 mg Polyethylene Glycol (Miralax) 17 gm PO QAM PRN PRN Reason: Constipation Last Admin: 11/07/18 09:14 Dose: 17 gm Simethicone (Mylicon Chew Tab) 80 mg PO Q6 PRN PRN Reason: Flatulence Last Admin: 02/22/18 05:54 Dose: 80 mg - Labs Labs: 02/22/18 05:40 02/22/18 05:40 PT 14.4 Seconds (9.8-13.1) H 02/18/18 05:40 INR 1.3 02/18/18 05:40 APTT 32.0 Seconds (25.6-37.1) 02/18/18 05:40 - Constitutional Appears: Non-toxic, No Acute Distress - Head Exam Head Exam: ATRAUMATIC, NORMOCEPHALIC - Eye Exam Eye Exam: EOMI - ENT Exam ENT Exam: Mucous Membranes Moist - Neck Exam Neck Exam: Full ROM - Respiratory Exam Respiratory Exam: NORMAL BREATHING PATTERN. absent: Accessory Muscle Use, R espiratory Distress - Cardiovascular Exam Cardiovascular Exam: REGULAR RHYTHM - GI/Abdominal Exam GI & Abdominal Exam: Soft. absent: Distended, Firm, Guarding, Rigid, Tenderness, Rebound Additional comments: midline incision w. wide spaced willy, minimal serous drainage, stoma pink and patent w soft brown stool - Extremities Exam Extremities Exam: absent: Calf Tenderness, Pedal Edema - Neurological Exam Neurological Exam: Alert, Awake, Oriented x3 Assessment and Plan - Assessment and Plan (Free Text) Assessment: 52M w. large bowel obstruction, POD# 5 Hartmans -Packing no longer needed for midline incision, daily dressing changes -Pt will need ostomy care education -Pt is clear for D/C from surgical standpoint when he is capable of managing ostomy on his own -encourage OOB and IS use in interim -d/w attending Grantitis PGY4
[2018-02-23] MEDS: Enoxaparin 40 mg Syringe SC SCH (11:20)
[2018-02-23] MEDS: Metoprolol Succinate 100 mg XL Tab PO SCH (11:22)
[2018-02-23] MEDS ORDERED: Povidone Iodine Topical 10% Sol ONE (18:37)
--- NOTE | 2018-02-24 07:39 | CP.PCM.PN ---
Subjective - Date & Time of Evaluation Date of Evaluation: 02/24/18 Time of Evaluation: 07:36 - Subjective Subjective: Surgery PT seen and examined. Dressing changed. Nurse has been educating on how to do dressing change and stoma change. Large amount of stool from stoma. Objective - Vital Signs/Intake and Output Vital Signs (last 24 hours): Temp Pulse Resp BP Pulse Ox 99.1 F 74 20 118/79 95 02/23/18 23:37 02/23/18 23:37 02/23/18 23:37 02/23/18 23:37 02/23/18 23:37 Intake and Output: 02/24/18 02/24/18 06:59 18:59 Intake Total 650 Output Total 4450 Balance -3800 - Medications Medications: Current Medications Albuterol (Ventolin Hfa 90 Mcg/Actuation (8 G)) 1 puff IH BID PRN PRN Reason: cough, sob Chlorpromazine (Thorazine) 25 mg PO Q6 [facility] Last Admin: 02/24/18 04:16 Dose: 25 mg Docusate Sodium (Colace) 100 mg PO BID PRN PRN Reason: Constipation Last Admin: 02/14/18 16:23 Dose: 100 mg Enoxaparin Sodium (Lovenox) 40 mg SC DAILY [facility]; Protocol Last Admin: 02/23/18 11:20 Dose: 40 mg Lactulose (Enulose) 10 gm PO Q6 PRN PRN Reason: Constipation Metoclopramide HCl (Reglan) 5 mg PO [facility] Last Admin: 02/23/18 21:12 Dose: 5 mg Metoprolol Succinate (Toprol Xl) 100 mg PO DAILY [facility] Last Admin: 02/23/18 11:22 Dose: 100 mg Naloxone HCl (Narcan) 0.1 mg IVP Q2M PRN PRN Reason: Shortness of Breath Ondansetron HCl (Zofran Inj) 4 mg IVP Q4 PRN PRN Reason: Nausea/Vomiting Last Admin: 02/23/18 17:13 Dose: 4 mg Pantoprazole Sodium (Protonix Inj) 40 mg IVP DAILY [facility] Last Admin: 02/23/18 11:21 Dose: 40 mg Polyethylene Glycol (Miralax) 17 gm PO QAM PRN PRN Reason: Constipation Last Admin: 02/13/18 09:14 Dose: 17 gm Simethicone (Mylicon Chew Tab) 80 mg PO Q6 PRN PRN Reason: Flatulence Last Admin: 02/22/18 05:54 Dose: 80 mg - Labs Labs: 02/22/18 05:40 02/22/18 05:40 PT 14.4 Seconds (9.8-13.1) H 02/18/18 05:40 INR 1.3 02/18/18 05:40 APTT 32.0 Seconds (25.6-37.1) 02/18/18 05:40 - Constitutional Appears: No Acute Distress - Head Exam Head Exam: ATRAUMATIC, NORMAL INSPECTION, NORMOCEPHALIC - Eye Exam Eye Exam: EOMI, Normal appearance, PERRL Pupil Exam: NORMAL ACCOMODATION, PERRL - ENT Exam ENT Exam: Mucous Membranes Moist, Normal Exam - Neck Exam Neck Exam: Full ROM - Respiratory Exam Respiratory Exam: NORMAL BREATHING PATTERN - Cardiovascular Exam Cardiovascular Exam: REGULAR RHYTHM - GI/Abdominal Exam GI & Abdominal Exam: Soft. absent: Distended, Firm, Guarding, Rigid, Tenderness Additional comments: Stoma has large amount of stool - Exam Exam: NORMAL INSPECTION - Extremities Exam Extremities Exam: Full ROM, Normal Capillary Refill, Normal Inspection. absent: Joint Swelling, Pedal Edema - Back Exam Back Exam: NORMAL INSPECTION - Neurological Exam Neurological Exam: Alert, Awake, CN II-XII Intact, Normal Gait, Oriented x3 - Psychiatric Exam Psychiatric exam: Normal Affect, Normal Mood - Skin Skin Exam: Dry, Intact, Normal Color, Rash, Warm Assessment and Plan - Assessment and Plan (Free Text) Assessment: 52M w. large bowel obstruction, POD# 6 Hartmans -Packing no longer needed for midline incision, daily dressing changes. Clean w betadine PRN -OK to shower. Take dressing off. Place dressing after shower. -ostomy care -Pt is clear for D/C from surgical standpoint -encourage OOB and IS use in interim -Will d/w attending
[2018-02-24] MEDS: Enoxaparin 40 mg Syringe SC SCH (08:18)
[2018-02-24] MEDS: Metoprolol Succinate 100 mg XL Tab PO SCH (08:24)
--- NOTE | 2018-02-24 22:49 | CP.PCM.PN ---
Subjective - Date & Time of Evaluation Date of Evaluation: 02/24/18 Time of Evaluation: 22:47 - Subjective Subjective: Postop doing well. Denies pain Objective - Vital Signs/Intake and Output Vital Signs (last 24 hours): Temp Pulse Resp BP Pulse Ox 98.7 F 67 18 123/76 97 02/24/18 17:00 02/24/18 17:00 02/24/18 17:00 02/24/18 17:00 02/24/18 17:00 Intake and Output: 02/24/18 02/25/18 18:59 06:59 Output Total 1999 Balance -1999 - Medications Medications: Current Medications Albuterol (Ventolin Hfa 90 Mcg/Actuation (8 G)) 1 puff IH BID PRN PRN Reason: cough, sob Chlorpromazine (Thorazine) 25 mg PO Q6 [facility] Last Admin: 02/24/18 22:19 Dose: 25 mg Docusate Sodium (Colace) 100 mg PO BID PRN PRN Reason: Constipation Last Admin: 02/14/18 16:23 Dose: 100 mg Enoxaparin Sodium (Lovenox) 40 mg SC DAILY [facility]; Protocol Last Admin: 02/24/18 08:18 Dose: 40 mg Lactulose (Enulose) 10 gm PO Q6 PRN PRN Reason: Constipation Metoclopramide HCl (Reglan) 5 mg PO [facility] Last Admin: 02/24/18 17:44 Dose: 5 mg Metoprolol Succinate (Toprol Xl) 100 mg PO DAILY [facility] Last Admin: 02/24/18 08:24 Dose: 100 mg Naloxone HCl (Narcan) 0.1 mg IVP Q2M PRN PRN Reason: Shortness of Breath Ondansetron HCl (Zofran Inj) 4 mg IVP Q4 PRN PRN Reason: Nausea/Vomiting Last Admin: 02/23/18 17:13 Dose: 4 mg Pantoprazole Sodium (Protonix Inj) 40 mg IVP DAILY [facility] Last Admin: 02/24/18 08:19 Dose: 40 mg Polyethylene Glycol (Miralax) 17 gm PO QAM PRN PRN Reason: Constipation Last Admin: 02/13/18 09:14 Dose: 17 gm Simethicone (Mylicon Chew Tab) 80 mg PO Q6 PRN PRN Reason: Flatulence Last Admin: 02/22/18 05:54 Dose: 80 mg - Labs Labs: 02/22/18 05:40 02/22/18 05:40 PT 14.4 Seconds (9.8-13.1) H 02/18/18 05:40 INR 1.3 02/18/18 05:40 APTT 32.0 Seconds (25.6-37.1) 02/18/18 05:40 - Head Exam Head Exam: ATRAUMATIC - Eye Exam Eye Exam: Normal appearance Pupil Exam: PERRL - ENT Exam ENT Exam: Normal Exam - Neck Exam Neck Exam: Full ROM - Cardiovascular Exam Cardiovascular Exam: REGULAR RHYTHM - GI/Abdominal Exam GI & Abdominal Exam: Soft Assessment and Plan (1) Colon obstruction Assessment & Plan: Uneventful postop course so far Status: Acute
--- NOTE | 2018-02-25 07:32 | CP.PCM.PN ---
Subjective - Date & Time of Evaluation Date of Evaluation: 02/25/18 Time of Evaluation: 06:55 - Subjective Subjective: General Surgery Progress note Dr. Lowery Patient seen and examined this at at bedside. DESMOND per nursing. Patient states he is feeling well and looking forward to going home today. He otherwise denies PRYOR, f/c, n/v, CP, SOB, abdominal pain, constipation and extremity pain or weakness. Objective - Vital Signs/Intake and Output Vital Signs (last 24 hours): Temp Pulse Resp BP Pulse Ox 98.5 F 90 20 123/75 96 02/24/18 23:50 02/24/18 23:50 02/24/18 23:50 02/24/18 23:50 02/24/18 23:50 Intake and Output: 02/25/18 02/25/18 06:59 18:59 Output Total 400 Balance -400 - Medications Medications: Current Medications Albuterol (Ventolin Hfa 90 Mcg/Actuation (8 G)) 1 puff IH BID PRN PRN Reason: cough, sob Chlorpromazine (Thorazine) 25 mg PO Q6 [facility] Last Admin: 02/25/18 04:00 Dose: 25 mg Docusate Sodium (Colace) 100 mg PO BID PRN PRN Reason: Constipation Last Admin: 02/14/18 16:23 Dose: 100 mg Enoxaparin Sodium (Lovenox) 40 mg SC DAILY [facility]; Protocol Last Admin: 02/24/18 08:18 Dose: 40 mg Lactulose (Enulose) 10 gm PO Q6 PRN PRN Reason: Constipation Metoclopramide HCl (Reglan) 5 mg PO [facility] Last Admin: 02/24/18 23:05 Dose: 5 mg Metoprolol Succinate (Toprol Xl) 100 mg PO DAILY [facility] Last Admin: 02/24/18 08:24 Dose: 100 mg Naloxone HCl (Narcan) 0.1 mg IVP Q2M PRN PRN Reason: Shortness of Breath Ondansetron HCl (Zofran Inj) 4 mg IVP Q4 PRN PRN Reason: Nausea/Vomiting Last Admin: 02/23/18 17:13 Dose: 4 mg Pantoprazole Sodium (Protonix Inj) 40 mg IVP DAILY [facility] Last Admin: 02/24/18 08:19 Dose: 40 mg Polyethylene Glycol (Miralax) 17 gm PO QAM PRN PRN Reason: Constipation Last Admin: 02/13/18 09:14 Dose: 17 gm Simethicone (Mylicon Chew Tab) 80 mg PO Q6 PRN PRN Reason: Flatulence Last Admin: 02/22/18 05:54 Dose: 80 mg - Labs Labs: 02/22/18 05:40 02/22/18 05:40 PT 14.4 Seconds (9.8-13.1) H 02/18/18 05:40 INR 1.3 02/18/18 05:40 APTT 32.0 Seconds (25.6-37.1) 02/18/18 05:40 - Constitutional Appears: Well, Non-toxic, No Acute Distress - Head Exam Head Exam: ATRAUMATIC, NORMOCEPHALIC - Eye Exam Eye Exam: EOMI - ENT Exam ENT Exam: Mucous Membranes Moist - Respiratory Exam Respiratory Exam: NORMAL BREATHING PATTERN - Cardiovascular Exam Cardiovascular Exam: REGULAR RHYTHM - GI/Abdominal Exam GI & Abdominal Exam: Soft. absent: Distended, Guarding, Tenderness Additional comments: dressings changed at bedside, willy in place, small amount of fluid on dressings, no significant fluid expressable - Extremities Exam Extremities Exam: absent: Calf Tenderness, Pedal Edema - Neurological Exam Neurological Exam: Alert, Awake, Oriented x3 - Psychiatric Exam Psychiatric exam: Normal Affect, Normal Mood - Skin Skin Exam: Dry, Normal Color, Warm Additional comments: incision cleaned with betadine, willy in place healing well no overlying edema or erythema, no fluid expressed Assessment and Plan - Assessment and Plan (Free Text) Assessment: 52 yr old male with large bowel obstruction s/p Goins's procedure POD 7 Plan: - Daily dressing changes, clean incision with betadine with dressing changes -OK to shower. Take dressing off. Place dressing after shower. -ostomy care -Pt is clear for D/C from surgical standpoint -encourage OOB and IS use in interim -d/w attending Collette Ruth, PGY 1
[2018-02-25] MEDS: Metoprolol Succinate 100 mg XL Tab PO SCH (09:10)
--- NOTE | 2018-02-25 16:10 | CP.PCM.PN ---
Subjective - Date & Time of Evaluation Date of Evaluation: 02/25/18 Time of Evaluation: 16:08 - Subjective Subjective: GI progress note- Dr. Johnson Patient seen and examined at bedside. No new complaints. + OOB, - N/v/f/c/cp/sob. Objective - Vital Signs/Intake and Output Vital Signs (last 24 hours): Temp Pulse Resp BP Pulse Ox 98.9 F 90 19 138/83 95 02/25/18 09:00 02/25/18 09:10 02/25/18 09:00 02/25/18 09:10 02/25/18 09:00 Intake and Output: 02/25/18 02/25/18 06:59 18:59 Output Total 400 Balance -400 - Medications Medications: Current Medications Albuterol (Ventolin Hfa 90 Mcg/Actuation (8 G)) 1 puff IH BID PRN PRN Reason: cough, sob Chlorpromazine (Thorazine) 25 mg PO Q6 [facility] Last Admin: 02/25/18 09:11 Dose: 25 mg Docusate Sodium (Colace) 100 mg PO BID PRN PRN Reason: Constipation Last Admin: 02/14/18 16:23 Dose: 100 mg Lactulose (Enulose) 10 gm PO Q6 PRN PRN Reason: Constipation Metoclopramide HCl (Reglan) 5 mg PO ACHS [facility] Last Admin: 02/25/18 11:55 Dose: 5 mg Metoprolol Succinate (Toprol Xl) 100 mg PO DAILY [facility] Last Admin: 02/25/18 09:10 Dose: 100 mg Naloxone HCl (Narcan) 0.1 mg IVP Q2M PRN PRN Reason: Shortness of Breath Ondansetron HCl (Zofran Inj) 4 mg IVP Q4 PRN PRN Reason: Nausea/Vomiting Last Admin: 02/23/18 17:13 Dose: 4 mg Pantoprazole Sodium (Protonix Inj) 40 mg IVP DAILY [facility] Last Admin: 02/25/18 09:10 Dose: 40 mg Polyethylene Glycol (Miralax) 17 gm PO QAM PRN PRN Reason: Constipation Last Admin: 02/13/18 09:14 Dose: 17 gm Simethicone (Mylicon Chew Tab) 80 mg PO Q6 PRN PRN Reason: Flatulence Last Admin: 02/22/18 05:54 Dose: 80 mg - Labs Labs: 02/22/18 05:40 02/22/18 05:40 PT 14.4 Seconds (9.8-13.1) H 02/18/18 05:40 INR 1.3 02/18/18 05:40 APTT 32.0 Seconds (25.6-37.1) 02/18/18 05:40 - Constitutional Appears: Non-toxic, No Acute Distress - Head Exam Head Exam: ATRAUMATIC - Eye Exam Eye Exam: EOMI. absent: Scleral icterus - ENT Exam ENT Exam: Mucous Membranes Moist - Respiratory Exam Respiratory Exam: NORMAL BREATHING PATTERN. absent: Accessory Muscle Use, Respiratory Distress - Cardiovascular Exam Cardiovascular Exam: +S1, +S2. absent: Bradycardia, Tachycardia - GI/Abdominal Exam GI & Abdominal Exam: Soft. absent: Distended, Firm, Guarding, Rigid, Tenderness Additional comments: stoma pink, patent w/ air and stool output - Back Exam Back Exam: absent: CVA tenderness (L) - Neurological Exam Neurological Exam: Alert, Awake, Oriented x3 - Skin Skin Exam: Intact, Warm Assessment and Plan - Assessment and Plan (Free Text) Assessment: 52M w/ LBO s/p Mariah's on 02/18 Plan: - continue medical management - no further acute GI intervention - encourage OOB and IC use - diet as tolerated - discussed w/ Dr. Johnson GI attending PGY2
[2018-02-26 00:42] VITALS: BP 136/83; PULSE 93; RESP 20; TEMP 98.6; O2SAT 100
== END 2018-02-25 18:05 | disposition home health service (06) | DRG 148 ==
LOC: H.ER 00:33 → H.ERHOLD 03:12 → H.MEDSURG1 03:49 → OBSVTOIN 02-14 14:58 → H.MEDSURG1 02-20 14:04
PROVIDERS: ADMIT Family Medicine; ATTEND Family Medicine
PROC: 3E02340 Introduction of Influenza Vaccine into Muscle, Percutaneous Approach (ICD-10-PCS; 2018-02-12)
PROC: 3E0234Z Introduction of Serum, Toxoid and Vaccine into Muscle, Percutaneous Approach (ICD-10-PCS; 2018-02-12)
PROC: 0DBM8ZX Excision of Descending Colon, Via Natural or Artificial Opening Endoscopic, Diagnostic (ICD-10-PCS; 2018-02-15)
PROC: 0DBL8ZX Excision of Transverse Colon, Via Natural or Artificial Opening Endoscopic, Diagnostic (ICD-10-PCS; 2018-02-15)
PROC: 0DNE0ZZ Release Large Intestine, Open Approach (ICD-10-PCS; 2018-02-18)
PROC: 0DTN0ZZ Resection of Sigmoid Colon, Open Approach (ICD-10-PCS; principal; 2018-02-18 12:00)
PROC: 0D1M0Z4 Bypass Descending Colon to Cutaneous, Open Approach (ICD-10-PCS; 2018-02-18 12:00)
DX: K57.32 Diverticulitis of large intestine without perforation or abscess without bleeding (principal); K56.690 Other partial intestinal obstruction; K59.39 Other megacolon; E11.9 Type 2 diabetes mellitus without complications; G47.33 Obstructive sleep apnea (adult) (pediatric); J45.909 Unspecified asthma, uncomplicated; I10 Essential (primary) hypertension; L40.9 Psoriasis, unspecified; E66.9 Obesity, unspecified; Z68.38 Body mass index [BMI] 38.0-38.9, adult; Z23 Encounter for immunization

== ENCOUNTER 2018-02-28 19:48 | Emergency (ER) | payer MEDICAID ==
[2018-02-28 19:49] VITALS: BMI 51.1
[2018-02-28 19:58] VITALS: RESP 18
[2018-02-28] MEDS ORDERED: Morphine 4 MG/ML VIAL IVP ONE (20:14)
[2018-02-28] MEDS ORDERED: Sodium Chloride 0.9% 1,000 ML IV STA (20:15)
[2018-02-28] MEDS ORDERED: Morphine 4 MG/ML VIAL ONE (20:28)
[2018-02-28 20:37] LABS: VENOUS BLOOD GAS BASE EXCESS 0.3 mmol/L (0.0-2.0); VENOUS BLOOD GAS PCO2 42 mmHg (40-60); VENOUS BLOOD GAS PO2 29 mm/Hg (30-55); VENOUS BLOOD PH 7.39 (7.32-7.43)
--- NOTE | 2018-02-28 20:50 | ED PDOC ---
HPI: Abdomen Time Seen by Provider: 02/28/18 20:02 Chief Complaint (Nursing): Weakness/Neurological Deficit History/Exam Limitations: no limitations Onset/Duration Of Symptoms: Days Outside of [place] travel?: No Location Of Pain/Discomfort: Diffuse Associated Symptoms: Nausea, Vomiting Additional Complaint(s): Hx of diverticulitis, LBO with ex-lap and colostomy presenting with continued abdominal pain, weakness, nausea, and vomiting. States that he was discharged from the hospital on 02/24 and since being home he states he was never given any medication/prescriptions and he states he's been getting more abdominal pain. States he's putting out stool through his colostomy but has had nausea, difficulty eating, and one episode of nonbloody nonbilious vomiting. States that he is getting progressively more and more weak. Patient also states he was having chest pain yesterday, no shortness of breath. PMD: Dr. Joshua Past Medical History Reviewed: Historical Data, Nursing Documentation, Vital Signs Vital Signs: Last Vital Signs Temp 98.7 F 02/28/18 19:55 Pulse 80 02/28/18 19:55 Resp 18 02/28/18 19:55 BP 138/66 02/28/18 20:29 Pulse Ox 97 02/28/18 19:55 - Medical History PMH: Asthma, Diabetes, HTN, Sleep Apnea Denies: Chronic Kidney Disease - Family History Family History: States: Unknown Family Hx - Immunization History Hx Tetanus Toxoid Vaccination: Yes Hx Influenza Vaccination: Yes Hx Pneumococcal Vaccination: Yes - Home Medications Home Medications: Ambulatory Orders Medication Instructions Recorded RX: Metoprolol Succinate XL 100 mg PO DAILY #30 09/03/16 [Toprol XL] RX: metFORMIN [glucOPHAGE] 500 mg PO BID #120 tab 09/03/16 Hydrocodone/Acetaminophen [Vicodin 1 each PO Q8 #15 tablet 03/01/18 Es 7.5-300 mg Tablet] RX: Non-Formulary 1 ea PO ONCE #1 ea 03/01/18 - Allergies Allergies/Adverse Reactions: Allergies Allergy/AdvReac Type Severity Reaction Status Date / Time No Known Allergies Allergy Verified 02/28/18 19:55 Review of Systems ROS Statement: Except As Marked, All Systems Reviewed And Found Negative Gastrointestinal: Positive for: Nausea, Vomiting, Abdominal Pain Physical Exam - Reviewed Nursing Documentation Reviewed: Yes Vital Signs Reviewed: Yes - Physical Exam Appears: Positive for: Non-toxic, No Acute Distress, Uncomfortable. Negative for: Well Head Exam: Positive for: ATRAUMATIC, NORMAL INSPECTION, NORMOCEPHALIC Skin: Positive for: Pallor Eye Exam: Positive for: EOMI, Normal appearance, PERRL ENT: Positive for: Normal ENT Inspection Neck: Positive for: Normal, Painless ROM Cardiovascular/Chest: Positive for: Regular Rate, Rhythm Respiratory: Positive for: CNT, Normal Breath Sounds Gastrointestinal/Abdominal: Positive for: Tenderness (Diffuse), Distended, Other (Colostomy- full) Back: Positive for: Normal Inspection Extremity: Positive for: Normal ROM Neurologic/Psych: Positive for: Alert, date night caregiver II-XII, Oriented. Negative for: Motor/Sensory Deficits - Laboratory Results Result Diagrams: 02/28/18 20:37 02/28/18 20:37 - ECG ECG Rhythm: Positive for: Normal QRS, Normal ST Segment, Nonspecific Changes O2 Sat by Pulse Oximetry: 97 Pulse Ox Interpretation: Normal Medical Decision Making Medical Decision MakinPM Patient with recent ex-lap for LBO presenting with continued abdominal pain, weakness --Patient has distended abdomen --Concerned for acute intra-abdominal process --Will get labs, CT, fluids, pain medications, and re-eval 22:40 CT Abdomen/Pelvis Findings Lower thorax Unremarkable. Hear is moderately enlarged. Liver There is hepatic hypoattenuation compatible with fatty infiltration. No gross lesion or ductal dilatation. Gallbladder and bile ducts Unremarkable. Pancreas Unremarkable. No gross lesion or ductal dilatation. Spleen Unremarkable. Adrenals Unremarkable. No mass. Kidneys and ureters No hydronephrosis. There is a 3 mm non-obstructing calculus noted in the superior pole of the right kidney. There are several non-obstructing calculi noted in the mid pole of the left kidney measuring up to 4 mm. Vasculature Unremarkable. No aortic aneurysm. Bowel Colostomy is present in the left lower quadrant. There is evidence of midline laparotomy. No obstruction. No gross mural thickening. Appendix Normal appendix. Peritoneum Unremarkable. No free fluid. No free air. Lymph nodes Unremarkable. No enlarged lymph nodes. Bladder Unremarkable. Reproductive Prostate gland is mildly enlarged. Small fat-containing right inguinal hernia is seen. Bones No acute fracture. Other Findings Note is made of bubbles of air present in the anterior abdominal wall, likely postsurgical. There is a localized subcutaneous fluid collection noted adjacent to the colostomy measuring approximately 3.5 cm and contains several small bubbles, may represent small infected seroma or abscess. Impression Fatty liver Right kidney single non-obstructing calculus. Several left kidney non- obstructing calculi measuring up to 4 mm. Colostomy in left lower quadrant. Localized subcutaneous fluid collection adjacent to the colostomy measuring approximately 3.5 cm and contains several small bubbles, may represent small infected seroma or abscess. Mildly enlarged prostate gland. Small fat-containing right inguinal hernia Moderate cardiomegaly. 0100 On reassessment, patient reports feeling significant improvement. Patient seen and evaluated by nursing surgical services director Dr. Alves, who discussed case with and states no surgical intervention needed at this time. Resident drained the seroma at bedside. Patient reports feeling much better after the procedure. Patient is well appearing and had a negative workup. Case discussed w/ Dr. Costa, who states he will follow up with patient ou tpatient. Patient given short term prescription for opioid pain killers and discussed extensively with patient regarding appropriate use of medication for pain as well as risk for addiction. Patient expresses understanding and is agreeable. Stable for discharge home. Disposition - Clinical Impression Clinical Impression: Abdominal pain - Disposition Referrals: Jorge Alberto Costa MD [Staff Provider] - Disposition: Routine/Home Disposition Time: 01:09 Condition: STABLE Prescriptions: Hydrocodone/Acetaminophen [Vicodin Es 7.5-300 mg Tablet] 1 each PO Q8 #15 tablet RX: Non-Formulary 1 ea PO ONCE #1 ea Instructions: Opioids for Short-Term Treatment of Pain, Stomach Ache and Stomach Upset, Taking Narcotics Safely Forms: Occasion (Lithuanian)
[2018-02-28 21:04] LABS: BASO % 0.3 % (0.0-2.0); EOS # 0.1 K/uL (0.0-0.7); EOS % 0.9 % (0.0-4.0); HEMOGLOBIN 11.8 g/dL (12.0-18.0); LYMPH # 1.2 K/uL (1.0-4.3); LYMPH % 20.4 % (20.0-40.0); MEAN CELL VOLUME 85.8 fl (80.0-94.0); MEAN CORPUSCULAR HEMOGLOBIN 27.7 pg (27.0-31.0); MEAN CORPUSCULAR HGB CONC 32.3 g/dL (33.0-37.0); MEAN PLATELET VOLUME 8.4 fl (7.2-11.7); MONO # 0.9 K/uL (0.0-0.8); NEUT # 3.6 K/uL (1.8-7.0); NEUT % 62.4 % (50.0-75.0); RBC 4.25 Mil/uL (4.40-5.90); RED CELL DISTRIBUTION WIDTH 14.5 % (11.5-14.5); WHITE BLOOD COUNT 5.8 K/uL (4.8-10.8)
[2018-02-28 21:09] LABS: ALB/GLOB RATIO 0.9 (1.0-2.1); ALBUMIN 3.1 g/dL (3.5-5.0); ALT/SGPT 36 U/L (21-72); AST/SGOT 24 U/L (17-59); BLOOD UREA NITROGEN 6 mg/dl (9-20); CALCIUM 8.2 mg/dL (8.4-10.2); GFR NON-AFRICAN AMERICAN > 60; LIPASE 701 U/L (23-300)
[2018-02-28] MEDS ORDERED: Iohexol 300 100 ML IJ ONE (21:18)
[2018-02-28] MEDS ORDERED: Sodium Chloride 0.9% 100 ML ONE (21:19)
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
[2018-03-01 01:32] VITALS: BP 132/64; PULSE 84; TEMP 99.1
[2018-03-01 01:57] VITALS: O2SAT 97
--- NOTE | 2018-03-01 09:39 | CARD ---
APPROVED REPORT Date of service: 02/28/2018 EKG Measurement Heart [id number] <Conclusion> Normal sinus rhythm Left ventricular hypertrophy with repolarization abnormality Prolonged QT Abnormal ECG
--- NOTE | 2018-03-01 13:56 | CT ---
Date of service: 02/28/2018 PROCEDURE: CT Abdomen and Pelvis with contrast HISTORY: abdominal pain- recent LBO with surgery and colost COMPARISON: Abdomen pelvis CT with contrast 02/14/2018. TECHNIQUE: Following the intravenous administration of iodinated contrast material, a CT examination of the abdomen and pelvis performed from the domes of the diaphragms to the symphysis pubis with reformatted datasets provided in axial, sagittal and coronal planes. Oral contrast was not administered as per referring physician request. Coronal and sagittal reformats were generated. Contrast dose: Omnipaque 300, 98 cc Radiation dose: Total exam DLP = 1849.13 mGy-cm. This CT exam was performed using one or more of the following dose reduction techniques: Automated exposure control, adjustment of the mA and/or kV according to patient size, and/or use of iterative reconstruction technique. FINDINGS: LOWER THORAX: Limited ground-glass opacities identified in the bilateral lung bases of uncertain origin. No alveolitis bilaterally, pleural or pericardial effusion. Small hiatal hernia reiterated. LIVER: Unremarkable. No gross lesion or ductal dilatation. GALLBLADDER AND BILE DUCTS: Unremarkable. PANCREAS: Unremarkable. No gross lesion or ductal dilatation. SPLEEN: Unremarkable. ADRENALS: Unremarkable. No mass. KIDNEYS AND URETERS: Multiple punctate intrarenal calculi are nonobstructive bilaterally. Kidneys are otherwise unremarkable appearing. VASCULATURE: Unremarkable. No aortic aneurysm. No aortic atherosclerotic calcification or mural plaque present. BOWEL: Patient is now seen to be status post left lower quadrant colostomy with a least partial decompression of distended large bowel loops in the interval. An anastomotic suture line is seen at the rectum/distal sigmoid segment. The lack of oral contrast limits evaluation of the gastrointestinal tract with no residual obstruction appreciated. Limited fluid collection is seen cephalad to the colostomy site with trace gas measuring 5.7 x 3.2 cm, potentially representing an abscess. Further, a 3.7 x 2.8 x 6.0 cm collection of debris and gas is seen in the deep midline inferior abdominal incision plane suspicious for an abscess. APPENDIX: Not identified. No CT evidence of appendicitis. PERITONEUM: Unremarkable. No free fluid. No free air. LYMPH NODES: Unremarkable. No enlarged lymph nodes. BLADDER: Unremarkable. REPRODUCTIVE: Unremarkable. BONES: No acute fracture. OTHER FINDINGS: None. IMPRESSION: 1. Interval left lower quadrant colostomy and question mucous fistula in the pelvis. Gas containing collection at the operative site measuring 3.7 x 2.8 x 6.0 cm is suspicious for an abscess as well as 5.7 x 3.2 cm collection cephalad to the colostomy, also in the abdominal wall. 2. No bowel obstruction appreciable. 3. Punctate intrarenal calculi are nonobstructive at the bilateral kidneys. 4. Nonspecific ground-glass changes bilateral lung bases.
== END 2018-03-01 01:32 | disposition home or self-care (01) ==
LOC: H.ER 19:48
DX: R10.9 Unspecified abdominal pain (principal); R53.1 Weakness; E11.9 Type 2 diabetes mellitus without complications; I10 Essential (primary) hypertension; J45.909 Unspecified asthma, uncomplicated; Z79.84 Long term (current) use of oral hypoglycemic drugs; Z93.3 Colostomy status
CPT/HCPCS: 74177; 80053; 82803; 82948; 83690; 84484; 85025; 86850; 86900; 93005; 96374; 99283; J2270; J7030; Q9967

== ENCOUNTER 2018-03-07 17:08 | Inpatient (IN) | payer MEDICAID ==
[2018-03-07 17:08] VITALS: BMI 51.1
--- NOTE | 2018-03-07 19:32 | ED PDOC ---
HPI: General Adult Time Seen by Provider: 03/07/18 19:15 Chief Complaint (Nursing): Wound Check Chief Complaint (Provider): abdominal pain History Per: Patient (52 y/o male recent Goins's procedure for diverticulitis 02/18 here for persistent abdominal pain despite draining seroma 03/[address] that day and surgical evaluation. Denies any fevers/chills.) Past Medical History Reviewed: Historical Data, Nursing Documentation, Vital Signs Vital Signs: Last Vital Signs Temp 97.9 F 03/07/18 17:29 Pulse 62 03/07/18 17:29 Resp 16 03/07/18 17:29 BP 110/66 03/07/18 17:29 Pulse Ox 97 03/07/18 17:29 - Medical History PMH: Asthma, Diabetes, HTN, Sleep Apnea Denies: Chronic Kidney Disease - Family History Family History: States: Unknown Family Hx - Immunization History Hx Tetanus Toxoid Vaccination: Yes Hx Influenza Vaccination: Yes Hx Pneumococcal Vaccination: Yes - Home Medications Home Medications: Ambulatory Orders Medication Instructions Recorded Metoprolol Succinate XL [Toprol XL] 100 mg PO DAILY #30 09/03/16 metFORMIN [glucOPHAGE] 500 mg PO BID #120 tab 09/03/16 Hydrocodone/Acetaminophen [Vicodin 1 each PO Q8 #15 tablet 03/01/18 Es 7.5-300 mg Tablet] Non-Formulary 1 ea PO ONCE #1 ea 03/01/18 - Allergies Allergies/Adverse Reactions: Allergies Allergy/AdvReac Type Severity Reaction Status Date / Time No Known Allergies Allergy Verified 03/07/18 17:32 Review of Systems ROS Statement: Except As Marked, All Systems Reviewed And Found Negative Physical Exam - Reviewed Nursing Documentation Reviewed: Yes Vital Signs Reviewed: Yes - Physical Exam Appears: Positive for: Well, Non-toxic, No Acute Distress Head Exam: Positive for: ATRAUMATIC, NORMAL INSPECTION, NORMOCEPHALIC Skin: Positive for: Normal Color, Warm, DRY Eye Exam: Positive for: EOMI, Normal appearance, PERRL ENT: Positive for: Normal ENT Inspection Neck: Positive for: Normal, Painless ROM Cardiovascular/Chest: Positive for: Regular Rate, Rhythm Respiratory: Positive for: CNT, Normal Breath Sounds Gastrointestinal/Abdominal: Positive for: Normal Exam, Soft, Tenderness (umbilical wound with mild prululent discharge but no signs of erythema/cellulitis. Left lower quadrant colostomy in place.) Back: Positive for: Normal Inspection Extremity: Positive for: Normal ROM Neurologic/Psych: Positive for: Alert, Oriented - ECG O2 Sat by Pulse Oximetry: 97 - Progress ED Course And Treament: d/w surgical processor 19:29 Disposition - Clinical Impression Clinical Impression: Abdominal pain - Patient ED Disposition Is Patient to be Admitted: Transfer of Care - Disposition Disposition: Transfer of Care Disposition Time: 20:00 Condition: FAIR Patient Signed Over To: Emery Santana Handoff Comments: bloodwork/surgical evaluation
[2018-03-07] MEDS ORDERED: Piperacillin/Tazobact 3.375 GM in Sodium Chloride 0.9% 100 ML IVPB STA (20:11)
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
--- NOTE | 2018-03-07 21:07 | ED PDOC ---
- Laboratory Results Result Diagrams: 03/07/18 21:30 03/07/18 21:30 - ECG O2 Sat by Pulse Oximetry: 97 - Progress ED Course And Treament: 1999 Signed out to me pending surgery disposition [address] Ruth, surgery, who spoke with Deb and requests pt. to be admitted. Case d/w Dr. López and arrangements made for admission. Disposition - Clinical Impression Clinical Impression: Seroma after procedure - POA Present On Arrival: Surgical Site Infection - Disposition Disposition: Admitted as In-Patient Disposition Time: 20:45 Condition: FAIR
[2018-03-07] MEDS ORDERED: Piperacillin/Tazobact 3.375 gm Inj IVPB ONE (21:10)
[2018-03-07 21:38] LABS: BASO % 0.6 % (0.0-2.0); EOS # 0.1 K/uL (0.0-0.7); EOS % 1.7 % (0.0-4.0); HEMOGLOBIN 12.2 g/dL (12.0-18.0); LYMPH # 1.6 K/uL (1.0-4.3); LYMPH % 31.7 % (20.0-40.0); MEAN CELL VOLUME 84.8 fl (80.0-94.0); MEAN CORPUSCULAR HEMOGLOBIN 27.8 pg (27.0-31.0); MEAN CORPUSCULAR HGB CONC 32.8 g/dL (33.0-37.0); MEAN PLATELET VOLUME 7.6 fl (7.2-11.7); MONO # 0.9 K/uL (0.0-0.8); MONO % 17.8 % (0.0-10.0); NEUT # 2.4 K/uL (1.8-7.0); NEUT % 48.2 % (50.0-75.0); NRBC % 0.2 % (0.0-0.0); RBC 4.4 Mil/uL (4.40-5.90); RED CELL DISTRIBUTION WIDTH 14.1 % (11.5-14.5)
[2018-03-07 21:52] LABS: ALB/GLOB RATIO 0.7 (1.0-2.1); ALBUMIN 3.2 g/dL (3.5-5.0); ALT/SGPT 21 U/L (21-72); AST/SGOT 23 U/L (17-59); BLOOD UREA NITROGEN 7 mg/dl (9-20); CALCIUM 9.5 mg/dL (8.4-10.2); GFR NON-AFRICAN AMERICAN > 60
[2018-03-08] MEDS: Piperacillin/Tazobact 3.375 GM in Sodium Chloride 0.9% 100 ML IVPB SCH ×4 (03:45→21:42)
[2018-03-08] MEDS ORDERED: Povidone Iodine Topical 10% Sol ONE (06:55)
--- NOTE | 2018-03-08 07:35 | CP.PCM.PN ---
Subjective - Date & Time of Evaluation Date of Evaluation: 03/08/18 Time of Evaluation: 06:55 - Subjective Subjective: General surgery progress note Patient seen and examined this am at bedside. NAEO per nursing. Dressing and packing changed at bedside. Patient denies f/c, n/v, stool changes, PRYOR, CP, SOB and extremity pain or weakness. Objective - Vital Signs/Intake and Output Vital Signs (last 24 hours): Temp Pulse Resp BP Pulse Ox 99 F 64 19 124/77 95 03/08/18 00:37 03/08/18 00:37 03/08/18 00:37 03/08/18 00:37 03/08/18 00:37 - Medications Medications: Current Medications Piperacillin Sod/Tazobactam (Sod 3.375 gm/ Sodium Chloride) 100 mls @ 100 mls/hr IVPB Q6 [facility]; Protocol Last Admin: 03/08/18 03:45 Dose: 100 mls/hr Metformin HCl (Glucophage) 500 mg PO BID [facility] Metoprolol Succinate (Toprol Xl) 100 mg PO DAILY [facility] Morphine Sulfate (Morphine) 2 mg IVP Q6 PRN PRN Reason: Pain, severe (8-10) - Labs Labs: 03/07/18 21:30 03/07/18 21:30 - Constitutional Appears: Well, Non-toxic, No Acute Distress - Head Exam Head Exam: ATRAUMATIC, NORMOCEPHALIC - Eye Exam Eye Exam: EOMI - ENT Exam ENT Exam: Mucous Membranes Moist - Respiratory Exam Respiratory Exam: NORMAL BREATHING PATTERN - Cardiovascular Exam Cardiovascular Exam: REGULAR RHYTHM - GI/Abdominal Exam GI & Abdominal Exam: Soft, Tenderness (incisional tenderness). absent: Distended, Guarding - Neurological Exam Neurological Exam: Alert, Awake, Oriented x3 - Psychiatric Exam Psychiatric exam: Normal Affect, Normal Mood - Skin Skin Exam: Warm. absent: Dry, Intact Additional comments: several areas of poor wound healing along the incision site with granulation tissue present, superior most opening with small cavity draining serous fluid, inferior most opening with larger cavity draining foul smelling purulent fluid, psoriatic rash over the abdomen diffusely and scattered throughout the body, packing and dressings changed at bedside Assessment and Plan - Assessment and Plan (Free Text) Assessment: 52 yr old M s/p Goins's procedure 02/18 POD 18 with likely wound infection and partial superficial wound dehiscence Plan: c/w pain control c/w packing changes and local wound care SCD abdominal binder IS will d/w Dr. Sebastián Ruth, PGY 1
[2018-03-08] MEDS: Metoprolol Succinate 100 mg XL Tab PO SCH (09:38)
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
[2018-03-08] MEDS: Morphine 4 MG/ML VIAL IVP PRN (17:35)
[2018-03-09] MEDS: Piperacillin/Tazobact 3.375 GM in Sodium Chloride 0.9% 100 ML IVPB SCH ×4 (03:35→21:01)
[2018-03-09 07:24] LABS: BASO % 0.7 % (0.0-2.0); EOS # 0.1 K/uL (0.0-0.7); HEMOGLOBIN 11.4 g/dL (12.0-18.0); LYMPH # 1.6 K/uL (1.0-4.3); LYMPH % 33.8 % (20.0-40.0); MEAN CELL VOLUME 84.6 fl (80.0-94.0); MEAN CORPUSCULAR HEMOGLOBIN 27.4 pg (27.0-31.0); MEAN CORPUSCULAR HGB CONC 32.4 g/dL (33.0-37.0); MONO % 20.5 % (0.0-10.0); NRBC % 0.1 % (0.0-0.0); PLATELET COUNT 313 K/uL (130-400); RBC 4.16 Mil/uL (4.40-5.90); RED CELL DISTRIBUTION WIDTH 14.4 % (11.5-14.5); WHITE BLOOD COUNT 4.7 K/uL (4.8-10.8)
--- NOTE | 2018-03-09 07:39 | CP.PCM.PN ---
Subjective - Date & Time of Evaluation Date of Evaluation: 03/09/18 Time of Evaluation: 07:37 - Subjective Subjective: Surgery Progress note. Dr. Lowery service Pt seen and examined at bedside. Dressing changed this morning. Patient tolerated well. Denies any new complaints. No N/V/D. No CP/SOB. No F/C. Objective - Vital Signs/Intake and Output Vital Signs (last 24 hours): Temp Pulse Resp BP Pulse Ox 97.8 F 65 20 110/72 94 L 03/08/18 16:43 03/08/18 16:43 03/08/18 16:43 03/08/18 16:43 03/08/18 16:43 - Medications Medications: Current Medications Acetaminophen (Tylenol 325mg Tab) 325 mg PO Q4 PRN PRN Reason: Pain, Mild (1-3) Piperacillin Sod/Tazobactam (Sod 3.375 gm/ Sodium Chloride) 100 mls @ 100 mls/hr IVPB Q6[facility]; Protocol Metformin HCl (Glucophage) 500 mg PO BID [facility] Last Admin: 03/08/18 16:42 Dose: 500 mg Metoprolol Succinate (Toprol Xl) 100 mg PO DAILY [facility] Last Admin: 03/08/18 09:38 Dose: 100 mg Morphine Sulfate (Morphine) 2 mg IVP Q6 PRN PRN Reason: Pain, severe (8-10) Last Admin: 03/08/18 17:35 Dose: 2 mg - Labs Labs: 03/09/18 06:30 03/07/18 21:30 - Constitutional Appears: Well, Non-toxic, No Acute Distress - Head Exam Head Exam: ATRAUMATIC, NORMAL INSPECTION, NORMOCEPHALIC - Eye Exam Eye Exam: EOMI, Normal appearance - ENT Exam ENT Exam: Mucous Membranes Moist - Respiratory Exam Respiratory Exam: NORMAL BREATHING PATTERN. absent: Accessory Muscle Use - Cardiovascular Exam Cardiovascular Exam: absent: JVD - GI/Abdominal Exam GI & Abdominal Exam: Soft. absent: Distended, Guarding, Rebound Additional comments: Ostomy functioning. midline incision with purulent drainage. Packing changed. - Extremities Exam Extremities Exam: Normal Inspection - Neurological Exam Neurological Exam: Alert, Awake, Oriented x3 - Skin Skin Exam: Intact, Warm Assessment and Plan - Assessment and Plan (Free Text) Assessment: 52yo M s/p Goins's on 02/18. Here with partial superficial wound dehiscence. Plan: - Pain management - Packing changes 2 times a day - SCDs - Abdominal binder for comfort - Continue Abx Further recs as per Dr. Sebastián Conner PGY2 Surgery
[2018-03-09 07:43] LABS: ALB/GLOB RATIO 0.7 (1.0-2.1); ALBUMIN 2.9 g/dL (3.5-5.0); ALT/SGPT 16 U/L (21-72); AST/SGOT 20 U/L (17-59); BLOOD UREA NITROGEN 8 mg/dl (9-20); CALCIUM 8.7 mg/dL (8.4-10.2); GFR NON-AFRICAN AMERICAN > 60
[2018-03-09] MEDS: Metoprolol Succinate 100 mg XL Tab PO SCH (09:14)
[2018-03-09 10:43] LABS: ANISOCYTOSIS SLIGHT; LARGE PLATELETS PRESENT; LYMPHOCYTE 24 % (20-50); MONOCYTE 11 % (0-10); NEUTROPHIL 62 % (42-75); OVALOCYTES SLIGHT; PLATELET ESTIMATE NORMAL (NORMAL); REACTIVE LYMPHOCYTES 3 % (0-0); TEARDROP CELLS SLIGHT; TOTAL CELLS COUNTED 100
[2018-03-09] MEDS: Morphine 4 MG/ML VIAL IVP PRN ×2 (13:59→20:26)
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
[2018-03-10] MEDS: Piperacillin/Tazobact 3.375 GM in Sodium Chloride 0.9% 100 ML IVPB SCH ×4 (04:09→21:31)
[2018-03-10] MEDS: Morphine 4 MG/ML VIAL IVP PRN ×2 (06:11→18:41)
[2018-03-10 07:09] LABS: BASO % 0.6 % (0.0-2.0); EOS # 0.1 K/uL (0.0-0.7); EOS % 3.4 % (0.0-4.0); HEMOGLOBIN 11.9 g/dL (12.0-18.0); LYMPH # 1.6 K/uL (1.0-4.3); LYMPH % 36.8 % (20.0-40.0); MEAN CELL VOLUME 84.3 fl (80.0-94.0); MEAN CORPUSCULAR HEMOGLOBIN 27.4 pg (27.0-31.0); MEAN CORPUSCULAR HGB CONC 32.5 g/dL (33.0-37.0); MEAN PLATELET VOLUME 7.8 fl (7.2-11.7); MONO # 0.7 K/uL (0.0-0.8); NEUT # 1.8 K/uL (1.8-7.0); NEUT % 42.2 % (50.0-75.0); NRBC % 0.2 % (0.0-0.0); RBC 4.32 Mil/uL (4.40-5.90); RED CELL DISTRIBUTION WIDTH 14.3 % (11.5-14.5); WHITE BLOOD COUNT 4.2 K/uL (4.8-10.8)
[2018-03-10 07:24] LABS: ALB/GLOB RATIO 0.8 (1.0-2.1); ALT/SGPT 18 U/L (21-72); AST/SGOT 18 U/L (17-59); BLOOD UREA NITROGEN 8 mg/dl (9-20); CALCIUM 8.8 mg/dL (8.4-10.2); GFR NON-AFRICAN AMERICAN > 60
--- NOTE | 2018-03-10 08:08 | CP.PCM.PN ---
Subjective - Date & Time of Evaluation Date of Evaluation: 03/10/18 Time of Evaluation: 08:01 - Subjective Subjective: Surgery: Dr. Lowery Patient feeling overall better today. He reports less drainage from the inferior portion of the incision. He reports packing being changed overnight by nursing. he denies f/c/n/v. He is tolerating diet. He is OOB ambulating. No complaints at this time. Objective - Vital Signs/Intake and Output Vital Signs (last 24 hours): Temp Pulse Resp BP Pulse Ox 98.9 F 69 18 122/77 95 03/09/18 23:52 03/09/18 23:52 03/09/18 23:52 03/09/18 23:52 03/09/18 23:52 - Medications Medications: Current Medications Acetaminophen (Tylenol 325mg Tab) 325 mg PO Q4 PRN PRN Reason: Pain, Mild (1-3) Piperacillin Sod/Tazobactam (Sod 3.375 gm/ Sodium Chloride) 100 mls @ 100 mls/hr IVPB Q6H [facility]; Protocol Last Admin: 03/10/18 04:09 Dose: 100 mls/hr Metformin HCl (Glucophage) 500 mg PO BID [facility] Last Admin: 03/09/18 17:36 Dose: 500 mg Metoprolol Succinate (Toprol Xl) 100 mg PO DAILY [facility] Last Admin: 03/09/18 09:14 Dose: Not Given Morphine Sulfate (Morphine) 2 mg IVP Q6 PRN PRN Reason: Pain, severe (8-10) Last Admin: 03/10/18 06:11 Dose: 2 mg - Labs Labs: 03/10/18 05:25 03/10/18 05:25 - Constitutional Appears: Non-toxic, No Acute Distress - Head Exam Head Exam: ATRAUMATIC, NORMOCEPHALIC - Eye Exam Eye Exam: EOMI, Normal appearance - ENT Exam ENT Exam: Mucous Membranes Moist - Respiratory Exam Respiratory Exam: NORMAL BREATHING PATTERN. absent: Respiratory Distress - Cardiovascular Exam Cardiovascular Exam: REGULAR RHYTHM. absent: Tachycardia - GI/Abdominal Exam GI & Abdominal Exam: Distended, Soft, Tenderness (reinier-incisional ). absent: Guarding, Rigid, Rebound Additional comments: midline incision with excoriation and superior opening w/o drainage and an infe rior opening with foul smelling purulent drainage, packing removed. Wound enters about 3cm deep the tunnels Left lateral approximately 3 cms. New packing placed with ABD over wounds. Assessment and Plan - Assessment and Plan (Free Text) Assessment: 52yo M s/p Mariah's on 02/18 with partial wound dehiscence Plan: -cont local wound care with BID packing changes, monitor drainage from wound. make sure overlying dressing is changed prn for drainage to ensure no further excoriation to the skin -cont diet -cont ostomy care -OOB -ok to remove binder as patient reports binder is uncomfortable -further recs per Dr. Lowery [facility] PGY4
[2018-03-10] MEDS: Metoprolol Succinate 100 mg XL Tab PO SCH (09:32)
--- NOTE | 2018-03-10 13:54 | CP.PCM.PN ---
Subjective - Date & Time of Evaluation Date of Evaluation: 03/10/18 Time of Evaluation: 08:00 - Subjective Subjective: denies fever 'reports less drainage Objective - Vital Signs/Intake and Output Vital Signs (last 24 hours): Temp Pulse Resp BP Pulse Ox 98.3 F 66 20 134/54 L 95 03/10/18 08:14 03/10/18 09:32 03/10/18 08:14 03/10/18 09:32 03/10/18 08:14 - Medications Medications: Current Medications Acetaminophen (Tylenol 325mg Tab) 325 mg PO Q4 PRN PRN Reason: Pain, Mild (1-3) Piperacillin Sod/Tazobactam (Sod 3.375 gm/ Sodium Chloride) 100 mls @ 100 mls/hr IVPB Q6H [facility]; Protocol Last Admin: 03/10/18 09:32 Dose: 100 mls/hr Metformin HCl (Glucophage) 500 mg PO BID [facility] Last Admin: 03/10/18 09:32 Dose: 500 mg Metoprolol Succinate (Toprol Xl) 100 mg PO DAILY [facility] Last Admin: 03/10/18 09:32 Dose: 100 mg Morphine Sulfate (Morphine) 2 mg IVP Q6 PRN PRN Reason: Pain, severe (8-10) Last Admin: 03/10/18 06:11 Dose: 2 mg - Labs Labs: 03/10/18 05:25 03/10/18 05:25 - Constitutional Appears: Non-toxic, Chronically Ill - Head Exam Head Exam: NORMOCEPHALIC - Eye Exam Eye Exam: absent: Scleral icterus - ENT Exam ENT Exam: Mucous Membranes Dry - Neck Exam Neck Exam: absent: Lymphadenopathy - Respiratory Exam Respiratory Exam: Decreased Breath Sounds - Cardiovascular Exam Cardiovascular Exam: REGULAR RHYTHM - GI/Abdominal Exam GI & Abdominal Exam: Distended, Soft, Hypoactive Bowel Sounds Additional comments: midline incision with excoriation and superior opening w/o drainage and an inferior opening with foul smelling purulent drainage, packing removed. Wound enters about 3cm deep the tunnels Left lateral approximately 3 cms. New packing placed with ABD over wounds. - Rectal Exam Rectal Exam: Deferred - Exam Exam: NORMAL INSPECTION - Extremities Exam Extremities Exam: absent: Pedal Edema - Back Exam Back Exam: absent: CVA tenderness (L), CVA tenderness (R) - Neurological Exam Neurological Exam: Alert, Awake, Oriented x3 - Psychiatric Exam Psychiatric exam: Depressed Assessment and Plan (1) Diverticulitis Assessment & Plan: Haartmans procedure for ruptured diverticulitis complicated by post op wound infection Recc: Repeat CT if not done to r/o need for further IR / surgical drainage will likely need ferry terminal agent IV antibiotics Status: Acute
[2018-03-11] MEDS: Morphine 4 MG/ML VIAL IVP PRN ×2 (01:30→23:08)
[2018-03-11] MEDS: Piperacillin/Tazobact 3.375 GM in Sodium Chloride 0.9% 100 ML IVPB SCH ×4 (03:11→22:57)
[2018-03-11 06:31] LABS: BASO % 0.4 % (0.0-2.0); EOS # 0.1 K/uL (0.0-0.7); EOS % 2.9 % (0.0-4.0); HEMOGLOBIN 11.6 g/dL (12.0-18.0); LYMPH # 1.7 K/uL (1.0-4.3); LYMPH % 40.4 % (20.0-40.0); MEAN CELL VOLUME 84.6 fl (80.0-94.0); MEAN CORPUSCULAR HEMOGLOBIN 27.8 pg (27.0-31.0); MEAN CORPUSCULAR HGB CONC 32.8 g/dL (33.0-37.0); MEAN PLATELET VOLUME 7.4 fl (7.2-11.7); MONO # 0.6 K/uL (0.0-0.8); MONO % 14.9 % (0.0-10.0); NEUT # 1.7 K/uL (1.8-7.0); NEUT % 41.4 % (50.0-75.0); NRBC % 0.2 % (0.0-0.0); RBC 4.17 Mil/uL (4.40-5.90); RED CELL DISTRIBUTION WIDTH 14.2 % (11.5-14.5); WHITE BLOOD COUNT 4.2 K/uL (4.8-10.8)
[2018-03-11 07:05] LABS: ALB/GLOB RATIO 0.7 (1.0-2.1); ALBUMIN 2.9 g/dL (3.5-5.0); ALT/SGPT 22 U/L (21-72); AST/SGOT 21 U/L (17-59); BLOOD UREA NITROGEN 7 mg/dl (9-20); CALCIUM 8.9 mg/dL (8.4-10.2); GFR NON-AFRICAN AMERICAN > 60
--- NOTE | 2018-03-11 09:24 | CP.PCM.PN ---
Subjective - Date & Time of Evaluation Date of Evaluation: 03/11/18 Time of Evaluation: 09:22 - Subjective Subjective: SURGERY NOTE FOR DR. KIM 52M seen and examined at bedside. No acute events overnight. Patient tolerating diet and stoma is functioning. Abdominal wound continues to express fecal purulent material from inferior pole of incision. Objective - Vital Signs/Intake and Output Vital Signs (last 24 hours): Temp Pulse Resp BP Pulse Ox 98.7 F 55 L 18 117/77 95 03/11/18 08:51 03/11/18 08:51 03/11/18 08:51 03/11/18 08:51 03/11/18 08:51 - Medications Medications: Current Medications Acetaminophen (Tylenol 325mg Tab) 325 mg PO Q4 PRN PRN Reason: Pain, Mild (1-3) Piperacillin Sod/Tazobactam (Sod 3.375 gm/ Sodium Chloride) 100 mls @ 100 mls/hr IVPB Q6H [facility]; Protocol Last Admin: 03/11/18 03:11 Dose: 100 mls/hr Metformin HCl (Glucophage) 500 mg PO BID [facility] Last Admin: 03/10/18 16:50 Dose: 500 mg Metoprolol Succinate (Toprol Xl) 100 mg PO DAILY [facility] Last Admin: 03/10/18 09:32 Dose: 100 mg Morphine Sulfate (Morphine) 2 mg IVP Q6 PRN PRN Reason: Pain, severe (8-10) Last Admin: 03/11/18 01:30 Dose: 2 mg - Labs Labs: 03/11/18 06:10 03/11/18 06:10 - Constitutional Appears: Non-toxic, No Acute Distress - Respiratory Exam Respiratory Exam: Clear to Ausculation Bilateral, NORMAL BREATHING PATTERN - Cardiovascular Exam Cardiovascular Exam: REGULAR RHYTHM, +S1, +S2 - GI/Abdominal Exam GI & Abdominal Exam: Soft, Tenderness. absent: Distended, Firm, Guarding, Rigid, Rebound Additional comments: midline wound, with fecal purulent drainage from inferior pole. - Neurological Exam Neurological Exam: Alert, Awake Assessment and Plan - Assessment and Plan (Free Text) Assessment: 52M with Enterocutaneous fistula. History of diverticulitis requiring ruth's procedure POD#21 Plan: - Continue current diet - wound care Further recs discuss with Dr. Sebastián Armendariz, PGY3
[2018-03-11] MEDS: Metoprolol Succinate 100 mg XL Tab PO SCH (10:09)
[2018-03-11] MEDS ORDERED: Iohexol 240 (50 ml) PO ONE (12:44)
[2018-03-11] MEDS ORDERED: Iohexol 300 100 ML IJ ONE (16:03)
[2018-03-11] MEDS ORDERED: Sodium Chloride 0.9% 50 ML IV ONE (16:03)
--- NOTE | 2018-03-11 18:05 | CT ---
Date of service: 03/11/2018 PROCEDURE: CT Abdomen and Pelvis with contrast HISTORY: Abdominal wound infection, r/o abscess COMPARISON: None. TECHNIQUE: Intravenous contrast dose: 100 cc Omnipaque 300. Radiation dose: Total exam DLP = 955.69 mGy-cm. This CT exam was performed using one or more of the following dose reduction techniques: Automated exposure control, adjustment of the mA and/or kV according to patient size, and/or use of iterative reconstruction technique. FINDINGS: LOWER THORAX: Unremarkable. LIVER: Hepatic steatosis. No focal masses. No intrahepatic bile duct dilatation or perihepatic ascites. GALLBLADDER AND BILE DUCTS: Unremarkable. PANCREAS: Unremarkable. No gross lesion or ductal dilatation. SPLEEN: Unremarkable. ADRENALS: Unremarkable. No mass. KIDNEYS AND URETERS: Bilateral nonobstructing renal calculi unchanged compared to the prior study. VASCULATURE: Unremarkable. No aortic aneurysm. No atherosclerotic calcification or mural plaque present. BOWEL: Diverting colostomy left lower quadrant again identified as are cutaneous and subcutaneous inflammatory changes which extend to the peritoneum. Small locules of air remain. Surgical suture line at the sigmoid identified. Diverticulosis without an acute inflammatory component or other associated pathologic process. APPENDIX: No abnormalities to suggest acute appendicitis. No right lower quadrant inflammatory processes identified. PERITONEUM: Unremarkable. No free fluid. No free air. LYMPH NODES: Unremarkable. No enlarged lymph nodes. BLADDER: Unremarkable. REPRODUCTIVE: Unremarkable. BONES: No acute fracture. OTHER FINDINGS: Persistent changes in the anterior abdominal wall. The surgical willy have been removed in the interim. Is communication between the midline surgical defect and the rectus muscle. Several locules of air remain without drainable collection. These changes extend from above the umbilicus to the pubic symphysis. IMPRESSION: 1. Postoperative changes midline described in greater detail above. Inflammatory changes are more progressive without discrete drainable collection. 2. Modest interval improvement in postoperative/inflammatory changes at the ostomy site left lower quadrant. 3. Stable nephrolithiasis, nonobstructing.
--- NOTE | 2018-03-11 21:10 | CP.PCM.PN ---
Subjective - Date & Time of Evaluation Date of Evaluation: 03/11/18 Time of Evaluation: 20:59 - Subjective Subjective: Patient with ongoing drainage from surgical wound. Feeling less abdominal pain. Objective - Vital Signs/Intake and Output Vital Signs (last 24 hours): Temp Pulse Resp BP Pulse Ox 98.4 F 56 L 18 118/75 95 03/11/18 17:14 03/11/18 17:14 03/11/18 17:14 03/11/18 17:14 03/11/18 17:14 - Medications Medications: Current Medications Acetaminophen (Tylenol 325mg Tab) 325 mg PO Q4 PRN PRN Reason: Pain, Mild (1-3) Piperacillin Sod/Tazobactam (Sod 3.375 gm/ Sodium Chloride) 100 mls @ 100 mls/hr IVPB Q6H [facility]; Protocol Last Admin: 03/11/18 16:41 Dose: 100 mls/hr Metformin HCl (Glucophage) 500 mg PO BID [facility] Last Admin: 03/11/18 10:10 Dose: 500 mg Metoprolol Succinate (Toprol Xl) 100 mg PO DAILY [facility] Last Admin: 03/11/18 10:09 Dose: 100 mg Morphine Sulfate (Morphine) 2 mg IVP Q6 PRN PRN Reason: Pain, severe (8-10) Last Admin: 03/11/18 01:30 Dose: 2 mg - Labs Labs: 03/11/18 06:10 03/11/18 06:10 - Head Exam Head Exam: ATRAUMATIC - Eye Exam Eye Exam: Normal appearance - ENT Exam ENT Exam: Mucous Membranes Moist - Respiratory Exam Respiratory Exam: Clear to Ausculation Bilateral - Cardiovascular Exam Cardiovascular Exam: REGULAR RHYTHM - GI/Abdominal Exam GI & Abdominal Exam: Soft, Normal Bowel Sounds Additional comments: a couple of sites along the incision appears to have opened in superior and inferior aspects. Purulent drainage present. Assessment and Plan (1) Superficial incisional infection of surgical site Assessment & Plan: CT failed to show drainable fluid collection. Continue wound care and IV antibiotics. Status: Acute
[2018-03-12] MEDS: Piperacillin/Tazobact 3.375 GM in Sodium Chloride 0.9% 100 ML IVPB SCH ×4 (04:45→21:51)
[2018-03-12 06:24] LABS: HEMOGLOBIN 12.1 g/dL (12.0-18.0); MEAN CELL VOLUME 86.8 fl (80.0-94.0); MEAN CORPUSCULAR HGB CONC 32.3 g/dL (33.0-37.0); RBC 4.31 Mil/uL (4.40-5.90); RED CELL DISTRIBUTION WIDTH 14.2 % (11.5-14.5); WHITE BLOOD COUNT 4.2 K/uL (4.8-10.8)
[2018-03-12 06:49] LABS: ALB/GLOB RATIO 0.8 (1.0-2.1); ALBUMIN 3.1 g/dL (3.5-5.0); ALT/SGPT 30 U/L (21-72); AST/SGOT 19 U/L (17-59); BLOOD UREA NITROGEN 9 mg/dl (9-20); CALCIUM 9.1 mg/dL (8.4-10.2); GFR NON-AFRICAN AMERICAN > 60
[2018-03-12] MEDS: Metoprolol Succinate 100 mg XL Tab PO SCH (08:58)
--- NOTE | 2018-03-12 10:15 | CP.PCM.PN ---
Subjective - Date & Time of Evaluation Date of Evaluation: 03/12/18 Time of Evaluation: 08:00 - Subjective Subjective: SURGERY NOTE FOR DR. KIM 52M seen and examined at bedside. Patient states pain is improving, states he is tolerating diet. Denies fevers or chills. Objective - Vital Signs/Intake and Output Vital Signs (last 24 hours): Temp Pulse Resp BP Pulse Ox 98.0 F 59 L 19 114/71 95 03/12/18 08:09 03/12/18 08:58 03/12/18 08:09 03/12/18 08:58 03/12/18 08:09 - Medications Medications: Current Medications Acetaminophen (Tylenol 325mg Tab) 325 mg PO Q4 PRN PRN Reason: Pain, Mild (1-3) Piperacillin Sod/Tazobactam (Sod 3.375 gm/ Sodium Chloride) 100 mls @ 100 mls/hr IVPB Q6H [facility]; Protocol Last Admin: 03/12/18 09:19 Dose: 100 mls/hr Metformin HCl (Glucophage) 500 mg PO BID [facility] Last Admin: 03/11/18 10:10 Dose: 500 mg Metoprolol Succinate (Toprol Xl) 100 mg PO DAILY [facility] Last Admin: 03/12/18 08:58 Dose: 100 mg Morphine Sulfate (Morphine) 2 mg IVP Q6 PRN PRN Reason: Pain, severe (8-10) Last Admin: 03/11/18 23:08 Dose: 2 mg - Labs Labs: 03/12/18 05:40 03/12/18 05:40 - Constitutional Appears: Non-toxic, No Acute Distress - Respiratory Exam Respiratory Exam: Clear to Ausculation Bilateral, NORMAL BREATHING PATTERN - Cardiovascular Exam Cardiovascular Exam: REGULAR RHYTHM, +S1, +S2 - GI/Abdominal Exam GI & Abdominal Exam: Soft, Tenderness. absent: Distended, Firm, Guarding, Rigid, Rebound Additional comments: Midline incisional wound- Multiple openings draining. Currently 4 midline openings draining particulated purulent fecal material. The top three openings seen to all connect. The bottom opening was noted to have a suture exposed. Malodorous drainage Assessment and Plan - Assessment and Plan (Free Text) Assessment: 52M with enterocutaneous fistula. History of diverticulitis requiring ruth's procedure POD#22 Multiple draining abdominal wall abscesses Plan: - Continue antibiotics - Local wound care - Packing of all openings after aggressive flushing with normal saline - Pack all openings in the direction of the tracts, Pack with 1/4 or 1/2 Iodoform packing - 4*4 gauze and ABD can be used for dressing Discussed with Dr. Sebastián Armendariz, PGY3
--- NOTE | 2018-03-12 10:58 | CP.PCM.PN ---
Subjective - Date & Time of Evaluation Date of Evaluation: 03/12/18 Time of Evaluation: 07:00 - Subjective Subjective: seen on rounds iv rx in progress Objective - Vital Signs/Intake and Output Vital Signs (last 24 hours): Temp Pulse Resp BP Pulse Ox 98.0 F 59 L 19 114/71 95 03/12/18 08:09 03/12/18 08:58 03/12/18 08:09 03/12/18 08:58 03/12/18 08:09 - Medications Medications: Current Medications Acetaminophen (Tylenol 325mg Tab) 325 mg PO Q4 PRN PRN Reason: Pain, Mild (1-3) Piperacillin Sod/Tazobactam (Sod 3.375 gm/ Sodium Chloride) 100 mls @ 100 mls/hr IVPB Q6H [facility]; Protocol Last Admin: 03/12/18 09:19 Dose: 100 mls/hr Metformin HCl (Glucophage) 500 mg PO BID [facility] Last Admin: 03/11/18 10:10 Dose: 500 mg Metoprolol Succinate (Toprol Xl) 100 mg PO DAILY [facility] Last Admin: 03/12/18 08:58 Dose: 100 mg Morphine Sulfate (Morphine) 2 mg IVP Q6 PRN PRN Reason: Pain, severe (8-10) Last Admin: 03/11/18 23:08 Dose: 2 mg - Labs Labs: 03/12/18 05:40 03/12/18 05:40 Assessment and Plan (1) Diverticulitis Status: Acute
--- NOTE | 2018-03-12 11:46 | CP.PCM.PCO ---
Assessment/Plan - Assessment/Plan Assessment (Free Text): CT scan reviewed with Sx team, Dr. López and Dr. Aguilera. Per Dr. Aguilera, patient will require IV antibiotics, Zosyn x 3 weeks. Picc line ordered. Per surgery, patient should preferably begin LYRIC in TCU so that they can monitor patient's abdominal wounds and fistula. Patient aware of plan and agrees. - Consults Consult Orders: Consultations 03/08/18 18:23 Wound Care [Nursing Referral for Wound Care] Routine Comment: Physician Instructions: Reason For Exam: surgical woudn dehiscence
[2018-03-12] MEDS ORDERED: Lidocaine 1% Inj (20ml) ONE (12:11)
--- NOTE | 2018-03-12 13:05 | PCM.SURG1 ---
Surgeon's Initial Post Op Note - Surgeon's Notes Surgeon: Jagdish Malloy MD Metal Filer: NONE Type of Anesthesia: Local Pre-Operative Diagnosis: Infection Operative Findings: US showed patent right basilic vein. Post-Operative Diagnosis: Infection Operation Performed: Single lumen picc right arm, 43 cm. Specimen/Specimens Removed: NONE Estimated Blood Loss: EBL {In ML}: 2 Blood Products Given: N/A Drains Used: No Drains Post-Op Condition: Fair Date of Surgery/Procedure: 03/12/18 Time of Surgery/Procedure: 13:00
--- NOTE | 2018-03-12 13:42 | VASCULAR ---
PROCEDURE: Date of procedure: 03/12/2018 Procedure: 1. Placement of a right arm PICC with ultrasound and fluoroscopic guidance, CPT 93616 2. PICC tip confirmation with spot radiograph and is in the superior vena cava Medications: 1 percent lidocaine Total Fluoro time: 2.2 Seconds Radiation: 0.54 MGy EBL: 2 cc HISTORY: Infection requiring long-term IV antibiotics TECHNIQUE: Following informed consent and procedure time-out, the patient was placed supine on the interventional table and the right arm prepped and draped in the usual sterile fashion. Ultrasound showed a patent and compressible right basilic vein. After the skin was anesthetized with lidocaine, the basilic vein was accessed with micro micropuncture technique using ultrasound guidance. A guidewire was then advanced under fluoroscopic guidance into the superior vena cava. An image documenting ultrasound guidance for vascular access was permanently saved. The length of the single-lumen 4 [place] PICC was trimmed to 43 centimeters and advanced through a peel-away sheath. The PICC was position with tip of PICC confirm a spot radiograph the superior vena cava. The PICC was secured to the patient's skin. The PICC was flushed. A biopatch and sterile dressing was applied. IMPRESSION: Placement of a single-lumen 4 [place] PICC trimmed to 43 centimeters via right basilic vein. The tip of the PICC is confirmed with spot radiograph and is in the superior vena cava.
[2018-03-12] MEDS: Morphine 4 MG/ML VIAL IVP PRN (15:11)
--- NOTE | 2018-03-12 15:58 | CP.PCM.DIS ---
Provider - Provider Date of Admission: 03/08/18 11:50 Attending physician: Bill López MD Consults: 03/07/18 19:29 Surgery [General Surgery Consult] Stat Comment: abdominal pain Consulting Provider: Ming Lowery Consulting Physician: Ming Lowery Reason for Consult: abdominal pain 03/08/18 11:38 Infectious Disease Consult Routine Comment: Consulting Provider: Napoleon Aguilera Consulting Physician: Napoleon Aguilera Reason for Consult: Abdominal wound s/p Goins's procedure with colostomy 03/08/18 18:23 Wound Care [Nursing Referral for Wound Care] Routine Comment: Physician Instructions: Reason For Exam: surgical woudn dehiscence 03/09/18 10:42 Gastroenterology Consult Routine Comment: Consulting Provider: Jamir Johnson Consulting Physician: Jamir Johnson Reason for Consult: Abdominal wound s/p Goins's procedure with colostomy Time Spent in preparation of Discharge (in minutes): 35 Diagnosis - Discharge Diagnosis (1) Enterocutaneous fistula Status: Chronic Hospital Course - Lab Results Lab Results: Micro Results 03/07/18 21:55 Blood Blood Culture - Preliminary NO GROWTH AFTER 4 DAYS 03/07/18 21:30 Blood Blood Culture - Preliminary NO GROWTH AFTER 4 DAYS 03/07/18 21:30 Incision Site Gram Stain - Final 03/07/18 21:30 Incision Site Wound Culture - Final Escherichia Coli Most Recent Lab Values WBC 4.2 K/uL (4.8-10.8) L 03/12/18 05:40 RBC 4.31 Mil/uL (4.40-5.90) L 03/12/18 05:40 Hgb 12.1 g/dL (12.0-18.0) 03/12/18 05:40 Hct 37.4 % (35.0-51.0) 03/12/18 05:40 MCV 86.8 fl (80.0-94.0) D 03/12/18 05:40 MCH 28.0 pg (27.0-31.0) 03/12/18 05:40 MCHC 32.3 g/dL (33.0-37.0) L 03/12/18 05:40 RDW 14.2 % (11.5-14.5) 03/12/18 05:40 Plt Count 234 K/uL (130-400) 03/12/18 05:40 MPV 7.4 fl (7.2-11.7) 03/11/18 06:10 Neut % (Auto) 41.4 % (50.0-75.0) L 03/11/18 06:10 Lymph % (Auto) 40.4 % (20.0-40.0) H 03/11/18 06:10 Leslie % (Auto) 14.9 % (0.0-10.0) H 03/11/18 06:10 Eos % (Auto) 2.9 % (0.0-4.0) 03/11/18 06:10 Baso % (Auto) 0.4 % (0.0-2.0) 03/11/18 06:10 Neut # (Auto) 1.7 K/uL (1.8-7.0) L 03/11/18 06:10 Lymph # (Auto) 1.7 K/uL (1.0-4.3) 03/11/18 06:10 Leslie # (Auto) 0.6 K/uL (0.0-0.8) 03/11/18 06:10 Eos # (Auto) 0.1 K/uL (0.0-0.7) 03/11/18 06:10 Baso # (Auto) 0.0 K/uL (0.0-0.2) 03/11/18 06:10 Neutrophils % (Manual) 62 % (42-75) 03/09/18 06:30 Lymphocytes % (Manual) 24 % (20-50) 03/09/18 06:30 Reactive Lymphs % 3 % (0-0) H 03/09/18 06:30 Monocytes % (Manual) 11 % (0-10) H 03/09/18 06:30 Platelet Estimate Normal (NORMAL) 03/09/18 06:30 Large Platelets Present 03/09/18 06:30 Anisocytosis (manual) Slight 03/09/18 06:30 Tear Drop Cells Slight 03/09/18 06:30 Ovalocytes Slight 03/09/18 06:30 Sodium 135 mmol/l (132-148) 03/12/18 05:40 Potassium 4.3 MMOL/L (3.6-5.0) 03/12/18 05:40 Chloride 101 mmol/L (98-107) 03/12/18 05:40 Carbon Dioxide 26 mmol/L (22-30) 03/12/18 05:40 Anion Gap 12 (10-20) 03/12/18 05:40 BUN 9 mg/dl (9-20) 03/12/18 05:40 Creatinine 1.1 mg/dl (0.8-1.5) 03/12/18 05:40 Est GFR ( Amer) > 60 03/12/18 05:40 Est GFR (Non-Af Amer) > 60 03/12/18 05:40 POC Glucose (mg/dL) 127 mg/dL (65-110) H 03/12/18 15:43 Random Glucose 123 mg/dL (75-110) H 03/12/18 05:40 Calcium 9.1 mg/dL (8.4-10.2) 03/12/18 05:40 Phosphorus 4.1 mg/dl (2.5-4.5) 03/11/18 06:10 Magnesium 1.9 MG/DL (1.6-2.3) 03/11/18 06:10 Total Bilirubin 0.2 mg/dl (0.2-1.3) 03/12/18 05:40 AST 19 U/L (17-59) 03/12/18 05:40 ALT 30 U/L (21-72) 03/12/18 05:40 Alkaline Phosphatase 59 U/L (38-126) 03/12/18 05:40 Total Protein 7.1 G/DL (6.3-8.2) 03/12/18 05:40 Albumin 3.1 g/dL (3.5-5.0) L 03/12/18 05:40 Globulin 4.0 gm/dL (2.2-3.9) H 03/12/18 05:40 Albumin/Globulin Ratio 0.8 (1.0-2.1) L 03/12/18 05:40 - Hospital Course Hospital Course: 52 yo male with PMHx HTN, DM, psoriasis, ADRIENNE presented to ED s/p Hartmans procedure (1 month ago) with incision pain, purulent discharge and foul smell x 3-4 days associated with chills. Pt was noted to have an enterocutaneous fistula. Surgery was consulted and abdominal wound was packed, ostomy care was provided and an abdominal binder was applied. As per surgery, there was no surgical intervention from their stand point. CT Abdomen was completed that was significant for midline surgical defect, several loculs of air without drainable abscess, and modest interval improvement in post operative/inflammatory changes at the ostomy site. Pt was also evaluated by ID, Dr. aguilera, who reccommended 3 weeks total of antibiotics. He will be transferred to TCU for continued IV abx and surgery will continue to follow him there. Discharge Exam - Head Exam Head Exam: ATRAUMATIC Discharge Plan - Follow Up Plan Condition: FAIR Disposition: HOME/ ROUTINE Instructions: Surgical Wound (DC), Ostomy Reversal Referrals: Napoleon Aguilera MD [Staff Provider] - Jamir Johnson MD [Staff Provider] - Ming Lowery MD [Staff Provider] -
--- NOTE | 2018-03-12 17:29 | CP.PCM.PN ---
<Joe White - Last Filed: 03/12/18 17:33> Subjective - Date & Time of Evaluation Date of Evaluation: 03/12/18 Time of Evaluation: 09:00 - Subjective Subjective: Patient seen and evaluated this morning. Reports mild abdominal discomfort, alleviated with meds. Plan for PICC today. Surgery on board. Objective - Vital Signs/Intake and Output Vital Signs (last 24 hours): Temp Pulse Resp BP Pulse Ox 98.4 F 56 L 20 123/79 95 03/12/18 16:51 03/12/18 16:51 03/12/18 16:51 03/12/18 16:51 03/12/18 16:51 - Medications Medications: Current Medications Acetaminophen (Tylenol 325mg Tab) 325 mg PO Q4 PRN PRN Reason: Pain, Mild (1-3) Piperacillin Sod/Tazobactam (Sod 3.375 gm/ Sodium Chloride) 100 mls @ 100 mls/hr IVPB Q6H [facility]; Protocol Last Admin: 03/12/18 16:46 Dose: 100 mls/hr Metformin HCl (Glucophage) 500 mg PO BID [facility] Last Admin: 03/11/18 10:10 Dose: 500 mg Metoprolol Succinate (Toprol Xl) 100 mg PO DAILY [facility] Last Admin: 03/12/18 08:58 Dose: 100 mg Morphine Sulfate (Morphine) 2 mg IVP Q6 PRN PRN Reason: Pain, severe (8-10) Last Admin: 03/12/18 15:11 Dose: 2 mg - Labs Labs: 03/12/18 05:40 03/12/18 05:40 - Constitutional Appears: Non-toxic, No Acute Distress - Eye Exam Eye Exam: Normal appearance - ENT Exam ENT Exam: Mucous Membranes Moist - Respiratory Exam Respiratory Exam: Clear to Ausculation Bilateral - Cardiovascular Exam Cardiovascular Exam: REGULAR RHYTHM - GI/Abdominal Exam GI & Abdominal Exam: Soft, Normal Bowel Sounds. absent: Guarding, Tenderness Additional comments: mid abdominal wound w/ purulent drainage - Extremities Exam Extremities Exam: Normal Capillary Refill. absent: Pedal Edema - Neurological Exam Neurological Exam: Alert - Psychiatric Exam Psychiatric exam: Normal Affect Assessment and Plan (1) Enterocutaneous fistula Status: Chronic - Assessment and Plan (Free Text) Assessment: 52 yo male with PMHx HTN, DM, psoriasis, ADRIENNE presented to ED s/p Hartmans procedure (1 month ago) with incision pain, purulent discharge and foul smell x 3-4 days associated with chills. Pt was noted to have an enterocutaneous fistula. -Surgery was consulted and abdominal wound was packed, ostomy care, abdominal binder, no surgical intervention 0CT Abdomen was completed that was significant for midline surgical defect, several loculs of air without drainable abscess, and modest interval improvement in post operative/inflammatory changes at the ostomy site -Pt was also evaluated by ID, Dr. watson, recommends 3 weeks total of antibiotics -Pending transfer to either subacute rehab vs TCU for continued IV ABx (awaiting case monitor's arrangements -pain control prn -rest of plan as ordered <Bill López - Last Filed: 03/12/18 19:19> Objective - Vital Signs/Intake and Output Vital Signs (last 24 hours): Temp Pulse Resp BP Pulse Ox 98.4 F 56 L 20 123/79 95 03/12/18 16:51 03/12/18 16:51 03/12/18 16:51 03/12/18 16:51 03/12/18 16:51 - Medications Medications: Current Medications Acetaminophen (Tylenol 325mg Tab) 325 mg PO Q4 PRN PRN Reason: Pain, Mild (1-3) Piperacillin Sod/Tazobactam (Sod 3.375 gm/ Sodium Chloride) 100 mls @ 100 mls/hr IVPB Q6H [facility]; Protocol Last Admin: 03/12/18 16:46 Dose: 100 mls/hr Metformin HCl (Glucophage) 500 mg PO BID [facility] Last Admin: 03/11/18 10:10 Dose: 500 mg Metoprolol Succinate (Toprol Xl) 100 mg PO DAILY [facility] Last Admin: 03/12/18 08:58 Dose: 100 mg Morphine Sulfate (Morphine) 2 mg IVP Q6 PRN PRN Reason: Pain, severe (8-10) Last Admin: 03/12/18 15:11 Dose: 2 mg - Labs Labs: 03/12/18 05:40 03/12/18 05:40 Attending/Attestation - Attestation I have personally seen and examined this patient.: Yes I have fully participated in the care of the patient.: Yes I have reviewed all pertinent clinical information, including history, physical exam and plan: Yes
--- NOTE | 2018-03-12 21:35 | CP.PCM.PN ---
Subjective - Date & Time of Evaluation Date of Evaluation: 03/12/18 Time of Evaluation: 07:00 - Subjective Subjective: no drainable abscess cont iv antibiotics and wound care Objective - Vital Signs/Intake and Output Vital Signs (last 24 hours): Temp Pulse Resp BP Pulse Ox 98.4 F 56 L 20 123/79 95 03/12/18 16:51 03/12/18 16:51 03/12/18 16:51 03/12/18 16:51 03/12/18 16:51 - Medications Medications: Current Medications Acetaminophen (Tylenol 325mg Tab) 325 mg PO Q4 PRN PRN Reason: Pain, Mild (1-3) Piperacillin Sod/Tazobactam (Sod 3.375 gm/ Sodium Chloride) 100 mls @ 100 mls/hr IVPB Q6H [facility]; Protocol Last Admin: 03/12/18 16:46 Dose: 100 mls/hr Metformin HCl (Glucophage) 500 mg PO BID [facility] Last Admin: 03/11/18 10:10 Dose: 500 mg Metoprolol Succinate (Toprol Xl) 100 mg PO DAILY [facility] Last Admin: 03/12/18 08:58 Dose: 100 mg Morphine Sulfate (Morphine) 2 mg IVP Q6 PRN PRN Reason: Pain, severe (8-10) Last Admin: 03/12/18 15:11 Dose: 2 mg - Labs Labs: 03/12/18 05:40 03/12/18 05:40 Assessment and Plan (1) Diverticulitis Status: Acute
[2018-03-13] MEDS: Morphine 4 MG/ML VIAL IVP PRN (02:41)
[2018-03-13] MEDS: Piperacillin/Tazobact 3.375 GM in Sodium Chloride 0.9% 100 ML IVPB SCH ×2 (03:00→09:44)
[2018-03-13 08:13] VITALS: RESP 20; TEMP 97.7; O2SAT 96
[2018-03-13] MEDS: Metoprolol Succinate 100 mg XL Tab PO SCH (08:55)
[2018-03-13 08:57] VITALS: BP 117/76; PULSE 56
--- NOTE | 2018-03-13 10:45 | CP.PCM.PN ---
Subjective - Date & Time of Evaluation Date of Evaluation: 03/13/18 Time of Evaluation: 10:42 - Subjective Subjective: General Surgery Progress Note for Dr. Lowery 52M seen and evaluated at bedside this morning. No acute events overnight. Pain well controlled. Dressing changes tolerated. Denies f/c, n/v, SOB, CP, or urinary symptoms. Objective - Vital Signs/Intake and Output Vital Signs (last 24 hours): Temp Pulse Resp BP Pulse Ox 97.7 F 56 L 20 117/76 96 03/13/18 08:13 03/13/18 08:55 03/13/18 08:13 03/13/18 08:55 03/13/18 08:13 - Medications Medications: Current Medications Acetaminophen (Tylenol 325mg Tab) 325 mg PO Q4 PRN PRN Reason: Pain, Mild (1-3) Piperacillin Sod/Tazobactam (Sod 3.375 gm/ Sodium Chloride) 100 mls @ 100 mls/hr IVPB Q6H [facility]; Protocol Last Admin: 03/13/18 09:44 Dose: 100 mls/hr Metformin HCl (Glucophage) 500 mg PO BID [facility] Last Admin: 03/11/18 10:10 Dose: 500 mg Metoprolol Succinate (Toprol Xl) 100 mg PO DAILY [facility] Last Admin: 03/13/18 08:55 Dose: 100 mg Morphine Sulfate (Morphine) 2 mg IVP Q6 PRN PRN Reason: Pain, severe (8-10) Last Admin: 03/13/18 02:41 Dose: 2 mg - Labs Labs: 03/12/18 05:40 03/12/18 05:40 - Constitutional Appears: Well, Non-toxic, No Acute Distress - Head Exam Head Exam: ATRAUMATIC, NORMAL INSPECTION, NORMOCEPHALIC - Eye Exam Eye Exam: EOMI - ENT Exam ENT Exam: Mucous Membranes Moist - Respiratory Exam Respiratory Exam: NORMAL BREATHING PATTERN. absent: Respiratory Distress - GI/Abdominal Exam GI & Abdominal Exam: Soft, Normal Bowel Sounds. absent: Tenderness Additional comments: Midline incisional wounds with drainage of serosanguinous, purulent, feculant, foul smelling fluid The bottom opening was noted to have a suture exposed - Neurological Exam Neurological Exam: Alert, Awake Assessment and Plan - Assessment and Plan (Free Text) Assessment: 52M w/ enterocutaneous fistula and multiple abdominal wall abscesses s/p ruth's procedure POD#23 Plan: Continue Abx Local wound care - Packing of all openings after aggressive flushing with normal saline - Pack all openings in the direction of the tracts, Pack with 1/4 or 1/2 Iodoform packing - 4*4 gauze and ABD can be used for dressing Patient to go to TCU today D/w Dr. Sebastián Penn PGY1
[2018-03-13 12:04] LABS: HEMOGLOBIN 12.5 g/dL (12.0-18.0); MEAN CELL VOLUME 86.1 fl (80.0-94.0); MEAN CORPUSCULAR HEMOGLOBIN 27.9 pg (27.0-31.0); MEAN CORPUSCULAR HGB CONC 32.5 g/dL (33.0-37.0); RBC 4.46 Mil/uL (4.40-5.90); RED CELL DISTRIBUTION WIDTH 14.2 % (11.5-14.5); WHITE BLOOD COUNT 4.7 K/uL (4.8-10.8)
--- NOTE | 2018-03-13 13:00 | CP.PCM.PN ---
Subjective - Date & Time of Evaluation Date of Evaluation: 03/13/18 Time of Evaluation: 09:00 - Subjective Subjective: less drainage no fever alert awake NAD Objective - Vital Signs/Intake and Output Vital Signs (last 24 hours): Temp Pulse Resp BP Pulse Ox 97.7 F 56 L 20 117/76 96 03/13/18 08:13 03/13/18 08:55 03/13/18 08:13 03/13/18 08:55 03/13/18 08:13 - Medications Medications: Current Medications Acetaminophen (Tylenol 325mg Tab) 325 mg PO Q4 PRN PRN Reason: Pain, Mild (1-3) Piperacillin Sod/Tazobactam (Sod 3.375 gm/ Sodium Chloride) 100 mls @ 100 mls/hr IVPB Q6H [facility]; Protocol Last Admin: 03/13/18 09:44 Dose: 100 mls/hr Metformin HCl (Glucophage) 500 mg PO BID [facility] Last Admin: 03/11/18 10:10 Dose: 500 mg Metoprolol Succinate (Toprol Xl) 100 mg PO DAILY [facility] Last Admin: 03/13/18 08:55 Dose: 100 mg Morphine Sulfate (Morphine) 2 mg IVP Q6 PRN PRN Reason: Pain, severe (8-10) Last Admin: 03/13/18 02:41 Dose: 2 mg - Labs Labs: 03/13/18 11:58 03/12/18 05:40 - Constitutional Appears: Non-toxic, Chronically Ill - Head Exam Head Exam: NORMOCEPHALIC - Eye Exam Eye Exam: absent: Scleral icterus - ENT Exam ENT Exam: Mucous Membranes Dry - Neck Exam Neck Exam: absent: Lymphadenopathy - Respiratory Exam Respiratory Exam: Decreased Breath Sounds - Cardiovascular Exam Cardiovascular Exam: REGULAR RHYTHM - GI/Abdominal Exam GI & Abdominal Exam: Distended, Soft, Tenderness, Hypoactive Bowel Sounds Additional comments: + colostomy left side - Rectal Exam Rectal Exam: Deferred - Exam Exam: NORMAL INSPECTION Assessment and Plan (1) Diverticulitis Status: Acute - Assessment and Plan (Free Text) Assessment: cont iv antibiotic for post op wound infection
--- NOTE | 2018-03-13 18:19 | CP.PCM.DIS ---
Provider - Provider Date of Admission: 03/08/18 11:50 Attending physician: Bill López MD Consults: 03/07/18 19:29 Surgery [General Surgery Consult] Stat Comment: abdominal pain Consulting Provider: Ming Lowery Consulting Physician: Ming Lowery Reason for Consult: abdominal pain 03/08/18 11:38 Infectious Disease Consult Routine Comment: Consulting Provider: Napoleon Aguilera Consulting Physician: Napoleon Aguilera Reason for Consult: Abdominal wound s/p Goins's procedure with colostomy 03/08/18 18:23 Wound Care [Nursing Referral for Wound Care] Routine Comment: Physician Instructions: Reason For Exam: surgical woudn dehiscence 03/09/18 10:42 Gastroenterology Consult Routine Comment: Consulting Provider: Jamir Johnson Consulting Physician: Jamir Johnson Reason for Consult: Abdominal wound s/p Goins's procedure with colostomy Time Spent in preparation of Discharge (in minutes): 35 Diagnosis - Discharge Diagnosis (1) Enterocutaneous fistula Status: Chronic Hospital Course - Lab Results Lab Results: Micro Results 03/07/18 21:55 Blood Blood Culture - Final NO GROWTH AFTER 5 DAYS 03/07/18 21:55 Blood Gram Stain - Final TEST NOT PERFORMED 03/07/18 21:30 Blood Blood Culture - Final NO GROWTH AFTER 5 DAYS 03/07/18 21:30 Blood Gram Stain - Final TEST NOT PERFORMED 03/07/18 21:30 Incision Site Gram Stain - Final 03/07/18 21:30 Incision Site Wound Culture - Final Escherichia Coli Most Recent Lab Values WBC 4.7 K/uL (4.8-10.8) L 03/13/18 11:58 RBC 4.46 Mil/uL (4.40-5.90) 03/13/18 11:58 Hgb 12.5 g/dL (12.0-18.0) 03/13/18 11:58 Hct 38.4 % (35.0-51.0) 03/13/18 11:58 MCV 86.1 fl (80.0-94.0) 03/13/18 11:58 MCH 27.9 pg (27.0-31.0) 03/13/18 11:58 MCHC 32.5 g/dL (33.0-37.0) L 03/13/18 11:58 RDW 14.2 % (11.5-14.5) 03/13/18 11:58 Plt Count 237 K/uL (130-400) 03/13/18 11:58 MPV 7.4 fl (7.2-11.7) 03/11/18 06:10 Neut % (Auto) 41.4 % (50.0-75.0) L 03/11/18 06:10 Lymph % (Auto) 40.4 % (20.0-40.0) H 03/11/18 06:10 Garland % (Auto) 14.9 % (0.0-10.0) H 03/11/18 06:10 Eos % (Auto) 2.9 % (0.0-4.0) 03/11/18 06:10 Baso % (Auto) 0.4 % (0.0-2.0) 03/11/18 06:10 Neut # (Auto) 1.7 K/uL (1.8-7.0) L 03/11/18 06:10 Lymph # (Auto) 1.7 K/uL (1.0-4.3) 03/11/18 06:10 Garland # (Auto) 0.6 K/uL (0.0-0.8) 03/11/18 06:10 Eos # (Auto) 0.1 K/uL (0.0-0.7) 03/11/18 06:10 Baso # (Auto) 0.0 K/uL (0.0-0.2) 03/11/18 06:10 Neutrophils % (Manual) 62 % (42-75) 03/09/18 06:30 Lymphocytes % (Manual) 24 % (20-50) 03/09/18 06:30 Reactive Lymphs % 3 % (0-0) H 03/09/18 06:30 Monocytes % (Manual) 11 % (0-10) H 03/09/18 06:30 Platelet Estimate Normal (NORMAL) 03/09/18 06:30 Large Platelets Present 03/09/18 06:30 Anisocytosis (manual) Slight 03/09/18 06:30 Tear Drop Cells Slight 03/09/18 06:30 Ovalocytes Slight 03/09/18 06:30 Sodium 135 mmol/l (132-148) 03/12/18 05:40 Potassium 4.3 MMOL/L (3.6-5.0) 03/12/18 05:40 Chloride 101 mmol/L (98-107) 03/12/18 05:40 Carbon Dioxide 26 mmol/L (22-30) 03/12/18 05:40 Anion Gap 12 (10-20) 03/12/18 05:40 BUN 9 mg/dl (9-20) 03/12/18 05:40 Creatinine 1.1 mg/dl (0.8-1.5) 03/12/18 05:40 Est GFR ( Amer) > 60 03/12/18 05:40 Est GFR (Non-Af Amer) > 60 03/12/18 05:40 POC Glucose (mg/dL) 107 mg/dL (65-110) 03/13/18 11:54 Random Glucose 123 mg/dL (75-110) H 03/12/18 05:40 Calcium 9.1 mg/dL (8.4-10.2) 03/12/18 05:40 Phosphorus 4.1 mg/dl (2.5-4.5) 03/11/18 06:10 Magnesium 1.9 MG/DL (1.6-2.3) 03/11/18 06:10 Total Bilirubin 0.2 mg/dl (0.2-1.3) 03/12/18 05:40 AST 19 U/L (17-59) 03/12/18 05:40 ALT 30 U/L (21-72) 03/12/18 05:40 Alkaline Phosphatase 59 U/L (38-126) 03/12/18 05:40 Total Protein 7.1 G/DL (6.3-8.2) 03/12/18 05:40 Albumin 3.1 g/dL (3.5-5.0) L 03/12/18 05:40 Globulin 4.0 gm/dL (2.2-3.9) H 03/12/18 05:40 Albumin/Globulin Ratio 0.8 (1.0-2.1) L 03/12/18 05:40 - Hospital Course Hospital Course: 52 yo male with PMHx HTN, DM, psoriasis, ADRIENNE presented to ED s/p Hartmans procedure (1 month ago) with incision pain, purulent discharge and noted to have enterocutaneous fistula/ wound dehiscence. Was seen by surgery who did not recommend any surgical intervention. Id was consulted and patient was started on Zosyn to be completed for 3 weeks. He had Picc line inserted and was transferred to TCU for the remainder of his IV antiboitic treatment. Discharge Exam - Head Exam Head Exam: ATRAUMATIC, NORMAL INSPECTION, NORMOCEPHALIC - Eye Exam Eye Exam: Normal appearance - ENT Exam ENT Exam: Mucous Membranes Moist - Respiratory Exam Respiratory Exam: NORMAL BREATHING PATTERN - Cardiovascular Exam Cardiovascular Exam: REGULAR RHYTHM - GI/Abdominal Exam Additional comments: mid abdominal wound w/ purulent drainage - Extremities Exam Additional comments: R. Picc line, in tact - Neurological Exam Neurological exam: Alert, Oriented x3 - Psychiatric Exam Psychiatric exam: Normal Affect - Skin Skin Exam: Normal Color Discharge Plan - Discharge Medications Prescriptions: Piperacillin/Tazobact 3.375 gm [Zosyn 3.375 in NS 100ml] 3.375 gm IVPB Q6 #84 bag - Follow Up Plan Condition: FAIR Disposition: TRANSF TO SNF Instructions: Surgical Wound (DC), Ostomy Reversal Referrals: Napoleon Aguilera MD [Staff Provider] - Jamir Johnson MD [Staff Provider] - Ming Lowery MD [Staff Provider] -
== END 2018-03-13 14:40 | DRG 580 ==
LOC: H.ER 17:08 → H.ERHOLD 22:03 → H.MEDSURG1 03-08 00:07 → OBSVTOIN 03-08 11:50
PROVIDERS: ADMIT Family Medicine; ATTEND Family Medicine
PROC: 02HV33Z Insertion of Infusion Device into Superior Vena Cava, Percutaneous Approach (ICD-10-PCS; principal; 2018-03-12)
DX: T81.41XA Infection following a procedure, superficial incisional surgical site, initial encounter (principal); T81.31XA Disruption of external operation (surgical) wound, not elsewhere classified, initial encounter; K63.2 Fistula of intestine; L02.211 Cutaneous abscess of abdominal wall; Z93.3 Colostomy status; E11.9 Type 2 diabetes mellitus without complications; K57.92 Diverticulitis of intestine, part unspecified, without perforation or abscess without bleeding; G47.33 Obstructive sleep apnea (adult) (pediatric); L40.9 Psoriasis, unspecified; Z79.84 Long term (current) use of oral hypoglycemic drugs; J45.909 Unspecified asthma, uncomplicated; I10 Essential (primary) hypertension

== ENCOUNTER 2018-03-13 13:24 | Inpatient (IN) | payer MEDICAID ==
[2018-03-13 13:26] VITALS: BMI 33.9
[2018-03-13 16:51] VITALS: RESP 20
[2018-03-13] MEDS: Piperacillin/Tazobact 3.375 GM in Sodium Chloride 0.9% 100 ML IVPB SCH (17:07)
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
[2018-03-14] MEDS: Piperacillin/Tazobact 3.375 GM in Sodium Chloride 0.9% 100 ML IVPB SCH ×4 (00:02→17:42)
--- NOTE | 2018-03-14 08:14 | CP.PCM.PN ---
Subjective - Date & Time of Evaluation Date of Evaluation: 03/14/18 Time of Evaluation: 08:11 - Subjective Subjective: SURGERY NOTE FOR DR. KIM 52M seen and examined at bedside. Patient doing well, pain controlled, tolerating diet, having stoma function. Midline incision continues to expresses fecalent purulent material from four openings. Denies fevers and chills. Objective - Vital Signs/Intake and Output Vital Signs (last 24 hours): Temp Pulse Resp BP Pulse Ox 98.8 F 60 20 91/61 L 96 03/13/18 19:46 03/13/18 19:46 03/13/18 19:46 03/13/18 19:46 03/13/18 19:46 - Medications Medications: Current Medications Acetaminophen (Tylenol 325mg Tab) 325 mg PO Q4 PRN PRN Reason: Pain, Mild (1-3) Piperacillin Sod/Tazobactam (Sod 3.375 gm/ Sodium Chloride) 100 mls @ 100 mls/hr IVPB 0600,1200,1800,0000 [facility]; Protocol Last Admin: 03/14/18 05:46 Dose: 100 mls/hr Metformin HCl (Glucophage) 500 mg PO BIDWM [facility] Last Admin: 03/13/18 16:40 Dose: Not Given Metoprolol Succinate (Toprol Xl) 100 mg PO DAILY [facility] Morphine Sulfate (Morphine) 2 mg IVP Q6 PRN PRN Reason: Pain, severe (8-10) Last Admin: 03/14/18 00:02 Dose: 2 mg - Constitutional Appears: Non-toxic, No Acute Distress - Respiratory Exam Respiratory Exam: Clear to Ausculation Bilateral, NORMAL BREATHING PATTERN - Cardiovascular Exam Cardiovascular Exam: REGULAR RHYTHM, +S1, +S2 - GI/Abdominal Exam GI & Abdominal Exam: Soft, Tenderness. absent: Distended, Firm, Guarding, Rigid, Rebound Additional comments: Stoma is pink and patent - midline incision draining fecalent, purulent material from four openings. Output has decreased. Packing in place. 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 Sebastián Armendariz, PGY3
[2018-03-14] MEDS: Metoprolol Succinate 100 mg XL Tab PO SCH (09:57)
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
--- NOTE | 2018-03-14 17:26 | CP.PCM.PN ---
Subjective - Date & Time of Evaluation Date of Evaluation: 03/14/18 Time of Evaluation: 10:00 - Subjective Subjective: Patient without abdominal pain Feeling stronger. Objective - Vital Signs/Intake and Output Vital Signs (last 24 hours): Temp Pulse Resp BP Pulse Ox 98.8 F 50 L 20 107/64 96 03/14/18 16:27 03/14/18 16:27 03/14/18 16:27 03/14/18 16:27 03/14/18 16:27 - Medications Medications: Current Medications Acetaminophen (Tylenol 325mg Tab) 325 mg PO Q4 PRN PRN Reason: Pain, Mild (1-3) Piperacillin Sod/Tazobactam (Sod 3.375 gm/ Sodium Chloride) 100 mls @ 100 mls/hr IVPB 0600,1200,1800,0000 [facility]; Protocol Last Admin: 03/14/18 12:47 Dose: 100 mls/hr Metformin HCl (Glucophage) 500 mg PO BIDWM [facility] Last Admin: 03/14/18 16:48 Dose: 500 mg Metoprolol Succinate (Toprol Xl) 100 mg PO DAILY [facility] Last Admin: 03/14/18 09:57 Dose: 100 mg Morphine Sulfate (Morphine) 2 mg IVP Q6 PRN PRN Reason: Pain, severe (8-10) Last Admin: 03/14/18 00:02 Dose: 2 mg - Head Exam Head Exam: ATRAUMATIC - Eye Exam Eye Exam: Normal appearance Pupil Exam: PERRL - ENT Exam ENT Exam: Normal Exam - Neck Exam Neck Exam: Full ROM - Respiratory Exam Respiratory Exam: Clear to Ausculation Bilateral - Cardiovascular Exam Cardiovascular Exam: REGULAR RHYTHM - GI/Abdominal Exam GI & Abdominal Exam: Soft, Normal Bowel Sounds. absent: Tenderness Assessment and Plan (1) Superficial incisional infection of surgical site Assessment & Plan: Receiving daily wound care and IV abx. Still with significant drainage though may be lessening somewhat. continue current care. Status: Acute
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
[2018-03-15] MEDS: Piperacillin/Tazobact 3.375 GM in Sodium Chloride 0.9% 100 ML IVPB SCH ×5 (00:41→23:54)
--- NOTE | 2018-03-15 07:42 | CP.PCM.PN ---
Subjective - Date & Time of Evaluation Date of Evaluation: 03/15/18 Time of Evaluation: 07:40 - Subjective Subjective: General Surgery Consult Note for Dr. Lowery 52M seen and evaluated this morning at bedside. No acute events overnight. No complaints this morning. Patient states pain is well controlled. Tolerating diet. Ostomy functioning. Continues to have purulent, serosanguinous drainage from midline incision. Denies f/c, n/v/d, SOB, CP, or urinary symptoms. Objective - Vital Signs/Intake and Output Vital Signs (last 24 hours): Temp Pulse Resp BP Pulse Ox 98.6 F 52 L 20 115/70 96 03/14/18 19:47 03/14/18 19:47 03/14/18 19:47 03/14/18 19:47 03/14/18 19:47 - Medications Medications: Current Medications Acetaminophen (Tylenol 325mg Tab) 325 mg PO Q4 PRN PRN Reason: Pain, Mild (1-3) Acetaminophen (Tylenol 325mg Tab) 650 mg PO Q6 PRN PRN Reason: Pain, moderate (4-7) Last Admin: 03/14/18 21:20 Dose: 650 mg Piperacillin Sod/Tazobactam (Sod 3.375 gm/ Sodium Chloride) 100 mls @ 100 mls/hr IVPB 0600,1200,1800,0000 [facility]; Protocol Last Admin: 03/15/18 05:46 Dose: 100 mls/hr Metformin HCl (Glucophage) 500 mg PO BIDWM [facility] Last Admin: 03/14/18 16:48 Dose: 500 mg Metoprolol Succinate (Toprol Xl) 100 mg PO DAILY [facility] Last Admin: 03/14/18 09:57 Dose: 100 mg Morphine Sulfate (Morphine) 2 mg IVP Q6 PRN PRN Reason: Pain, severe (8-10) Last Admin: 03/14/18 00:02 Dose: 2 mg Polyethylene Glycol (Miralax) 17 gm PO DAILY [facility] - Constitutional Appears: Well, Non-toxic, No Acute Distress - Head Exam Head Exam: ATRAUMATIC, NORMAL INSPECTION, NORMOCEPHALIC - Eye Exam Eye Exam: EOMI - ENT Exam ENT Exam: Mucous Membranes Moist - Respiratory Exam Respiratory Exam: NORMAL BREATHING PATTERN. absent: Respiratory Distress - Cardiovascular Exam Cardiovascular Exam: Tachycardia - GI/Abdominal Exam GI & Abdominal Exam: Soft, Normal Bowel Sounds. absent: Tenderness Additional comments: Purulent serosanguinous discharge from midline incisions at 4 distinct area - all likely connected Erythema and mild tenderness around drainage site Ostomy pink, patient and productive - Neurological Exam Neurological Exam: Alert, Awake - Psychiatric Exam Psychiatric exam: Normal Affect, Normal Mood Assessment and Plan - Assessment and Plan (Free Text) Assessment: 52M w/ enterocutaneous fistula and multiple abdominal abscesses s/p Goins's POD25 Plan: Continue IV Abx Local wound care - Packing of all openings after aggressive flushing with normal saline - Pack all openings in the direction of the tracts, Pack with 1/4 Iodoform packing - 4*4 gauze and ABD can be used for dressing - Twice a day Further recommendations per Dr. Sebastián Penn PGY1
[2018-03-15] MEDS: Metoprolol Succinate 100 mg XL Tab PO SCH (08:09)
--- NOTE | 2018-03-15 10:55 | CARD ---
APPROVED REPORT Date of service: 03/15/2018 EKG Measurement Heart [id number] CT 154P-5 [id number] <Conclusion> Sinus bradycardia ST & T wave abnormality, consider anterolateral ischemia Abnormal ECG
[2018-03-15] MEDS: POLYETHYLENE GLYCOL 3350 17 GM/Dose PACKET PO SCH (11:22)
--- NOTE | 2018-03-15 12:45 | CP.PCM.PN ---
Subjective - Date & Time of Evaluation Date of Evaluation: 03/15/18 Time of Evaluation: 09:00 - Subjective Subjective: afebrile alert nad Objective - Vital Signs/Intake and Output Vital Signs (last 24 hours): Temp Pulse Resp BP Pulse Ox 97.5 F L 49 L 20 115/74 97 03/15/18 09:00 03/15/18 09:00 03/15/18 09:00 03/15/18 09:00 03/15/18 09:00 - Medications Medications: Current Medications Acetaminophen (Tylenol 325mg Tab) 325 mg PO Q4 PRN PRN Reason: Pain, Mild (1-3) Acetaminophen (Tylenol 325mg Tab) 650 mg PO Q6 PRN PRN Reason: Pain, moderate (4-7) Last Admin: 03/14/18 21:20 Dose: 650 mg Piperacillin Sod/Tazobactam (Sod 3.375 gm/ Sodium Chloride) 100 mls @ 100 mls/hr IVPB 0600,1200,1800,0000 [facility]; Protocol Last Admin: 03/15/18 11:22 Dose: 100 mls/hr Metformin HCl (Glucophage) 500 mg PO BIDWM [facility] Last Admin: 03/15/18 08:08 Dose: 500 mg Metoprolol Succinate (Toprol Xl) 100 mg PO DAILY [facility] Last Admin: 03/15/18 08:09 Dose: Not Given Morphine Sulfate (Morphine) 2 mg IVP Q6 PRN PRN Reason: Pain, severe (8-10) Last Admin: 03/14/18 00:02 Dose: 2 mg Polyethylene Glycol (Miralax) 17 gm PO DAILY [facility] Last Admin: 03/15/18 11:22 Dose: 17 gm - Constitutional Appears: Non-toxic, Chronically Ill - Head Exam Head Exam: NORMOCEPHALIC - Eye Exam Eye Exam: absent: Scleral icterus - ENT Exam ENT Exam: Mucous Membranes Dry - Neck Exam Neck Exam: absent: Lymphadenopathy - Respiratory Exam Respiratory Exam: Decreased Breath Sounds - Cardiovascular Exam Cardiovascular Exam: REGULAR RHYTHM - GI/Abdominal Exam GI & Abdominal Exam: Distended - Rectal Exam Rectal Exam: Deferred - Exam Exam: NORMAL INSPECTION Assessment and Plan - Assessment and Plan (Free Text) Assessment: cont wound care IV antibiotics psych eval- depression
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
--- NOTE | 2018-03-15 18:22 | CP.PCM.PN ---
Subjective - Date & Time of Evaluation Date of Evaluation: 03/15/18 Time of Evaluation: 18:22 - Subjective Subjective: Patient seen in the room comfortable tolerating dressing changes feels that the pain regimen is appropriate and working for him continue current care Objective - Vital Signs/Intake and Output Vital Signs (last 24 hours): Temp Pulse Resp BP Pulse Ox 98.5 F 77 20 115/75 95 03/15/18 15:38 03/15/18 15:38 03/15/18 15:38 03/15/18 15:38 03/15/18 15:38 - Medications Medications: Current Medications Acetaminophen (Tylenol 325mg Tab) 325 mg PO Q4 PRN PRN Reason: Pain, Mild (1-3) Acetaminophen (Tylenol 325mg Tab) 650 mg PO Q6 PRN PRN Reason: Pain, moderate (4-7) Last Admin: 03/14/18 21:20 Dose: 650 mg Piperacillin Sod/Tazobactam (Sod 3.375 gm/ Sodium Chloride) 100 mls @ 100 mls/hr IVPB 0600,1200,1800,0000 [facility]; Protocol Last Admin: 03/15/18 17:46 Dose: 100 mls/hr Metformin HCl (Glucophage) 500 mg PO BIDWM [facility] Last Admin: 03/15/18 17:47 Dose: 500 mg Metoprolol Succinate (Toprol Xl) 100 mg PO DAILY [facility] Last Admin: 03/15/18 08:09 Dose: Not Given Morphine Sulfate (Morphine) 2 mg IVP Q6 PRN PRN Reason: Pain, severe (8-10) Last Admin: 03/15/18 12:59 Dose: 2 mg Polyethylene Glycol (Miralax) 17 gm PO DAILY [facility] Last Admin: 03/15/18 11:22 Dose: 17 gm
[2018-03-16] MEDS: Piperacillin/Tazobact 3.375 GM in Sodium Chloride 0.9% 100 ML IVPB SCH ×3 (06:02→17:01)
--- NOTE | 2018-03-16 07:08 | CP.PCM.PCO ---
Physician Communication Note - Physician Communication Note Physician Communication Note: Patient seen and examined. Will continue daily dressing changes.
[2018-03-16] MEDS: POLYETHYLENE GLYCOL 3350 17 GM/Dose PACKET PO SCH (08:55)
[2018-03-17] MEDS: Piperacillin/Tazobact 3.375 GM in Sodium Chloride 0.9% 100 ML IVPB SCH ×4 (02:12→17:41)
[2018-03-17] MEDS: POLYETHYLENE GLYCOL 3350 17 GM/Dose PACKET PO SCH (08:39)
--- NOTE | 2018-03-17 12:12 | CP.PCM.PN ---
Subjective - Date & Time of Evaluation Date of Evaluation: 03/15/18 Time of Evaluation: 09:00 - Subjective Subjective: Patient with minimal abdominal pain. Objective - Vital Signs/Intake and Output Vital Signs (last 24 hours): Temp Pulse Resp BP Pulse Ox 98.3 F 71 20 127/85 99 03/17/18 08:34 03/17/18 08:34 03/17/18 08:34 03/17/18 08:34 03/17/18 08:34 - Medications Medications: Current Medications Acetaminophen (Tylenol 325mg Tab) 325 mg PO Q4 PRN PRN Reason: Pain, Mild (1-3) Acetaminophen (Tylenol 325mg Tab) 650 mg PO Q6 PRN PRN Reason: Pain, moderate (4-7) Last Admin: 03/14/18 21:20 Dose: 650 mg Piperacillin Sod/Tazobactam (Sod 3.375 gm/ Sodium Chloride) 100 mls @ 100 mls/hr IVPB 0600,1200,1800,0000 [facility]; Protocol Last Admin: 03/17/18 06:10 Dose: 100 mls/hr Metformin HCl (Glucophage) 500 mg PO BIDWM [facility] Last Admin: 03/17/18 08:39 Dose: 500 mg Metoprolol Succinate (Toprol Xl) 100 mg PO DAILY [facility] Last Admin: 03/15/18 08:09 Dose: Not Given Morphine Sulfate (Morphine) 2 mg IVP Q6 PRN PRN Reason: Pain, severe (8-10) Last Admin: 03/17/18 10:46 Dose: 2 mg Polyethylene Glycol (Miralax) 17 gm PO DAILY [facility] Last Admin: 03/17/18 08:39 Dose: 17 gm Trazodone HCl (Desyrel) 50 mg PO HS [facility] Last Admin: 03/16/18 21:23 Dose: 50 mg Venlafaxine HCl (Effexor) 37.5 mg PO DAILY [facility] - Head Exam Head Exam: ATRAUMATIC - Eye Exam Eye Exam: PERRL - ENT Exam ENT Exam: Normal Exam - Neck Exam Neck Exam: Full ROM - Respiratory Exam Respiratory Exam: Clear to Ausculation Bilateral - GI/Abdominal Exam GI & Abdominal Exam: Soft. absent: Tenderness Assessment and Plan (1) Superficial incisional infection of surgical site Assessment & Plan: Gradual improvement in wound drainage. Continue local care and IV abx Status: Acute
--- NOTE | 2018-03-17 12:31 | CP.PCM.PCO ---
Physician Communication Note - Physician Communication Note Physician Communication Note: Dressings changed w/ new packing
[2018-03-18] MEDS: Piperacillin/Tazobact 3.375 GM in Sodium Chloride 0.9% 100 ML IVPB SCH ×4 (00:02→23:23)
[2018-03-18] MEDS ORDERED: Piperacillin/Tazobact 3.375 GM in Sodium Chloride 0.9% 100 ML IVPB STA (05:45)
--- NOTE | 2018-03-18 08:00 | CP.PCM.PCO ---
Physician Communication Note - Physician Communication Note Physician Communication Note: Continue daily flushing of wounds, packing and dressing change.
[2018-03-18] MEDS: POLYETHYLENE GLYCOL 3350 17 GM/Dose PACKET PO SCH (08:04)
--- NOTE | 2018-03-18 18:19 | CP.PCM.PN ---
Subjective - Date & Time of Evaluation Date of Evaluation: 03/18/18 Time of Evaluation: 18:18 - Subjective Subjective: Pt seen in the room doing ok pain is controlled, about a 7/10 dressing changes are getting easier. hopefully will be able to change to PO meds soon colostomy intact and working Objective - Vital Signs/Intake and Output Vital Signs (last 24 hours): Temp Pulse Resp BP Pulse Ox 98.3 F 72 20 128/83 94 L 03/18/18 16:42 03/18/18 16:42 03/18/18 16:42 03/18/18 16:42 03/18/18 16:42 - Medications Medications: Current Medications Acetaminophen (Tylenol 325mg Tab) 325 mg PO Q4 PRN PRN Reason: Pain, Mild (1-3) Acetaminophen (Tylenol 325mg Tab) 650 mg PO Q6 PRN PRN Reason: Pain, moderate (4-7) Last Admin: 03/14/18 21:20 Dose: 650 mg Piperacillin Sod/Tazobactam (Sod 3.375 gm/ Sodium Chloride) 100 mls @ 100 mls/hr IVPB 0600,1200,1800,0000 [facility]; Protocol Last Admin: 03/18/18 17:06 Dose: 100 mls/hr Ibuprofen (Motrin Tab) 800 mg PO Q8 PRN PRN Reason: Pain, Mild (1-3) Metformin HCl (Glucophage) 500 mg PO BIDWM [facility] Last Admin: 03/18/18 17:06 Dose: 500 mg Metoprolol Succinate (Toprol Xl) 100 mg PO DAILY [facility] Last Admin: 03/15/18 08:09 Dose: Not Given Morphine Sulfate (Morphine) 2 mg IVP Q6 PRN PRN Reason: Pain, severe (8-10) Last Admin: 03/18/18 14:17 Dose: 2 mg Polyethylene Glycol (Miralax) 17 gm PO DAILY [facility] Last Admin: 03/18/18 08:04 Dose: 17 gm Trazodone HCl (Desyrel) 50 mg PO HS [facility] Last Admin: 03/17/18 22:12 Dose: 50 mg Venlafaxine HCl (Effexor) 37.5 mg PO DAILY [facility] Last Admin: 03/18/18 08:04 Dose: Not Given
--- NOTE | 2018-03-18 20:02 | CP.PCM.PN ---
Subjective - Date & Time of Evaluation Date of Evaluation: 03/18/18 Time of Evaluation: 12:00 - Subjective Subjective: Patient in good spirits. Less drainage during dressing changes. Objective - Vital Signs/Intake and Output Vital Signs (last 24 hours): Temp Pulse Resp BP Pulse Ox 98.3 F 81 20 123/84 94 L 03/18/18 19:33 03/18/18 19:33 03/18/18 19:33 03/18/18 19:33 03/18/18 19:33 - Medications Medications: Current Medications Acetaminophen (Tylenol 325mg Tab) 325 mg PO Q4 PRN PRN Reason: Pain, Mild (1-3) Acetaminophen (Tylenol 325mg Tab) 650 mg PO Q6 PRN PRN Reason: Pain, moderate (4-7) Last Admin: 03/14/18 21:20 Dose: 650 mg Piperacillin Sod/Tazobactam (Sod 3.375 gm/ Sodium Chloride) 100 mls @ 100 mls/hr IVPB 0600,1200,1800,0000 [facility]; Protocol Last Admin: 03/18/18 17:06 Dose: 100 mls/hr Ibuprofen (Motrin Tab) 800 mg PO Q8 PRN PRN Reason: Pain, Mild (1-3) Metformin HCl (Glucophage) 500 mg PO BIDWM [facility] Last Admin: 03/18/18 17:06 Dose: 500 mg Metoprolol Succinate (Toprol Xl) 100 mg PO DAILY [facility] Last Admin: 03/15/18 08:09 Dose: Not Given Morphine Sulfate (Morphine) 2 mg IVP Q6 PRN PRN Reason: Pain, severe (8-10) Last Admin: 03/18/18 14:17 Dose: 2 mg Polyethylene Glycol (Miralax) 17 gm PO DAILY [facility] Last Admin: 03/18/18 08:04 Dose: 17 gm Trazodone HCl (Desyrel) 50 mg PO [facility] Last Admin: 03/17/18 22:12 Dose: 50 mg Venlafaxine HCl (Effexor) 37.5 mg PO DAILY [facility] Last Admin: 03/18/18 08:04 Dose: Not Given - Head Exam Head Exam: ATRAUMATIC - Eye Exam Eye Exam: Normal appearance, PERRL - ENT Exam ENT Exam: Normal Exam - Neck Exam Neck Exam: Normal Inspection - Respiratory Exam Respiratory Exam: Clear to Ausculation Bilateral - GI/Abdominal Exam GI & Abdominal Exam: Soft, Normal Bowel Sounds. absent: Tenderness Assessment and Plan (1) Superficial incisional infection of surgical site Assessment & Plan: Doing well clinically. Continue current care with wound care as well as IV antibiotics. Status: Acute
[2018-03-19] MEDS: Piperacillin/Tazobact 3.375 GM in Sodium Chloride 0.9% 100 ML IVPB SCH ×3 (05:21→17:56)
[2018-03-19] MEDS ORDERED: Morphine 4 MG/ML VIAL IVP PRN (05:45)
--- NOTE | 2018-03-19 08:05 | CP.PCM.PCO ---
Physician Communication Note - Physician Communication Note Physician Communication Note: Continue wound care daily. Flushing, packing, and dressing.
[2018-03-19] MEDS: POLYETHYLENE GLYCOL 3350 17 GM/Dose PACKET PO SCH ×2 (10:22→10:25)
--- NOTE | 2018-03-19 19:55 | CP.PCM.PN ---
Subjective - Date & Time of Evaluation Date of Evaluation: 03/19/18 Time of Evaluation: 09:00 - Subjective Subjective: Patient without complaint. Dressing in place. Objective - Vital Signs/Intake and Output Vital Signs (last 24 hours): Temp Pulse Resp BP Pulse Ox 98.4 F 76 20 126/79 96 03/19/18 16:24 03/19/18 16:24 03/19/18 16:24 03/19/18 16:24 03/19/18 16:24 - Medications Medications: Current Medications Acetaminophen (Tylenol 325mg Tab) 325 mg PO Q4 PRN PRN Reason: Pain, Mild (1-3) Acetaminophen (Tylenol 325mg Tab) 650 mg PO Q6 PRN PRN Reason: Pain, moderate (4-7) Last Admin: 03/14/18 21:20 Dose: 650 mg Piperacillin Sod/Tazobactam (Sod 3.375 gm/ Sodium Chloride) 100 mls @ 100 mls/hr IVPB 0600,1200,1800,0000 [facility]; Protocol Last Admin: 03/19/18 17:56 Dose: 100 mls/hr Ibuprofen (Motrin Tab) 800 mg PO Q8 PRN PRN Reason: Pain, Mild (1-3) Metformin HCl (Glucophage) 500 mg PO BIDWM [facility] Last Admin: 03/19/18 17:56 Dose: 500 mg Metoprolol Succinate (Toprol Xl) 100 mg PO DAILY [facility] Last Admin: 03/15/18 08:09 Dose: Not Given Morphine Sulfate (Morphine) 2 mg IVP Q6 PRN PRN Reason: Pain, severe (8-10) Last Admin: 03/19/18 05:42 Dose: 2 mg Polyethylene Glycol (Miralax) 17 gm PO DAILY [facility] Last Admin: 03/19/18 10:25 Dose: Not Given Trazodone HCl (Desyrel) 50 mg PO HS [facility] Last Admin: 03/18/18 21:02 Dose: 50 mg Venlafaxine HCl (Effexor) 37.5 mg PO DAILY [facility] Last Admin: 03/19/18 10:24 Dose: Not Given - Head Exam Head Exam: ATRAUMATIC - Eye Exam Eye Exam: Normal appearance - ENT Exam ENT Exam: Normal Exam - Neck Exam Neck Exam: Full ROM - Respiratory Exam Respiratory Exam: Clear to Ausculation Bilateral - Cardiovascular Exam Cardiovascular Exam: REGULAR RHYTHM - GI/Abdominal Exam GI & Abdominal Exam: Soft. absent: Tenderness Assessment and Plan (1) Superficial incisional infection of surgical site Assessment & Plan: Continue local wound care and peripheral antibiotics. Status: Acute
[2018-03-20] MEDS: Piperacillin/Tazobact 3.375 GM in Sodium Chloride 0.9% 100 ML IVPB SCH ×4 (00:40→17:01)
[2018-03-20] MEDS: POLYETHYLENE GLYCOL 3350 17 GM/Dose PACKET PO SCH (08:18)
--- NOTE | 2018-03-20 13:12 | CP.PCM.PN ---
Subjective - Date & Time of Evaluation Date of Evaluation: 03/20/18 Time of Evaluation: 08:00 - Subjective Subjective: awake alert less depressed IV rx in progress denies fever less abdominal pain Objective - Vital Signs/Intake and Output Vital Signs (last 24 hours): Temp Pulse Resp BP Pulse Ox 98.9 F 72 20 125/84 97 03/20/18 08:18 18 08:18 18 08:18 03/20/18 08:18 03/20/18 08:18 - Medications Medications: Current Medications Acetaminophen (Tylenol 325mg Tab) 325 mg PO Q4 PRN PRN Reason: Pain, Mild (1-3) Acetaminophen (Tylenol 325mg Tab) 650 mg PO Q6 PRN PRN Reason: Pain, moderate (4-7) Last Admin: 03/14/18 21:20 Dose: 650 mg Piperacillin Sod/Tazobactam (Sod 3.375 gm/ Sodium Chloride) 100 mls @ 100 mls/hr IVPB 0600,1200,1800,0000 [facility]; Protocol Last Admin: 03/20/18 12:43 Dose: 100 mls/hr Ibuprofen (Motrin Tab) 800 mg PO Q8 PRN PRN Reason: Pain, Mild (1-3) Metformin HCl (Glucophage) 500 mg PO BIDWM [facility] Last Admin: 03/20/18 08:18 Dose: 500 mg Metoprolol Succinate (Toprol Xl) 100 mg PO DAILY [facility] Last Admin: 03/15/18 08:09 Dose: Not Given Morphine Sulfate (Morphine) 2 mg IVP Q6 PRN PRN Reason: Pain, severe (8-10) Last Admin: 03/19/18 05:42 Dose: 2 mg Polyethylene Glycol (Miralax) 17 gm PO DAILY [facility] Last Admin: 03/20/18 08:18 Dose: 17 gm Trazodone HCl (Desyrel) 50 mg PO HS [facility] Last Admin: 03/19/18 22:33 Dose: 50 mg Venlafaxine HCl (Effexor) 37.5 mg PO DAILY [facility] Last Admin: 03/20/18 08:19 Dose: Not Given - Constitutional Appears: Non-toxic, Chronically Ill - Head Exam Head Exam: NORMOCEPHALIC - Eye Exam Eye Exam: absent: Scleral icterus - ENT Exam ENT Exam: Mucous Membranes Dry - Neck Exam Neck Exam: absent: Lymphadenopathy - Respiratory Exam Respiratory Exam: Decreased Breath Sounds - Cardiovascular Exam Cardiovascular Exam: REGULAR RHYTHM - GI/Abdominal Exam GI & Abdominal Exam: Distended, Soft - Rectal Exam Rectal Exam: Deferred - Exam Exam: NORMAL INSPECTION - Extremities Exam Extremities Exam: absent: Pedal Edema - Back Exam Back Exam: absent: CVA tenderness (L), CVA tenderness (R) - Neurological Exam Neurological Exam: Alert, Awake, Oriented x3 - Psychiatric Exam Psychiatric exam: Depressed - Skin Skin Exam: Dry Assessment and Plan (1) Diverticulitis Status: Acute - Assessment and Plan (Free Text) Assessment: post op wound infection no drainable abscess no new cultures cont IV antibiotics
--- NOTE | 2018-03-20 19:17 | CP.PCM.PN ---
Subjective - Date & Time of Evaluation Date of Evaluation: 03/20/18 Time of Evaluation: 09:00 - Subjective Subjective: Patient increasing ambulation. No abdominal complaints. Objective - Vital Signs/Intake and Output Vital Signs (last 24 hours): Temp Pulse Resp BP Pulse Ox 98.4 F 72 20 135/85 96 03/20/18 15:53 03/20/18 15:53 03/20/18 15:53 03/20/18 15:53 03/20/18 15:53 - Medications Medications: Current Medications Acetaminophen (Tylenol 325mg Tab) 325 mg PO Q4 PRN PRN Reason: Pain, Mild (1-3) Acetaminophen (Tylenol 325mg Tab) 650 mg PO Q6 PRN PRN Reason: Pain, moderate (4-7) Last Admin: 03/20/18 18:13 Dose: 650 mg Piperacillin Sod/Tazobactam (Sod 3.375 gm/ Sodium Chloride) 100 mls @ 100 mls/hr IVPB 0600,1200,1800,0000 [facility]; Protocol Last Admin: 03/20/18 17:01 Dose: 100 mls/hr Ibuprofen (Motrin Tab) 800 mg PO Q8 PRN PRN Reason: Pain, Mild (1-3) Metformin HCl (Glucophage) 500 mg PO BIDWM [facility] Last Admin: 03/20/18 17:01 Dose: 500 mg Metoprolol Succinate (Toprol Xl) 100 mg PO DAILY [facility] Last Admin: 03/15/18 08:09 Dose: Not Given Morphine Sulfate (Morphine) 2 mg IVP Q6 PRN PRN Reason: Pain, severe (8-10) Last Admin: 03/19/18 05:42 Dose: 2 mg Polyethylene Glycol (Miralax) 17 gm PO DAILY [facility] Last Admin: 03/20/18 08:18 Dose: 17 gm Trazodone HCl (Desyrel) 50 mg PO HS [facility] Last Admin: 03/19/18 22:33 Dose: 50 mg Venlafaxine HCl (Effexor) 37.5 mg PO DAILY [facility] Last Admin: 03/20/18 08:19 Dose: Not Given - Head Exam Head Exam: ATRAUMATIC - Eye Exam Eye Exam: Normal appearance Pupil Exam: PERRL - ENT Exam ENT Exam: Mucous Membranes Moist - Neck Exam Neck Exam: Full ROM - Respiratory Exam Respiratory Exam: Clear to Ausculation Bilateral - Cardiovascular Exam Cardiovascular Exam: REGULAR RHYTHM - GI/Abdominal Exam GI & Abdominal Exam: Soft, Normal Bowel Sounds. absent: Tenderness Assessment and Plan (1) Superficial incisional infection of surgical site Assessment & Plan: Doing well with wound care and IV abx. Status: Acute
--- NOTE | 2018-03-20 22:24 | CP.PCM.PCO ---
Physician Communication Note - Physician Communication Note Physician Communication Note: Wound irrigated, packing and dressings changed
[2018-03-21] MEDS: Piperacillin/Tazobact 3.375 GM in Sodium Chloride 0.9% 100 ML IVPB SCH ×3 (00:49→11:48)
[2018-03-21] MEDS: POLYETHYLENE GLYCOL 3350 17 GM/Dose PACKET PO SCH (08:11)
--- NOTE | 2018-03-21 09:25 | CP.PCM.PN ---
Subjective - Date & Time of Evaluation Date of Evaluation: 03/21/18 Time of Evaluation: 09:24 - Subjective Subjective: GENERAL SURGERY NOTE Local wound care - Packing of all openings (approx 4 midline openings) after aggressive flushing with normal saline - Pack all openings in the direction of the tracts, Pack with 1/4 Iodoform packing - 4*4 gauze and ABD can be used for dressing - Twice a day Discussed with Dr. Sebastián Armendariz Objective - Vital Signs/Intake and Output Vital Signs (last 24 hours): Temp Pulse Resp BP Pulse Ox 98.4 F 68 20 127/84 97 03/21/18 08:08 03/21/18 08:08 03/21/18 08:08 03/21/18 08:08 03/21/18 08:08 - Medications Medications: Current Medications Acetaminophen (Tylenol 325mg Tab) 325 mg PO Q4 PRN PRN Reason: Pain, Mild (1-3) Acetaminophen (Tylenol 325mg Tab) 650 mg PO Q6 PRN PRN Reason: Pain, moderate (4-7) Last Admin: 03/20/18 18:13 Dose: 650 mg Piperacillin Sod/Tazobactam (Sod 3.375 gm/ Sodium Chloride) 100 mls @ 100 mls/hr IVPB 0600,1200,1800,0000 [facility]; Protocol Last Admin: 03/21/18 07:09 Dose: 100 mls/hr Ibuprofen (Motrin Tab) 800 mg PO Q8 PRN PRN Reason: Pain, Mild (1-3) Metformin HCl (Glucophage) 500 mg PO BIDWM [facility] Last Admin: 03/21/18 08:11 Dose: 500 mg Metoprolol Succinate (Toprol Xl) 100 mg PO DAILY [facility] Last Admin: 03/15/18 08:09 Dose: Not Given Morphine Sulfate (Morphine) 2 mg IVP Q6 PRN PRN Reason: Pain, severe (8-10) Last Admin: 03/19/18 05:42 Dose: 2 mg Polyethylene Glycol (Miralax) 17 gm PO DAILY [facility] Last Admin: 03/21/18 08:11 Dose: 17 gm Trazodone HCl (Desyrel) 50 mg PO [facility] Last Admin: 03/20/18 22:25 Dose: 50 mg Venlafaxine HCl (Effexor) 37.5 mg PO DAILY [facility] Last Admin: 03/21/18 08:11 Dose: Not Given
--- NOTE | 2018-03-21 15:05 | CP.PCM.DIS ---
Provider - Provider Date of Admission: 03/13/18 13:35 Attending physician: Bill López MD Consults: 03/13/18 14:24 Gastroenterology Consult Routine Comment: Consulting Provider: Jamir Johnson Consulting Physician: Jamir Johnson Reason for Consult: abdominal wound infection General Surgery Consult Routine Comment: Consulting Provider: Ming Lowery Consulting Physician: Ming Lowery Reason for Consult: Abdominal wound infection Infectious Disease Consult Routine Comment: Consulting Provider: Napoleon Aguilera Consulting Physician: Napoleon Aguilera Reason for Consult: abdominal wound infection 03/13/18 20:52 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 Time Spent in preparation of Discharge (in minutes): 35 Diagnosis - Discharge Diagnosis (1) Enterocutaneous fistula Status: Chronic Hospital Course - Lab Results Lab Results: Most Recent Lab Values POC Glucose (mg/dL) 128 mg/dL (65-110) H 03/20/18 15:59 - Hospital Course Hospital Course: 52 yo male with PMHx HTN, DM, psoriasis, ADRIENNE presented to ED s/p Hartmans procedure (1 month ago) with incision pain, purulent discharge and noted to have enterocutaneous fistula/ wound dehiscence with wound cx growing E.Coli. Was seen by surgery who did not recommend any surgical intervention. Id was consulted and patient was started on Zosyn to be completed for 3 weeks. He had Picc line inserted and was transferred to TCU for the IV antibiotic treatment. Pt was also evaluated by Psych, diagnosed with depressive symptoms secondary to medical condition and started on Trazadone and Venlafaxine. Will now be discharged to subacute rehab center to finish the remainder of his IV Zosyn. Discharge Exam - Head Exam Head Exam: ATRAUMATIC - Eye Exam Eye Exam: Normal appearance - ENT Exam ENT Exam: Mucous Membranes Moist - Respiratory Exam Respiratory Exam: Clear to PA & Lateral. absent: Rales, Wheezes - Cardiovascular Exam Cardiovascular Exam: REGULAR RHYTHM, +S1, +S2. absent: Systolic Murmur - GI/Abdominal Exam GI & Abdominal Exam: Soft. absent: Distended, Tenderness Additional comments: Ostomy in place - Extremities Exam Extremities exam: normal inspection - Neurological Exam Neurological exam: Alert, Oriented x3 - Psychiatric Exam Psychiatric exam: Normal Affect - Skin Skin Exam: Normal Color Discharge Plan - Discharge Medications Prescriptions: Metoprolol Succinate XL [Toprol XL] 100 mg PO DAILY 30 Days #30 tab traZODone [Desyrel] 50 mg PO HS 30 Days #30 tab Venlafaxine [Effexor] 37.5 mg PO DAILY 30 Days #30 tab - Follow Up Plan Condition: GOOD Disposition: HOME/ ROUTINE Instructions: Wound Care (DC), Preventing Falls, Wound Incision and Drainage (DC), Wound Infection Additional Instructions: Please follow up with Dr. Lowery on 03/28 at 4 pm for wound check. [address] [place] [address] call office to confirm appointment Referrals: Johann ACOSTA,Juanjose Scott [Non-Staff] - Jorge Alberto Costa MD [Staff Provider] - Jamir Johnson MD [Staff Provider] - Ming Lowery MD [Staff Provider] -
[2018-03-21 17:24] VITALS: BP 119/83; PULSE 82; TEMP 98.2; O2SAT 94
--- NOTE | 2018-03-21 18:28 | CP.PCM.PN ---
Subjective - Date & Time of Evaluation Date of Evaluation: 03/21/18 Time of Evaluation: 18:28 - Subjective Subjective: Patient seen in the room set for d/c to [facility]. likely will change to oral pain medication denies sob/cp doing well in therapies he has lost more than 40 pounds and wants to lose 100 Objective - Vital Signs/Intake and Output Vital Signs (last 24 hours): Temp Pulse Resp BP Pulse Ox 98.2 F 82 20 119/83 94 L 03/21/18 17:23 03/21/18 17:23 03/21/18 17:23 03/21/18 17:23 03/21/18 17:23 - Medications Medications: Current Medications Acetaminophen (Tylenol 325mg Tab) 325 mg PO Q4 PRN PRN Reason: Pain, Mild (1-3) Acetaminophen (Tylenol 325mg Tab) 650 mg PO Q6 PRN PRN Reason: Pain, moderate (4-7) Last Admin: 03/20/18 18:13 Dose: 650 mg Piperacillin Sod/Tazobactam (Sod 3.375 gm/ Sodium Chloride) 100 mls @ 100 mls/hr IVPB 0600,1200,1800,0000 [facility]; Protocol Last Admin: 03/21/18 11:48 Dose: 100 mls/hr Ibuprofen (Motrin Tab) 800 mg PO Q8 PRN PRN Reason: Pain, Mild (1-3) Last Admin: 03/21/18 12:40 Dose: 800 mg Metformin HCl (Glucophage) 500 mg PO BIDWM [facility] Last Admin: 03/21/18 17:14 Dose: Not Given Metoprolol Succinate (Toprol Xl) 100 mg PO DAILY [facility] Last Admin: 03/15/18 08:09 Dose: Not Given Morphine Sulfate (Morphine) 2 mg IVP Q6 PRN PRN Reason: Pain, severe (8-10) Last Admin: 03/19/18 05:42 Dose: 2 mg Polyethylene Glycol (Miralax) 17 gm PO DAILY [facility] Last Admin: 03/21/18 08:11 Dose: 17 gm Trazodone HCl (Desyrel) 50 mg PO HS [facility] Last Admin: 03/20/18 22:25 Dose: 50 mg Venlafaxine HCl (Effexor) 37.5 mg PO DAILY [facility] Last Admin: 03/21/18 08:11 Dose: Not Given
== END 2018-03-21 18:36 | DRG 462 ==
LOC: H.TCU 13:35
PROVIDERS: ADMIT Family Medicine; ATTEND Family Medicine
PROC: 3E03329 Introduction of Other Anti-infective into Peripheral Vein, Percutaneous Approach (ICD-10-PCS; principal; 2018-03-13)
PROC: F07Z9FZ Gait Training/Functional Ambulation Treatment using Assistive, Adaptive, Supportive or Protective Equipment (ICD-10-PCS; 2018-03-13)
PROC: F08Z4FZ Home Management Treatment using Assistive, Adaptive, Supportive or Protective Equipment (ICD-10-PCS; 2018-03-13)
PROC: F07M6FZ Therapeutic Exercise Treatment of Musculoskeletal System - Whole Body using Assistive, Adaptive, Supportive or Protective Equipment (ICD-10-PCS; 2018-03-14)
DX: T81.41XD Infection following a procedure, superficial incisional surgical site, subsequent encounter (principal); K63.2 Fistula of intestine; L02.211 Cutaneous abscess of abdominal wall; F06.31 Mood disorder due to known physiological condition with depressive features; T81.31XD Disruption of external operation (surgical) wound, not elsewhere classified, subsequent encounter; B96.20 Unspecified Escherichia coli [E. coli] as the cause of diseases classified elsewhere; Z98.0 Intestinal bypass and anastomosis status; K57.92 Diverticulitis of intestine, part unspecified, without perforation or abscess without bleeding; Z93.3 Colostomy status; E11.9 Type 2 diabetes mellitus without complications; I10 Essential (primary) hypertension; G47.33 Obstructive sleep apnea (adult) (pediatric); E66.01 Morbid (severe) obesity due to excess calories; L40.9 Psoriasis, unspecified; Z68.36 Body mass index [BMI] 36.0-36.9, adult; Z90.49 Acquired absence of other specified parts of digestive tract